=== PATIENT | male | born 1965 | race Caucasian/White ===

== ENCOUNTER 2016-08-25 10:53 | Outpatient (CLI) | payer MEDICARE, MEDICAID ==
[~2016-08-25] VITALS: Ht 182.9 cm; Wt 90.7 kg
[~2016-08-25 10:53] MED LIST: ALBU8.5H2 IH; ATR20T PO; DICL75TA2 PO; DULO60CA6 PO; FLUT1DIS26 IH; GBPN300C PO; MIRT30TA6 PO; MRTZ30T1 PO; TRM50T PO; VARE1TAB17 PO
[2016-08-25] MEDS ORDERED: BUPIVACAINE 0.25% 30 ML (SENSORCAINE) VIAL ONE (11:42)
[2016-08-25] MEDS ORDERED: TRIAMCINOLONE ACET (KENALOG-40) 40 MG/ML 1 ML VIAL ONE (11:42)
[2016-08-25 12:02] VITALS: BP 144/106
[2016-08-25 12:51] VITALS: BP 139/108
--- NOTE | 2016-08-25 14:48 | Pain Medicine-Procedure ---
Procedure Pre-Op/Post-Op Diagnosis Diagnosis: disc disorder with radiculopathy, lumbar Indications for Operation Low back pain Attending Surgeon Lawrence Procedure Date of Service: Aug 25, 2016 Procedure: Lumbar Epidural Steroid Injection at the L4-L5 level under Fluoroscopic Guidance Procedure: Patient was identified in the holding area. After risks, benefits, and alternatives were discussed with the patient, informed consent was obtained. Patient was brought to the fluoroscopy suite and placed prone on the procedure room table. A time out was performed. Vital signs were monitored throughout the procedure. The patients low back was prepped and draped in the usual sterile fashion. The patients skin was anesthetized using 2% Lidocaine. A Tuohy needle was inserted and advanced to the L4-L5 epidural space under fluoroscopic guidance using the loss of resistance technique and intermittent projection of fluoroscopy. There was no paresthesia with needle placement. The needle position was confirmed in both the AP and lateral view. After negative aspiration 2ml of contrast was injected under live fluoroscopy which showed good spread of the contrast in the epidural space at the appropriate level, there was no intravascular or subarachnoid spread. Again, after negative aspiration for heme or CSF, 2 ml of 0.25% Bupivicaine, 2ml of preservative free normal saline, and 80mg of Kenalog was injected. The needle was removed and a sterile bandage was placed and the patient was transferred to the recovery area in stable condition. After a brief period of observation, patient was discharged to home with no new neurological deficits and no apparent complications. Complications None THAD PEÑA MD Aug 25, 2016 2:48 pm
== END 2016-08-25 12:52 | disposition home or self-care (01) ==
LOC: CARD 10:53
PROVIDERS: ATTEND Pain Medicine Pain Medicine
DX: M51.16 Intervertebral disc disorders with radiculopathy, lumbar region (principal); Z79.899 Other long term (current) drug therapy
CPT/HCPCS: 62323

== ENCOUNTER 2019-04-24 13:06 | Emergency (ER) | payer MEDICAID, MEDICARE ==
[~2019-04-24] VITALS: Ht 182.9 cm; Wt 88.6 kg
--- NOTE | 2019-04-24 13:24 | ED Lower Extremity ---
General Chief Complaint: Lower Extremity Stated Complaint: FALL - LT KNEE PAIN Source: patient Exam Limitations: no limitations History of Present Illness Date Seen by Provider: Apr 24, 2019 Time Seen by Provider: 13:10 Initial Comments The patient is a 54-year-old male presents for evaluation of left knee pain. He states that he was in a parking lot when he fell directly onto the left knee. He is not sure why this happened. He reports previous anterior cruciate ligament surgery to the knee about 2 years ago. He states that he has a knee immobilizer and crutches at home. He was able to drive himself to the emergency department and ambulated into the room without any difficulty or assistance. He denies any other injuries or complaints from the fall and specifically denies any head or neck pain. Pain/Injury Location: left knee Method of Injury: fell Modifying Factors: Improves With Movement (makes it worse), Improves With Rest (makes it better) Allergies and Home Medications Allergies Coded Allergies: No Known Drug Allergies (Unverified , 01/23/12) Home Medications Albuterol 8.5 Gm Hfa.aer.ad, 8.5 GM IH Q4H, (Reported) 2 PUFFS Atorvastatin 20 Mg Tablet, 1 EACH PO DAILY, (Reported) Diclofenac Sodium 75 Mg Tablet.dr, 75 MG PO BID, (Reported) Duloxetine Hcl 60 Mg Capsule.dr, 1 EACH PO DAILY, (Reported) Fluticasone/Salmeterol 1 Disk Inhp, 1 PUFF IH BID, (Reported) 1 PUFF Gabapentin 300 Mg Cap, 300 MG PO DAILY, (Reported) Mirtazapine 30 Mg Tablet, 30 MG PO HS, (Reported) Mirtazapine 30 Mg Tab, 1 EACH PO HS, (Reported) Tramadol Hcl 50 Mg Tab, 50 MG PO Q4H, (Reported) Varenicline Tartrate 1 Mg Tablet, 1 MG PO BID, (Reported) Patient Home Medication List Home Medication List Reviewed: Yes Review of Systems Constitutional: no symptoms reported EENTM: no symptoms reported Respiratory: no symptoms reported Cardiovascular: no symptoms reported Gastrointestinal: no symptoms reported Genitourinary: no symptoms reported Musculoskeletal: no symptoms reported Skin: no symptoms reported Psychiatric/Neurological: No Symptoms Reported All Other Systems Reviewed Negative Unless Noted: Yes Past Lqvashd-Xdkycj-Zlgpex Hx Past Med/Social Hx: Reviewed Nursing Past Med/Soc Hx Physical Exam Vital Signs Vital Signs - First Documented 04/24/19 13:10 Temp 36.4 Pulse 98 Resp 22 B/P (MAP) 141/91 (108) Pulse Ox 97 O2 Delivery Room Air Capillary Refill : Height, Weight, BMI Height: 6'0.00" Weight: 200lbs. 0.0oz. 90.370042yt; 27.1 BMI Method: General Appearance: WD/WN, no apparent distress HEENT: PERRL/EOMI, TMs normal, pharynx normal Neck: non-tender, full range of motion Cardiovascular: regular rate, rhythm, no edema, no JVD Respiratory: chest non-tender, normal breath sounds, no respiratory distress, no accessory muscle use Gastrointestinal: normal bowel sounds, non tender, soft Back: normal inspection, no CVA tenderness Hips: bilateral hip non-tender, bilateral hip normal inspection, bilateral hip normal range of motion Knees: right knee non-tender, right knee normal inspection, right knee normal range of motion; left knee bone tenderness (tenderness palpation over the left medial patella, no deformity noted, most swelling or joint effusion, negative anterior drawer sign, no apparent discomfort with varus or valgus strain) 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 Advised the patient to use his crutches and knee immobilizer at home and to follow up with his orthopedic surgeon and/or PCP within the next 2-3 days. Advised the patient to take Tylenol or ibuprofen at home for pain relief and to take the prescribed Ultram as needed for breakthrough pain. Diagnostic Imaging Comments [facility], [place] NAME: JUVENAL MALIN [facility] REC#: [id number] PT STATUS: REG ER : 1965 PHYSICIAN: BLAKE ADAMS DO ADMIT DATE: 04/24/19/ER FS Draft Date of Exam:04/24/19 KNEE 3 VIEW LEFT INDICATION: Fall. Left knee pain. History of previous ACL repair. FINDINGS: Three views. Surgical changes from previous ACL repair are noted. Surgical anchor along the lateral femoral condyle is in good position. ACL tunnel is present without significant hypertrophic changes noted. The articulating surfaces are smooth. There is some narrowing of the medial joint space likely from previous partial meniscectomy. IMPRESSION: 1. No acute abnormality is demonstrated. 2. Postsurgical changes with mild narrowing of the medial joint space. Dictated on workstation # [id number] Dict: 04/24/19 1327 Trans: 04/24/19 1336 [id number] Interpreted by: ARIELLA BYERS MD Electronically signed by: Departure Impression Primary Impression: Left knee injury Disposition: HOME, SELF-CARE Condition: Stable Departure-Patient Inst. Decision time for Depature: 14:12 Referrals: JUMA QUACH DO (PCP) Primary Care Physician ARIELLA SHEIKH (Family) Primary Care Physician Patient Instructions: Knee Pain (DC) Add. Discharge Instructions: Use your knee immobilizer and crutches at home. Follow-up with your orthopedic doctor in the next 1-2 days. Return to the ER immediately for new or worsening symptoms. Take the prescribed medicine as needed. Scripts Tramadol HCl (Ultram) 50 Mg Tablet 50 MG PO Q6H PRN for PAIN-MODERATE, #8 TAB Prov: BLAKE ADAMS DO 04/24/19 BLAKE ADAMS DO Apr 24, 2019 13:24
--- NOTE | 2019-04-24 13:37 | Diagnostic Imaging Report ---
INDICATION: Fall. Left knee pain. History of previous ACL repair. FINDINGS: Three views. Surgical changes from previous ACL repair are noted. Surgical anchor along the lateral femoral condyle is in good position. ACL tunnel is present without significant hypertrophic changes noted. The articulating surfaces are smooth. There is some narrowing of the medial joint space likely from previous partial meniscectomy. IMPRESSION: 1. No acute abnormality is demonstrated. 2. Postsurgical changes with mild narrowing of the medial joint space. Dictated by: Dictated on workstation # [id number]
[2019-04-24] MEDS ORDERED: TRAM-42 PO (14:14)
[2019-04-24 14:40] VITALS: BP 141/91
== END 2019-04-24 14:31 | disposition home or self-care (01) ==
LOC: EDUNIT# 13:06 → ER FS 13:08
DX: S89.92XA Unspecified injury of left lower leg, initial encounter (principal); W01.0XXA Fall on same level from slipping, tripping and stumbling without subsequent striking against object, initial encounter; Y92.481 Parking lot as the place of occurrence of the external cause
CPT/HCPCS: 73562

== ENCOUNTER → 2019-09-12 | Outpatient (CLI) | payer MEDICARE ==
[~2019-09-12] MED LIST changes: +TRAM-42 PO
[2019-09-12 15:38] LABS: HEMATOCRIT 46 % (40-54); LYMPHOCYTES % (AUTO) 22 % (12-44); MEAN CORPUSCULAR HEMOGLOBIN 29 PG (25-34); MEAN CORPUSCULAR HGB CONC 33 G/DL (32-36); MEAN CORPUSCULAR VOLUME 89 FL (80-99); MEAN PLATELET VOLUME 9.9 FL (7.4-10.4); MONOCYTES % (AUTO) 16 % (0-12); PLATELET COUNT 238 10^3/uL (130-400); RED CELL DISTRIBUTION WIDTH 13.1 % (10.0-14.5); WHITE BLOOD COUNT 7.8 10^3/uL (4.3-11.0)
[2019-09-12 15:39] LABS: BASOPHILS # (AUTO) 0.1 10^3/uL (0.0-0.1); BASOPHILS % (AUTO) 1 % (0-10); EOSINOPHILS # (AUTO) 0.1 10^3/uL (0.0-0.3); EOSINOPHILS % (AUTO) 1 % (0-10); LYMPHOCYTES # (AUTO) 1.7 X 10^3 (1.0-4.0); MONOCYTES # (AUTO) 1.3 X 10^3 (0.0-1.0); NEUTROPHILS # (AUTO) 4.7 X 10^3 (1.8-7.8); NEUTROPHILS % (AUTO) 60 % (42-75)
--- NOTE | 2019-09-12 16:21 | Diagnostic Imaging Report ---
INDICATION: Left knee pain and swelling. FINDINGS: Three views of the left knee show post surgical changes from ACL reconstruction. There is no acute fracture or dislocation. The joint spaces are well-maintained. The articular surfaces are smooth. IMPRESSION: Postop changes from ACL reconstruction. No acute abnormality is seen. Dictated by: Dictated on workstation # [id number]
== END ==
LOC: LAB FS 15:17
PROVIDERS: ATTEND Nurse Practitioner Family
DX: M25.462 Effusion, left knee (principal); R29.898 Other symptoms and signs involving the musculoskeletal system
CPT/HCPCS: 36415; 73562; 85025

== ENCOUNTER 2019-10-05 05:54 | Outpatient (CLI) | payer MEDICARE ==
[~2019-10-05] VITALS: Ht 182 cm; Wt 95.0 kg
[2019-10-05] MEDS ORDERED: GBPN600T PO (12:05)
[2019-10-05] MEDS ORDERED: CITA40TA19 PO (12:05)
[2019-10-05] MEDS ORDERED: ATOR40TA PO (12:05)
[2019-10-05] MEDS ORDERED: AMIT25TA9 PO (12:05)
== END 2019-10-05 13:59 | disposition home or self-care (01) ==
LOC: PREOP 05:54
PROVIDERS: ATTEND Orthopaedic Surgery
DX: Z01.818 Encounter for other preprocedural examination (principal)

== ENCOUNTER 2019-10-12 10:02 | Day surgery (SDC) | payer MEDICARE, MEDICAID ==
[2019-10-12] VITALS (10 sets, daily range): BP systolic 119–146; BP diastolic 75–99
[~2019-10-12] VITALS: Ht 182 cm; Wt 95.0 kg
[~2019-10-12 10:02] MED LIST changes: +AMIT25TA9 PO; +ATOR40TA PO; +CITA40TA19 PO; +GBPN600T PO; +HYDROcodone/APAP 7.5 MG/325 MG (LORTAB, LORCET PLUS) TABLET PO PRN
[2019-10-12] MEDS ORDERED: proPOfol 200 MG/20 ML (DIPRIVAN) VIAL IV ONE (10:28)
[2019-10-12] MEDS ORDERED: LIDOCAINE PF 2% 5 ML (XYLOCAINE) VIAL ONE (10:28)
[2019-10-12] MEDS ORDERED: MIDAZOLAM 2 MG/2 ML (VERSED) VIAL ONE (10:28)
[2019-10-12] MEDS ORDERED: SEVOFLURANE (ULTANE) 15 ML INHAL SOLN ONE (10:28)
[2019-10-12] MEDS ORDERED: fentaNYL INJECTION 100 MCG/2 ML AMP ONE (10:28)
[2019-10-12] MEDS ORDERED: BUPIVACAINE 0.5% 30 ML (SENSORCAINE) VIAL ONE (10:31)
[2019-10-12] MEDS ORDERED: ceFAZolin INJECTION 1,000 MG ONE (10:37)
[2019-10-12] MEDS ORDERED: WATER (STERILE) FOR INJECTION 10 ML ONE (10:37)
[2019-10-12] MEDS ORDERED: LACTATED RINGERS 1,000 ML IV PRN (10:37)
[2019-10-12] MEDS ORDERED: ceFAZolin INJECTION 1,000 MG in WATER (STERILE) FOR INJECTION 10 ML IV ONE (10:45)
--- NOTE | 2019-10-12 11:10 | Progress Note-Pre Operative ---
Pre-Operative Progress Note H&P Reviewed The H&P was reviewed, patient examined and no changes noted. Date Seen by Provider: Oct 12, 2019 Time Seen by Provider: 11:00 Date H&P Reviewed: Oct 12, 2019 Time H&P Reviewed: 07:35 Pre-Operative Diagnosis: symptomatic deep left tibia hardware JER HICKMAN MD Oct 12, 2019 11:10
--- NOTE | 2019-10-12 11:11 | Progress Note-Post Operative ---
Post-Operative Progess Note Surgeon (s)/Advertising Sales Assistant (s) Surgeon JER HICKMAN MD Advertising Sales Assistant: Valentin Buckley Pre-Operative Diagnosis symptomatic deep left tibia hardware Post-Operative Diagnosis let tibia cyst Procedure & Operative Findings Date of Procedure 10/12/19 Procedure Performed/Findings left tibia cyst excision and debridement Anesthesia Type GETA Estimated Blood Loss Estimated blood loss (mL): minimal Specimens/Packing Specimens Removed none Packing: none JER HICKMAN MD Oct 12, 2019 11:11
--- OUTSIDE RECORDS SUMMARY | 2019-10-12 11:14 | XMS REPORT ---
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 Name Role Phone Migration, Doctor Unavailable Unavailable PROBLEMS Type Condition ICD9-CM Code XZE41-GZ Code Onset Dates Condition S tatus SNOMED Code Problem Closed nondisplaced fracture of distal phalanx o f left ring finger S62.665A Jul, Active 02262818 Problem Insomnia G47.00 Active 530277716 Problem Mixed hyperlipidemia E78.2 Apr, Active 921939630 Problem Anxiety F41.9 Active 80675772 Problem Depression F32.9 Active 72171846 Problem Tremor, essential G25.0 Apr, Active 147888879 Problem Tobacco use Z72.0 Jul, Active 40322 3000 Problem Severe episode of recurrent major depressive disorder, without psychotic features F33.2 Active 49478774 Problem Generalized anxiety disorder F41.1 A ctive 09895508 Problem Depression, major, recurrent, in partial remission F33.41 Active 40999685 Problem COPD (chronic obstructive pulmonary disease) J44.9 Active 97430903 Problem Reactive airway disease, mild persistent, uncomplicated J45.30 Active 049887819 Problem Degenerative disc disease, lumbar M51.36 Active 11950403 Problem Pulmonary emphysema, unspecified emphysema type J4 3.9 Active 67558491 Problem Hyperlipemia E78.5 Active 9331865 4 Problem Essential hypertension I10 Active 94273683 Problem Mild episode of recurrent major depressive disorder F33.0 Active 681938530 Problem Edentulous K00.0 Active 009295313 ALLERGIES No Information ENCOUNTERS Encounter Location Date Diagnosis [facility] [address] [id number] [place] [address] 08 Dec, 2019 [facility] [address] [id number] [place] [address] Sep, [facility] [address] [id number] [place] [address] Sep, [place] [id number] [place] [address] Sep, [address] [place] [address] 17 Aug, 2019 Acute pain of left knee M25. 562 ; Swelling of knee M25.469 and Warmth of joint R29.898 [place] [address] [address] 11 Aug, 2019 [place] [address] [address] Aug, Hyperlipemia E78.5 [place] [address] [address] Jul, [place] [address] [address] Jul, Testicle trouble N50.9 ; Left knee pain, unspecified chronicity M25.562 ; Sore throat J02.9 and Hyperlipemia E78.5 [place] [address] [address] Jul, Generalized anxiety disorder F41.1 and M ild episode of recurrent major depressive disorder F33.0 [place] [address] [address] Jun, [place] [address] [address] Jun, [place] [address] [address] Jun, Testicle trouble N50.9 ; Generalized anx iety disorder F41.1 ; Hyperlipemia E78.5 ; COPD (chronic obstructive pulmonary disease) J44.9 and Tobacco abuse Z72.0 [place] [address] [address] Jun, Testicle trouble N50.9 ; Generalized anx iety disorder F41.1 ; Hyperlipemia E78.5 ; COPD (chronic obstructive pulmonary disease) J44.9 and Tobacco abuse Z72.0 [facility] [address] [facility] [place] [address] Jun, Generalized anxiety disorder F41.1 ; Mil d episode of recurrent major depressive disorder F33.0 and Mild episode of recurrent major depressive disorder F33.0 [facility] [address] [place] [address] May, Encounter for immunization Z 23 [facility] [address] [address] May, Mild episode of recurrent major depressi ve disorder F33.0 and Generalized anxiety disorder F41.1 [place] [id number] [place] [address] Apr, Generalized anxiety disorder F41.1 [place] [address] [address] Apr, Generalized anxiety disorder F41.1 and M ild episode of recurrent major depressive disorder F33.0 [facility] [id number] [place] [address] Mar, [facility] [address] [place] [address] Mar, [facility] [address] [id number] [place] [address] Jan, Generalized anxiety disorder F41.1 and M ild episode of recurrent major depressive disorder F33.0 [facility] [id number] [place] [address] Jan, Mild episode of recurrent major depressi ve disorder F33.0 ; Generalized anxiety disorder F41.1 and Mild episode of recurrent major depressive disorder F33.0 [facility] [id number] [place] [address] Dec, [facility] [id number] [place] [address] Dec, Generalized anxiety disorder F41.1 and M ild episode of recurrent major depressive disorder F33.0 [facility] [id number] [place] [address] November, Mild episode of recurrent major depressi ve disorder F33.0 and Generalized anxiety disorder F41.[address] [place] [address] November, [facility] [address] [address] Oct, Essential hypertension I10 [facility] [address] [address] Oct, Generalized anxiety disorder F41.1 and M ild episode of recurrent major depressive disorder F33.0 [place] [address] [address] Oct, Encounter for Medicare annual wellness e xam Z00.00 ; COPD (chronic obstructive pulmonary disease) J44.9 ; Mild episode of recurrent major depressive disorder F33.0 ; Mixed hyperlipidemia E78.2 ; Degenerative disc disease, lumbar M51.36 and Left foot pain M79.672 [place] [address] [address] Oct, Generalized anxiety disorder F41.1 and M ild episode of recurrent major depressive disorder F33.0 [facility] [address] [address] Oct, Generalized anxiety disorder F41.1 and M ild episode of recurrent major depressive disorder F33.0 [facility] [address] [address] Oct, Generalized anxiety disorder F41.1 [facility] [address] [address] Sep, Hyperlipemia E78.5 and Depression F32.9 [facility] [address] [address] Sep, [facility] [address] [address] Sep, Generalized anxiety disorder F41.1 and M ild episode of recurrent major depressive disorder F33.0 [facility] [id number] [place] [address] Sep, Generalized anxiety disorder F41.1 and M ild episode of recurrent major depressive disorder F33.0 [facility] [address] [facility] [place] [address] Aug, Mild episode of recurrent major depressi ve disorder F33.0 and Generalized anxiety disorder F41.1 [facility] [address] [facility] [place] [address] Jul, Generalized anxiety disorder F41.1 and M ild episode of recurrent major depressive disorder F33.0 [facility] [id number] [place] [address] Jul, Mild episode of recurrent major depressi ve disorder F33.0 and Generalized anxiety disorder F41.1 [facility] [id number] [place] [address] Jul, [facility] [address] [id number] [place] [address] Jun, [facility] [id number] [place] [address] Jun, [facility] [id number] [place] [address] Jun, Generalized anxiety disorder F41.1 and M ild episode of recurrent major depressive disorder F33.0 [facility] [id number] [place] [address] Jun, [facility] [id number] [place] [address] Feb, Mild episode of recurrent major depressi ve disorder F33.0 and Generalized anxiety disorder F41.1 [facility] [id number] [place] [address] November, Mild episode of recurrent major depressi ve disorder F33.0 and Generalized anxiety disorder F41.1 [place] [address] [address] November, [place] [address] [address] November, Mild episode of recurrent major depressi ve disorder F33.0 and Generalized anxiety disorder F41.1 [place] [address] [address] November, Mild episode of recurrent major depressi ve disorder F33.0 [place] [address] [address] Sep, Mild episode of recurrent major depressi ve disorder F33.0 [place] [address] [address] Sep, Acute pain of left knee M25.562 [place] [address] [address] 28 Aug, 2017 Mild episode of recurrent major depressi ve disorder F33.0 and Generalized anxiety disorder F41.1 [place] [address] [address] 15 Aug, 2017 Hyperlipemia E78.5 [place] [address] [address] 07 Aug, 2017 Acute pain of left knee M25.562 [place] [address] [address] 05 Aug, 2017 [place] [address] [address] Jul, COPD (chronic obstructive pulmonary dise ase) J44.9 and Edentulous K00.0 [place] [address] [address] Jul, Dental examination Z01.20 [place] [address] [address] Jul, Severe episode of recurrent major depres sive disorder, without psychotic features F33.2 [facility] [address] [address] Jun, Severe episode of recurrent major depres sive disorder, without psychotic features F33.2 and Generalized anxiety disorder F41.1 [facility] [address] [address] Jun, Callus of foot L84 ; Hyperlipemia E78.5 and Pulmonary emphysema, unspecified emphysema type J43.9 [facility] [address] [address] May, Generalized anxiety disorder F41.1 and M ild episode of recurrent major depressive disorder F33.0 [place] [address] [address] 07 May, 2017 Severe episode of recurrent major depres sive disorder, without psychotic features F33.2 [place] [address] [address] Apr, [place] [address] [address] Apr, Severe episode of recurrent major depres sive disorder, without psychotic features F33.2 and Generalized anxiety disorder F41.1 [place] [address] [address] Mar, Generalized anxiety disorder F41.1 [place] [address] [address] Feb, Hyperlipemia E78.5 [place] [address] [address] Feb, Generalized anxiety disorder F41.1 and S evere episode of recurrent major depressive disorder, without psychotic features F33.2 [place] [address] [address] Feb, Hyperlipemia E78.5 [facility] [address] [address] Feb, Generalized anxiety disorder F41.1 [place] [address] [address] Feb, Depression, major, recurrent, in partial remission F33.41 ; Hyperlipemia E78.5 ; Night sweats R61 ; Reactive airway disease, mild persistent, uncomplicated J45.30 and Essential hypertension I10 [place] [address] [address] Jan, Generalized anxiety disorder F41.1 and S evere episode of recurrent major depressive disorder, without psychotic features F33.2 [place] [address] [address] Dec, Anxiety F41.9 [place] [address] [address] Dec, Depression, major, recurrent, moderate F 33.1 ; Generalized anxiety disorder F41.1 and Insomnia G47.00 [place] [address] [address] November, Anxiety F41.9 [place] [address] [address] Sep, Depression, major, recurrent, in partial remission F33.41 [place] [address] [address] Sep, Reactive airway disease, mild persistent , uncomplicated J45.30 [place] [address] [address] Aug, Depression, major, recurrent, in partial remission F33.41 [place] [address] [address] Aug, Depression, major, recurrent, in partial remission F33.41 and Generalized anxiety disorder F41.1 [place] [address] [address] Jul, [place] [address] [address] May, Anxiety F41.9 [place] [address] [address] May, Depression, major, recurrent, moderate F 33.1 and Generalized anxiety disorder F41.1 [place] [address] [address] May, [place] [address] [address] Apr, [place] [address] [address] 29 Mar, 2016 Degenerative disc disease, lumbar M51.36 and Left foot pain M79.672 [place] [address] [address] Mar, Dysthymia F34.1 and Generalized anxiety disorder F41.1 [place] [address] [address] Jan, Depression, major, recurrent, in partial remission F33.41 ; Generalized anxiety disorder F41.1 and Difficulty controlling anger R45.4 [place] [address] [address] Jan, [place] [address] [address] Jan, [place] [address] [address] Jan, Dental examination Z01.20 [place] [address] [address] Jan, Back pain at L4-L5 level M54.5 [place] [address] [address] Dec, Low back pain M54.5 ; Other chronic pain G89.29 and Hyperlipemia E78.5 [place] [address] [address] Dec, Depression F32.9 ; Generalized anxiety d isorder F41.1 and Outbursts of anger R45.4 [facility] [id number] [place] [address] Dec, [facility] [address] [facility] [id number] [place] [address] November, Pain of right great toe M79. 674 [facility] [address] [address] November, [facility] [address] [address] November, [facility] [address] [address] Oct, [facility] [address] [address] Sep, [facility] [address] [address] Sep, [facility] [address] [address] Sep, COPD (chronic obstructive pulmonary dise ase) J44.9 ; Hyperlipidemia E78.5 ; Anxiety F41.9 ; Depression F32.9 and Insomnia G47.00 [facility] [address] [address] Sep, Depression F32.9 ; Anxiety F41.9 and Ins omnia G47.00 [facility] [address] [address] Sep, [facility] [address] [address] Sep, [facility] [address] [address] Sep, COPD (chronic obstructive pulmonary dise ase) J44.9 [facility] [address] [address] Sep, Hyperlipemia E78.5 [facility] [address] [address] Aug, COPD (chronic obstructive pulmonary dise ase) J44.9 ; Hyperlipidemia E78.5 ; Anxiety F41.9 ; Insomnia G47.00 ; Depression F32.9 and Heavy tobacco smoker >10 cigarettes per day F17.210 [facility] [address] [address] Aug, [facility] [address] [address] Aug, [facility] [address] [address] Aug, [place] [address] [address] Aug, Bronchitis J40 [place] [address] [address] Aug, [place] [address] [address] Jul, [facility] [address] [id number] Jul, Dental examination Z01.20 and Dental car ies K02.[address] [address] Jun, [place] [address] [address] Jun, Encounter for immunization Z23 ; Screeni ng for tuberculosis Z11.1 and Physical exam Z00.00 [place] [address] [address] May, [address] [address] May, Generalized anxiety disorder F41.1 and D epression, major, recurrent, in partial remission F33.[address] [address] Apr, Hyperlipidemia E78.5 [facility] [id number] [place] [address] Mar, Hyperlipemia 272.4 [facility] [address] [address] Feb, Routine general medical examination at [facility] V70.0 and Abrasion of hand, right, infected 914.1 [facility] [address] [address] Feb, Routine general medical examination at [facility] V70.0 ; Pain in soft tissues of limb 729.5 and Pain in tooth 525.9 [place] [address] [address] Feb, Major depressive disorder, recurrent epi sode, mild 296.31 and Generalized anxiety disorder 300.02 [place] [address] [address] Feb, [facility] [address] [address] Jan, [facility] [address] [address] Dec, [facility] [address] [address] Dec, [facility] [address] [address] November, [facility] [address] [address] November, Generalized anxiety disorder 300.02 and Major depressive disorder, recurrent episode, mild 296.31 [facility] [address] [address] Oct, [facility] [address] [address] Oct, [facility] [address] [address] Sep, [facility] [address] [id number] [facility] [place] [address] Sep, [facility] [place] [facility] [address] [id number] [place] [address] Sep, [facility] [place] [facility] [address] [id number] [place] [address] Sep, [facility] [place] [facility] [address] [id number] [place] [address] Aug, [facility] [place] [facility] [address] [id number] [place] [address] Aug, [facility] [place] [facility] [address] [id number] [place] [address] Aug, [facility] [place] [facility] [address] [id number] [place] [address] Aug, [facility] [place] [facility] [address] [id number] [place] [address] Aug, [facility] [place] [facility] [address] [id number] [place] [address] Aug, [facility] [place] [facility] [address] [id number] [place] [address] Aug, [facility] [place] [facility] [address] [id number] [place] [address] Jul, [facility] [place] [facility] [address] [id number] [place] [address] Jul, [facility] [place] [facility] [address] [id number] [place] [address] Jul, [facility] [place] [facility] [address] [id number] [place] [address] Jul, [facility] [place] [facility] [address] [id number] [place] [address] Jul, [facility] [place] [facility] [address] [id number] [place] [address] Jul, [facility] [place] [facility] [address] [id number] [place] [address] Jun, [facility] [place] [facility] [address] [facility] [id number] [facility] [place] [address] Jun, [facility] [place] [facility] [address] [facility] [id number] [facility] [place] [address] Feb, [facility] [place] [facility] [address] [id number] [facility] [place] [address] Feb, [facility] [place] [facility] [address] [id number] [place] [address] Jan, [facility] [place] [facility] [address] [facility] [id number] [place] [address] Jan, [facility] [place] [facility] [address] [id number] [place] [address] Jan, [facility] [place] [facility] [address] [id number] [facility] [place] [address] Jan, [facility] [place] [facility] [address] [id number] [facility] [place] [address] Oct, [facility] [place] [facility] [address] [id number] [facility] [place] [address] Oct, [facility] [place] [facility] [address] [id number] [place] [address] Oct, [facility] [place] [facility] [address] [id number] [place] [address] Oct, [facility] [place] [facility] [address] [id number] [place] [address] Oct, [facility] [place] [facility] [address] [id number] [place] [address] Oct, [facility] [place] [facility] [address] [id number] [place] [address] Sep, [facility] [place] [facility] [address] [id number] [place] [address] Sep, [facility] [place] [facility] [address] [id number] [place] [address] Aug, [facility] [place] [facility] [address] [id number] [place] [address] Aug, [facility] [place] [facility] [address] [facility] [id number] [place] [address] Jul, [facility] [place] [facility] [address] [id number] [place] [address] Jul, [facility] [place] [facility] [address] [id number] [place] [address] Jul, [facility] [place] [facility] [address] [id number] [place] [address] Jul, [facility] [place] [facility] [address] [id number] [place] [address] Jul, [facility] [place] [facility] [address] [id number] [place] [address] Apr, [facility] [place] [facility] [address] [id number] [place] [address] Apr, [facility] [place] [facility] [address] [id number] [place] [address] Mar, [facility] [place] [facility] [address] [id number] [place] [address] Feb, [facility] [place] [facility] [address] [id number] [place] [address] Jan, [facility] [place] [facility] [address] [id number] [place] [address] Jan, [facility] [place] [facility] [address] [id number] [place] [address] Oct, [facility] [place] [facility] [address] [id number] [place] [address] Sep, [facility] [place] [facility] [address] [id number] [place] [address] Sep, [facility] [place] [facility] [address] [id number] [place] [address] Sep, [facility] [address] [id number] [place] [address] Aug, [facility] [address] [id number] [place] [address] Aug, [facility] [address] [id number] [place] [address] May, [facility] [address] [id number] [place] [address] May, [facility] [address] [id number] [place] [address] May, [facility] [address] [id number] [place] [address] May, [facility] [address] [id number] [place] [address] May, [facility] [address] [id number] [place] [address] May, [facility] [id number] [place] [address] May, [facility] [address] [id number] [place] [address] May, [facility] [address] [id number] [place] [address] Apr, [facility] [address] [id number] [place] [address] Feb, [facility] [address] [id number] [place] [address] Jan, [facility] [address] [id number] [place] [address] Jan, [facility] [address] [id number] [place] [address] Jan, [facility] [address] [id number] [place] [address] Jan, [facility] [address] [id number] [place] [address] Jan, [facility] [address] [id number] [place] [address] Jan, [facility] [address] [id number] [facility] [place] [address] Dec, [facility] [address] [id number] [place] [address] Dec, [facility] [address] [id number] [place] [address] Dec, [facility] [address] [id number] [place] [address] Dec, [facility] [address] [id number] [place] [address] Dec, [facility] [address] [id number] [place] [address] November, [facility] [address] [id number] [place] [address] November, [facility] [address] [id number] [place] [address] November, [facility] [address] [id number] [place] [address] November, [facility] [address] [id number] [place] [address] November, [facility] [address] [id number] [place] [address] Oct, [facility] [address] [id number] [place] [address] Oct, [facility] [address] [id number] [place] [address] Oct, [facility] [address] [id number] [place] [address] May, [facility] [address] [id number] [place] [address] May, [facility] [address] [id number] [place] [address] May, [facility] [id number] [place] [address] May, [facility] [id number] [place] [address] Aug, [facility] [id number] [place] [address] Jul, [facility] [id number] [place] [address] Jun, [facility] [id number] [place] [address] Jun, [facility] [id number] [place] [address] May, [facility] [id number] [place] [address] May, [facility] [id number] [place] [address] Apr, [facility] [id number] [place] [address] Apr, [facility] [id number] [place] [address] Apr, [facility] [id number] [place] [address] Apr, [facility] [id number] [place] [address] Mar, [facility] [id number] [place] [address] November, [facility] [id number] [place] [address] Oct, [facility] [id number] [place] [address] 16 Mar, 2009 IMMUNIZATIONS No Known Immunizations SOCIAL HISTORY Never Assessed REASON FOR VISIT PLAN OF CARE VITAL SIGNS MEDICATIONS Unknown Medications RESULTS No Results PROCEDURES No Known procedures INSTRUCTIONS MEDICATIONS ADMINISTERED No Known Medications MEDICAL (GENERAL) HISTORY Type Description Date Medical History major depression Medical History anxiety Medical History psychosis Medical History mood disorder Medical History treadmill stress test 12/2011- WNL Medical History neuropathy 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
--- OUTSIDE RECORDS SUMMARY | 2019-10-12 11:14 | XMS REPORT ---
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 Machine Name Role Phone HEIDE Stacy Unavailable PROBLEMS Type Condition ICD9-CM Code HEZ54-PU Code Onset Dates Condition S tatus SNOMED Code Problem Tobacco use Z72.0 Jul, Active 54899 3000 Problem Mixed hyperlipidemia E78.2 Apr, Active 178309800 Problem Reactive airway disease, mild persistent, uncomplicated J45.30 Active 520742828 Problem Pulmonary emphysema, unspecified emphysema type J4 3.9 Active 12010194 Problem Generalized anxiety disorder F41.1 A ctive 02848796 Problem COPD (chronic obstructive pulmonary disease) J44.9 Active 64782791 Problem Closed nondisplaced fracture of distal phalanx o f left ring finger S62.665A Jul, Active 43307297 Problem Degenerative disc disease, lumbar M51.36 Active 96622743 Problem Tremor, essential G25.0 Apr, Active 805699257 Problem Hyperlipemia E78.5 Active 6832932 4 Problem Essential hypertension I10 Active 50503717 Problem Mild episode of recurrent major depressive disorder F33.0 Active 726699625 Problem Edentulous K00.0 Active 185386745 ALLERGIES No Information ENCOUNTERS Encounter Location Date Diagnosis [facility] [address] [id number] [place] [address] Dec, [facility] [address] [id number] [place] [address] Oct, [facility] [address] [id number] [place] [address] Oct, [facility] [address] [id number] [place] [address] Sep, [facility] [id number] [place] [address] 09 Sep, 2019 Hyperlipemia E78.5 [facility] [address] [address] 09 Sep, 2019 Generalized anxiety disorder F41.1 and M ild episode of recurrent major depressive disorder F33.0 [facility] [id number] [place] [address] 05 Sep, 2019 Painful orthopaedic hardware T84.84XA [facility] [address] [address] 02 Sep, 2019 Generalized anxiety disorder F41.1 and M ild episode of recurrent major depressive disorder F33.0 [address] [place] [address] 17 Aug, 2019 Acute pain of left knee M25. 562 ; Swelling of knee M25.469 and Warmth of joint R29.898 [place] [address] [address] Aug, [facility] [address] [address] Aug, Hyperlipemia E78.5 [facility] [address] [address] Jul, [facility] [id number] [place] [address] Jul, Testicle trouble N50.9 ; Left knee pain, unspecified chronicity M25.562 ; Sore throat J02.9 and Hyperlipemia E78.5 [facility] [address] [address] Jul, Generalized anxiety disorder F41.1 and M ild episode of recurrent major depressive disorder F33.0 [facility] [id number] [place] [address] Jun, [facility] [address] [address] Jun, [facility] [address] [id number] [place] [address] Jun, Testicle trouble N50.9 ; Generalized anx iety disorder F41.1 ; Hyperlipemia E78.5 ; COPD (chronic obstructive pulmonary disease) J44.9 and Tobacco abuse Z72.0 [facility] [id number] [place] [address] Jun, Testicle trouble N50.9 ; Generalized anx iety disorder F41.1 ; Hyperlipemia E78.5 ; COPD (chronic obstructive pulmonary disease) J44.9 and Tobacco abuse Z72.0 [place] [address] [address] Jun, Generalized anxiety disorder F41.1 ; Mil d episode of recurrent major depressive disorder F33.0 and Mild episode of recurrent major depressive disorder F33.0 [facility] [address] [place] [address] May, Encounter for immunization Z 23 [place] [id number] [place] [address] May, Mild episode of recurrent major depressi ve disorder F33.0 and Generalized anxiety disorder F41.1 [place] [id number] [place] [address] Apr, Generalized anxiety disorder F41.1 [place] [address] [address] Apr, Generalized anxiety disorder F41.1 and M ild episode of recurrent major depressive disorder F33.0 [facility] [address] [id number] [place] [address] Mar, [facility] [address] [place] [address] Mar, [facility] [address] [id number] [place] [address] Jan, Generalized anxiety disorder F41.1 and M ild episode of recurrent major depressive disorder F33.0 [facility] [id number] [place] [address] Jan, Mild episode of recurrent major depressi ve disorder F33.0 ; Generalized anxiety disorder F41.1 and Mild episode of recurrent major depressive disorder F33.0 [facility] [id number] [place] [address] Dec, [facility] [address] [address] Dec, Generalized anxiety disorder F41.1 and M ild episode of recurrent major depressive disorder F33.0 [facility] [address] [address] November, Mild episode of recurrent major depressi ve disorder F33.0 and Generalized anxiety disorder F41.1 [address] [place] [address] November, [place] [address] [address] Oct, Essential hypertension I10 [facility] [address] [address] Oct, Generalized anxiety disorder F41.1 and M ild episode of recurrent major depressive disorder F33.0 [place] [id number] [place] [address] Oct, Encounter for Medicare annual wellness e xam Z00.00 ; COPD (chronic obstructive pulmonary disease) J44.9 ; Mild episode of recurrent major depressive disorder F33.0 ; Mixed hyperlipidemia E78.2 ; Degenerative disc disease, lumbar M51.36 and Left foot pain M79.672 [facility] [address] [address] Oct, Generalized anxiety disorder F41.1 and M ild episode of recurrent major depressive disorder F33.0 [facility] [id number] [place] [address] Oct, Generalized anxiety disorder F41.1 and M ild episode of recurrent major depressive disorder F33.0 [facility] [address] [address] Oct, Generalized anxiety disorder F41.1 [facility] [address] [address] Sep, Hyperlipemia E78.5 and Depression F32.9 [facility] [address] [address] Sep, [facility] [address] [address] Sep, Generalized anxiety disorder F41.1 and M ild episode of recurrent major depressive disorder F33.0 [facility] [address] [address] Sep, Generalized anxiety disorder F41.1 and M ild episode of recurrent major depressive disorder F33.0 [facility] [address] [address] Aug, Mild episode of recurrent major depressi ve disorder F33.0 and Generalized anxiety disorder F41.1 [facility] [address] [address] Jul, Generalized anxiety disorder F41.1 and M ild episode of recurrent major depressive disorder F33.0 [facility] [address] [address] Jul, Mild episode of recurrent major depressi ve disorder F33.0 and Generalized anxiety disorder F41.1 [facility] [address] [address] Jul, [facility] [address] [address] Jun, [facility] [address] [address] Jun, [facility] [address] [address] Jun, Generalized anxiety disorder F41.1 and M ild episode of recurrent major depressive disorder F33.0 [facility] [address] [address] Jun, [facility] [address] [address] Feb, Mild episode of recurrent major depressi ve disorder F33.0 and Generalized anxiety disorder F41.1 [facility] [address] [address] November, Mild episode of recurrent major depressi ve disorder F33.0 and Generalized anxiety disorder F41.1 [facility] [address] [address] November, [place] [address] [address] November, Mild episode of recurrent major depressi ve disorder F33.0 and Generalized anxiety disorder F41.1 [place] [address] [address] November, Mild episode of recurrent major depressi ve disorder F33.0 [place] [address] [address] Sep, Mild episode of recurrent major depressi ve disorder F33.0 [place] [address] [address] Sep, Acute pain of left knee M25.562 [place] [address] [address] 28 Aug, 2017 Mild episode of recurrent major depressi ve disorder F33.0 and Generalized anxiety disorder F41.1 [facility] [address] [address] 15 Aug, 2017 Hyperlipemia E78.5 [facility] [address] [address] 07 Aug, 2017 Acute pain of left knee M25.562 [facility] [address] [address] Aug, [place] [address] [address] Jul, COPD (chronic obstructive pulmonary dise ase) J44.9 and Edentulous K00.0 [place] [address] [address] Jul, Dental examination Z01.20 [place] [address] [address] Jul, Severe episode of recurrent major depres sive disorder, without psychotic features F33.2 [place] [address] [address] Jun, Severe episode of recurrent major depres sive disorder, without psychotic features F33.2 and Generalized anxiety disorder F41.1 [place] [address] [address] Jun, Callus of foot L84 ; Hyperlipemia E78.5 and Pulmonary emphysema, unspecified emphysema type J43.9 [place] [address] [address] May, Generalized anxiety disorder F41.1 and M ild episode of recurrent major depressive disorder F33.0 [place] [address] [address] May, Severe episode of recurrent major depres sive disorder, without psychotic features F33.2 [place] [address] [address] Apr, [place] [address] [address] Apr, Severe episode of recurrent major depres sive disorder, without psychotic features F33.2 and Generalized anxiety disorder F41.1 [place] [address] [address] Mar, Generalized anxiety disorder F41.1 [place] [address] [address] Feb, Hyperlipemia E78.5 [place] [address] [address] Feb, Generalized anxiety disorder F41.1 and S evere episode of recurrent major depressive disorder, without psychotic features F33.2 [place] [address] [address] Feb, Hyperlipemia E78.5 [place] [address] [address] Feb, Generalized anxiety disorder F41.1 [place] [address] [address] Feb, Depression, major, recurrent, in partial remission F33.41 ; Hyperlipemia E78.5 ; Night sweats R61 ; Reactive airway disease, mild persistent, uncomplicated J45.30 and Essential hypertension I10 [place] [address] [address] Jan, Generalized anxiety disorder F41.1 and S evere episode of recurrent major depressive disorder, without psychotic features F33.2 [place] [address] [address] Dec, Anxiety F41.9 [place] [address] [address] Dec, Depression, major, recurrent, moderate F 33.1 ; Generalized anxiety disorder F41.1 and Insomnia G47.00 [place] [address] [address] November, Anxiety F41.9 [place] [address] [address] Sep, Depression, major, recurrent, in partial remission F33.41 [place] [address] [address] Sep, Reactive airway disease, mild persistent , uncomplicated J45.30 [place] [address] [address] Aug, Depression, major, recurrent, in partial remission F33.41 [place] [address] [address] Aug, Depression, major, recurrent, in partial remission F33.41 and Generalized anxiety disorder F41.1 [place] [address] [address] Jul, [place] [address] [address] May, Anxiety F41.[address] [address] May, Depression, major, recurrent, moderate F 33.1 and Generalized anxiety disorder F41.1 [place] [address] [address] May, [place] [address] [address] Apr, [place] [address] [address] 29 Mar, 2016 Degenerative disc disease, lumbar M51.36 and Left foot pain M79.672 [place] [address] [address] Mar, Dysthymia F34.1 and Generalized anxiety disorder F41.1 [place] [address] [address] Jan, Depression, major, recurrent, in partial remission F33.41 ; Generalized anxiety disorder F41.1 and Difficulty controlling anger R45.4 [place] [address] [address] Jan, [address] [address] Jan, [place] [address] [address] Jan, Dental examination Z01.20 [place] [address] [address] Jan, Back pain at L4-L5 level M54.5 [place] [address] [address] Dec, Low back pain M54.5 ; Other chronic pain G89.29 and Hyperlipemia E78.5 [place] [address] [address] Dec, Depression F32.9 ; Generalized anxiety d isorder F41.1 and Outbursts of anger R45.4 [place] [address] [address] Dec, [facility] [address] [facility] [id number] [place] [address] November, Pain of right great toe M79. 674 [place] [address] [address] November, [place] [address] [address] November, [place] [address] [address] Oct, [place] [address] [address] Sep, [place] [address] [address] Sep, [place] [address] [address] Sep, COPD (chronic obstructive pulmonary dise ase) J44.9 ; Hyperlipidemia E78.5 ; Anxiety F41.9 ; Depression F32.9 and Insomnia G47.00 [place] [address] [address] Sep, Depression F32.9 ; Anxiety F41.9 and Ins omnia G47.00 [place] [address] [address] Sep, [facility] [address] [address] Sep, [facility] [address] [address] Sep, COPD (chronic obstructive pulmonary dise ase) J44.9 [facility] [address] [address] Sep, Hyperlipemia E78.5 [place] [address] [address] Aug, COPD (chronic obstructive pulmonary dise ase) J44.9 ; Hyperlipidemia E78.5 ; Anxiety F41.9 ; Insomnia G47.00 ; Depression F32.9 and Heavy tobacco smoker >10 cigarettes per day F17.210 [place] [address] [address] Aug, [facility] [address] [address] Aug, [facility] [address] [address] Aug, [facility] [address] [address] Aug, Bronchitis J40 [place] [address] [address] Aug, [facility] [address] [address] Jul, [facility] [id number] [place] [id number] Jul, Dental examination Z01.20 and Dental car ies K02.9 [facility] [address] [address] Jun, [place] [address] [address] Jun, Encounter for immunization Z23 ; Screeni ng for tuberculosis Z11.1 and Physical exam Z00.00 [place] [address] [address] May, [place] [address] [address] May, Generalized anxiety disorder F41.1 and D epression, major, recurrent, in partial remission F33.41 [place] [address] [address] Apr, Hyperlipidemia E78.5 [place] [address] [address] Mar, Hyperlipemia 272.[address] [address] Feb, Routine general medical examination at [facility] V70.0 and Abrasion of hand, right, infected 914.1 [place] [address] [address] Feb, Routine general medical examination at [facility] V70.0 ; Pain in soft tissues of limb 729.5 and Pain in tooth 525.9 [place] [address] [address] Feb, Major depressive disorder, recurrent epi sode, mild 296.31 and Generalized anxiety disorder 300.02 [place] [address] [address] Feb, [place] [address] [address] Jan, [place] [address] [address] Dec, [place] [address] [address] Dec, [place] [address] [address] November, [address] [place] [address] November, Generalized anxiety disorder 300.02 and Major depressive disorder, recurrent episode, mild 296.31 [facility] [id number] [place] [address] 14 Oct, 2014 [facility] [id number] [place] [address] Oct, [facility] [id number] [place] [address] Sep, [facility] [id number] [place] [address] Sep, [facility] [id number] [place] [address] Sep, [facility] [id number] [place] [address] Sep, [facility] [id number] [place] [address] Aug, [facility] [id number] [place] [address] Aug, [facility] [id number] [place] [address] Aug, [facility] [id number] [place] [address] Aug, [facility] [id number] [place] [address] Aug, [facility] [address] [id number] [place] [address] Aug, [facility] [id number] [place] [address] Aug, [facility] [id number] [place] [address] Jul, [facility] [id number] [place] [address] Jul, [facility] [address] [facility] [id number] [place] [address] Jul, [facility] [address] [id number] [place] [address] Jul, [facility] [address] [id number] [place] [address] Jul, [facility] [address] [id number] [place] [address] Jul, [facility] [address] [id number] [place] [address] Jun, [facility] [address] [id number] [place] [address] Jun, [facility] [address] [id number] [place] [address] Feb, [facility] [address] [id number] [place] [address] Feb, [facility] [address] [id number] [place] [address] Jan, [facility] [address] [id number] [place] [address] Jan, [facility] [address] [id number] [place] [address] Jan, [facility] [address] [id number] [place] [address] Jan, [facility] [address] [id number] [place] [address] Oct, [facility] [address] [facility] [id number] [place] [address] Oct, [facility] [address] [id number] [place] [address] Oct, [facility] [address] [id number] [place] [address] Oct, [facility] [address] [id number] [place] [address] 14 Oct, 2013 [facility] [address] [id number] [place] [address] Oct, [facility] [address] [id number] [place] [address] Sep, [facility] [address] [id number] [place] [address] Sep, [facility] [address] [id number] [place] [address] Aug, [facility] [address] [id number] [place] [address] Aug, [facility] [address] [id number] [place] [address] Jul, [facility] [address] [id number] [place] [address] Jul, [facility] [address] [id number] [place] [address] Jul, [facility] [address] [id number] [place] [address] Jul, [facility] [address] [id number] [place] [address] Jul, [facility] [address] [id number] [place] [address] Apr, [facility] [address] [id number] [place] [address] Apr, [facility] [address] [id number] [place] [address] Mar, [facility] [address] [id number] [place] [address] Feb, [facility] [address] [id number] [place] [address] Jan, [facility] [address] [id number] [place] [address] Jan, [facility] [address] [id number] [place] [address] 05 Oct, 2012 [facility] [address] [id number] [place] [address] Sep, [facility] [address] [id number] [place] [address] Sep, [facility] [address] [id number] [place] [address] Sep, [facility] [address] [id number] [place] [address] Aug, [facility] [address] [id number] [place] [address] Aug, [facility] [address] [id number] [place] [address] May, [facility] [address] [id number] [place] [address] May, [facility] [address] [id number] [place] [address] May, [facility] [address] [id number] [place] [address] May, [facility] [address] [id number] [place] [address] May, [facility] [address] [id number] [place] [address] May, [facility] [address] [id number] [place] [address] May, [facility] [address] [id number] [place] [address] May, [facility] [id number] [place] [address] Apr, [facility] [address] [id number] [place] [address] Feb, [facility] [id number] [place] [address] Jan, [facility] [address] [id number] [place] [address] Jan, [facility] [address] [id number] [place] [address] Jan, [facility] [address] [id number] [place] [address] Jan, [facility] [address] [id number] [place] [address] Jan, [facility] [address] [id number] [place] [address] Jan, [facility] [address] [id number] [place] [address] Dec, [facility] [address] [id number] [place] [address] Dec, [facility] [address] [id number] [place] [address] Dec, [facility] [address] [id number] [place] [address] Dec, [facility] [address] [id number] [place] [address] Dec, [facility] [address] [id number] [place] [address] November, [facility] [address] [id number] [place] [address] November, [facility] [address] [id number] [place] [address] November, [facility] [address] [id number] [place] [address] November, [facility] [address] [id number] [place] [address] November, [facility] [address] [id number] [place] [address] Oct, [facility] [address] [id number] [place] [address] Oct, [facility] [address] [id number] [place] [address] Oct, [facility] [address] [id number] [place] [address] May, [facility] [address] [id number] [place] [address] May, [facility] [address] [id number] [place] [address] May, [facility] [address] [id number] [place] [address] May, [facility] [address] [id number] [place] [address] Aug, [facility] [address] [id number] [place] [address] Jul, [facility] [address] [id number] [place] [address] Jun, [facility] [address] [id number] [place] [address] Jun, [facility] [id number] [place] [address] May, [facility] [address] [id number] [place] [address] May, [facility] [address] [id number] [place] [address] Apr, [facility] [address] [id number] [place] [address] Apr, [facility] [address] [id number] [place] [address] Apr, [facility] [address] [id number] [place] [address] Apr, [facility] [address] [id number] [place] [address] 15 Mar, 2010 [facility] [address] [id number] [place] [address] 18 Nov, 2009 [facility] [address] [facility] [id number] [place] [address] Oct, [facility] [address] [facility] [id number] [place] [address] 16 Mar, 2009 IMMUNIZATIONS No Known Immunizations SOCIAL HISTORY Never Assessed REASON FOR VISIT PLAN OF CARE VITAL SIGNS Height 72 in 2013-10-13 Weight 189 lbs 2013-10-13 Temperature 97.7 degrees Fahrenheit 2013-10-13 Heart Rate 80 bpm 2013-10-13 Respiratory Rate 22 2013-10-13 Blood pressure systolic 140 mmHg 2013-10-13 Blood pressure diastolic 88 mmHg 2013-10-13 MEDICATIONS Unknown Medications RESULTS No Results PROCEDURES [...] repair 08/2018 Hospitalization History he went to [facility] for depression , anxiety three years ago
--- OUTSIDE RECORDS SUMMARY | 2019-10-12 11:14 | XMS REPORT ---
Author Author [employer]. 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 Name Role Phone JESSICA BLANC Unavailable Unavailable STEVEN EDWARDS Unavailable Unavailable SHANNON MAX Unavailable Unavailable AGUILAR, ARIELLA LELE Unavailable RODRÍGUEZ ESTRADA Unavailable AGUILAR, ARIELLA Unavailable Unavailable JUMA QUACH Unavailable HEIDE GRIGGS Unavailable Unavailable ANITRA LISA Unavailable Unavailable THAD SHANNON Unavailable Unavailable JIGNA PRITCHETT Unavailable Unavailable JESSICA Barrett Unavailable JESSICA Barrett Unavailable ANGLETON, NICOLA Unavailable AGUILAR, ARIELLA Unavailable ANGLETON, NICOLA Unavailable AGUILAR, ARIELLA Unavailable ANGLETON, NICOLA Unavailable ANGLETON, NICOLA Unavailable VERO KIRKLAND Unavailable AGUILAR, ARIELLA Unavailable AGUILAR, ARIELLA Unavailable AGUILAR, ARIELLA Unavailable ANGLETON, NICOLA Unavailable ANGLETON, NICOLA Unavailable ANGLETON, NICOLA Unavailable ANGLETON, NICOLA Unavailable AGUILAR, ARIELLA Unavailable ANGLETON, NICOLA Unavailable ANGLETON, NICOLA Unavailable ANGLETON, NIOCLA Unavailable ANGLETON, NICOLA Unavailable MADDIE BAUGHYLA Unavailable ARIELLA SHEIKH Unavailable Unavailable ROMADDIE VALDEZYLA Unavailable Migration, Doctor Unavailable Unavailable Migration, Doctor Unavailable Unavailable Migration, Doctor Unavailable Unavailable Migration, Doctor Unavailable Unavailable Migration, Doctor Unavailable Unavailable DUYEN CONRAD DO Unavailable Unavailable NATE SANCHEZ Unavailable Unavailable ARIELLA SHEIKH Unavailable Unavailable Migration, Doctor Unavailable Unavailable Migration, Doctor Unavailable Unavailable Migration, Doctor Unavailable Unavailable Migration, Doctor Unavailable Unavailable Migration, Doctor Unavailable Unavailable THAD PEÑA MD Unavailable Unavailable CONSUELO RIGGS Unavailable Migration, Doctor Unavailable Unavailable Migration, Doctor Unavailable Unavailable Migration, Doctor Unavailable Unavailable CLEMENT SHEIKHA Unavailable Migration, Doctor Unavailable Unavailable Migration, Doctor Unavailable Unavailable Migration, Doctor Unavailable Unavailable zzSTAGG, HEIDE Unavailable MARIANO THOMSON Unavailable RODRÍGUEZ ESTRADA Unavailable zzSTAGG, HEIDE Unavailable zzSTAGG, HEIDE Unavailable zzSTAGG, HEIDE Unavailable zzSTAGG, HEIDE Unavailable zzSTAGG, HEIDE Unavailable zzSTAGG, HEIDE Unavailable THAD PEÑA MD Unavailable Unavailable ANETTE, ISABEL J Unavailable Unavailable ARIELLA SHEIKH Unavailable Unavailable BLAKE ADAMS DO Unavailable Unavailable JUMA QUACH PCP DUYEN CONRAD DO Unavailable Unavailable Unavailable Unavailable Yu'JUWAN COTTON APRN Unavailable Unavailable zzSTAGG, HEIDE Unavailable zzSTAGG, HEIDE Unavailable Migration, Doctor Unavailable Unavailable zzSTAGG, HEIDE Unavailable Allergies Normalized Allergy Reported Date of Reaction(s) Care Provider Facility Allergy Type classification allergen Allergy Onset DA (14 Unclassified No Known Drug 01-23-2012 - no information NATE STEPHENS Not Available sources.) [place] ([address]) Medications Current Medications Medication Ingredient Drug Dose Dates Status Sig Sig Care Class(es) (Normalized) (Original) Provid er acetaminoph acetaminoph Opioid Active no Hydrocodone- no en 325 mg / en / Agonist information Acetaminophe name HYDROcodone HYDROcodone n 5-325 MG (no bitartrate Translation Orally every phone) 5 mg oral s: [ 6 hrs PRN 1 tablet (2 Hydrocodone tablet as sources.) -Acetaminop needed hen 5-325 Active MG] amitriptyli Amitriptyli Tricyclic 25 mg 09-29-19 Active no Amitriptylin no ne ne Antidepress 19 information e HCl 25 MG name hydrochlori Translation ant Orally at (no de 25 mg s: [ night for phone) oral tablet Amitriptyli sleep as (2 ne HCl 25 needed 1 sources.) MG] tablet Sep, 30 days Active citalopram Citalopram Serotonin 20 mg 07-12-20 Active take 1 Ce sara 20 MG no 20 mg oral Translation Reuptake 18 tablet by Orally Once name tablet (3 s: [ Celexa Inhibitor mouth once a day 1 (no sources.) 10 MG, daily, then tablet every phone) Citalopram take 1.5 day for one 20 MG Oral tablets by week then Tablet mouth once take 1.5 [Celexa], daily tablets Celexa 20 every day MG] 24h Jun, 30 days Active 10 mg 07-12-2018 Active no Celexa no name inform 10 MG (no ation Orally phone) Once a day 1 tablet 24h Jun, 30 day(s) Active Completed/Discontinued Medications Medication Ingredient Drug Dose Dates Status Sig Sig Care Class(es) (Normalized) (Original) Provid er no Salmeterol no 1 no take 1 Salmeterol no information Xinafoate/F information puff(s informat puff(s) by Xinafoate/Fl name (1 source.) luticasone ) ion inhalation uticasone (no twice daily Active 1 phone) RESPIRATORY (INHALATION) Twice A Day 1 PUFF Problems Active Problems Problem Normalized Date of Normalized Normalized Provider Fac ility Classification Problem(s) Problem Problem Problem Sta tus Onset/Resoluti Duration on Other lower Dyspnea, Episodic Active DUYEN CONRAD [facility] Vi a respiratory unspecified DO Beatriz disease (4 Hospital - sources.) [place] ([address]) Other Other long Episodic Active THAD PEÑA [facility] Vi a aftercare (8 term (current) MD [place] sources.) drug therapy Hospital - [place] (70663) Other injuries Unspecified Episodic Active ALEXANDRIA KANG Via and conditions injury of left DO Beatriz due to lower leg, Hospital - external initial [place] causes (2 encounter (72960) sources.) Past or Other Problems Problem Normalized Date of Normalized Normalized Provider Fac ility Classification Problem(s) Problem Problem Problem Sta tus Onset/Resoluti Duration on External cause Fall on same no information no information ALEXANDRIA KANG Via codes: Fall (1 level from DO Beatriz source.) slipping, Hospital - tripping and [place] stumbling (40205) without subsequent striking against object, initial encounter External cause Fall on same Episodic Completed BLAKE ADAMS VC Via codes: Fall (1 level from DO Beatriz source.) slipping, Hospital - tripping and [place] stumbling (13230) without subsequent striking against object, initial encounter External cause Parking lot as no information no information ALEXANDRIA MORGAN Via codes: Place the place of DO Beatriz of occurrence occurrence of Hospital - (1 source.) the external [place] cause (65951) External cause Parking lot as Episodic Completed BLAKE ADAMS VC Via codes: Place the place of DO Beatriz of occurrence occurrence of Hospital - (1 source.) the external [place] cause (81294) Procedures Procedure Normalized Procedure Procedure Result Performer Facility Date 10-06-2018 Comprehensive no information no name (no phone) [facility] metabolic panel [facility] (71793) 09-28-2018 Drug tst prsmv no information no name (no phone) [facility] [employer] instrmnt chem [facility] analyzer pr date (77642) 09-28-2018 [facility] visit, estab pt no information no name (no bibi ne) [facility] (80440) 07-12-2018 [facility] visit, estab pt no information no name (no bibi ne) [facility] (60005) 03-16-2018 [facility] visit, estab pt no information no name (no bibi ne) [facility] (96002) 12-15-2017 [facility] visit, estab pt no information no name (no bibi ne) [facility] (27122) 12-08-2017 [facility] visit, estab pt no information no name (no bibi ne) [facility] (38413) 09-28-2017 [facility] visit, estab pt no information no name (no bibi ne) [facility] (33574) 09-23-2017 [facility] visit, estab pt no information no name (no bibi ne) [facility] 09-23-2017 [place] ([id number]) - 09-23-2017 05-11-2017 [facility] visit, estab pt no information no name (no bibi ne) [facility] 05-11-2017 [place] (29648) - 05-11-2017 09-28-2018 [facility] visit, MH estab no information no name (no bibi ne) [facility] (18807) 10-06-2018 Lipid panel no information no name (no phone) Comm [facility] (21361) 09-28-2018 Psychotherapy no information no name (no phone) [facility] [employer] w/patient 60 minutes [facility] (86545) Immunizations Normalized Immunization Date Notes Care Provider Facili ty Immunization influenza, seasonal, 06-21-2019 no information no name [facility] injectable [facility] (02734) Results Test Name Value Interpretation Reference Range Date Time Fa cility (Normalized) (Normalized) (Medline Reference) No panel information on 2018-10-06 Albumin 4.7 g/dL (N) 3.4 - 5.4 g/dL [facility] [Mass/Vol] [facility] (76673) Albumin/Globulin 1.5 {ratio} (N) 1 - 2.5 {ratio} Comm [facility] [Mass ratio] [facility] (30605) ALP [Catalytic 148 U/L (H) 44 - 147 U/L [facility] activity/Vol] [facility] (03196) ALT [Catalytic 23 U/L (N) 4 - 40 U/L [facility] activity[facility]Vol[facility] (14297) AST [Catalytic 21 U/L (N) 10 - 34 U/L [facility] activity/Vol] [facility] (19855) Bilirubin 0.6 mg/dL (N) 0.1 - 1.2 mg/dL [facility] [Mass/Vol] [facility] (73735) Calcium 9.7 mg/dL (N) 8.5 - 10.2 mg/dL [facility] [Mass/Vol] [facility] (84009) Chloride 105 mmol/L (N) 95 - 106 mmol/L [facility] [Moles/Vol] [facility] (05085) Cholesterol 166 mg/dL (N) 180 - 200 mg/dL [facility] [Mass/Vol] [facility] (22635) Cholesterol in 35 mg/dL (L) [facility] HDL [Mass/Vol] [facility] (43817) Cholesterol in 104 mg/dL (H) 0 - 100 mg/dL [facility] LDL [Mass/Vol] [facility] (09868) Cholesterol non 131 mg/dL (H) [facility] HDL [Mass/Vol] [facility] (55088) Cholesterol.tota 4.7 {ratio} (N) [facility] l/Cholesterol in [facility] HDL [Mass ratio] [facility] (15833) CO2 [Moles/Vol] 25 mmol/L (N) 23 - 29 mmol/L [facility] (58535) Creatinine 0.99 mg/dL (N) [facility] h [Mass/Vol] [facility] (04428) GFR/1.73 sq M 100 (N) 90 - 120 [facility] predicted among mL/min/{1.73_m2} mL/min/{1.73_m2} [facility] blacks MDRD [facility] (S/P/Bld) [Vol (21669) rate/Area] GFR/1.73 sq 86 (N) 90 - 120 [facility] M.predicted MDRD mL/min/{1.73_m2} mL/min/{1.73_m2} [facility] (S/P/Bld) [Vol [facility] rate/Area] (71817) Globulin (S) 3.1 g/dL (N) 2 - 3.5 g/dL [facility] [Mass/Vol] [facility] (67554) Glucose 106 mg/dL (H) 60 - 125 mg/dL [facility] [Mass/Vol] [facility] (84213) Potassium 3.9 mmol/L (N) 3.7 - 5.2 mmol/L [facility] [Moles/Vol] [facility] (63828) Protein 7.8 g/dL (N) 6.4 - 8.3 g/dL [facility] [Mass/Vol] [facility] (16257) Sodium 138 mmol/L (N) 135 - 145 mmol/L [facility] [Moles/Vol] [facility] (01346) Triglyceride 154 mg/dL (H) 0 - 150 mg/dL [facility] [Mass/Vol] [facility] (45688) Urea nitrogen 9 mg/dL (N) 7 - 20 mg/dL [facility] [Mass/Vol] [facility] (71127) Urea NOT APPLICABLE (no code) [facility] nitrogen/Creatin [facility] [Mass ratio] [facility] (75750) No panel information on 2018-09-28 Marijuana 1191 (H) [facility] Metabolite [facility] (45696) 6 Acetylmorphine no information (no code) [facility] (08495) Alcohol no information (no code) [facility] Metabol[facility] (36834) Amphetamines Ql no information (no code) [facility] (U) [facility] (27271) Benzodiazepines no information (no code) [facility] Ql (U) [facility] (08386) Benzoylecgonine no information (no code) [facility] Ql (U) [facility] (28439) Buprenorphine no information (no code) [facility] (69610) COMMENT no information (no code) [facility] (66618) Creatinine (U) 155.9 mg/dL (no code) [facility] [Mass/Vol] [facility] (39081) MDMA no information (no code) [facility] (77405) medMATCH 6 CONSISTENT (no code) [facility] Acetylmorphine [facility] (56525) medMATCH Alcohol CONSISTENT (no code) [facility] Metab [facility] (21725) medMATCH CONSISTENT (no code) [facility] Amphetamines [facility] (85994) medMATCH INCONSISTENT (no code) [facility] Benzodiazepines [facility] (57418) medMATCH CONSISTENT (no code) [facility] Buprenorphine [facility] (37532) medMATCH Cocaine CONSISTENT (no code) [facility] Metab [facility] (17895) medMATCH INCONSISTENT (no code) [facility] Marijuana Metab [facility] (22329) medMATCH MDMA CONSISTENT (no code) [facility] (37728) medMATCH Opiates CONSISTENT (no code) [facility] (02583) medMATCH CONSISTENT (no code) [facility] Oxycodone [facility] (34362) Opiates Ql (U) no information (no code) [facility] (15384) Oxidants Ql (U) no information (no code) [facility] (23683) Oxycodone Ql (U) no information (no code) [facility] (70588) pH (U) 7.18 [pH] (no code) 4.6 - 8 [pH] [facility] (90008) Prescribed Drug Clonazepam (no code) [address] (55560) Tetrahydrocannab no information (A) [facility] inol Ql (U) [facility] (80465) No panel information on 2017-02-26 Albumin mass 4.4 g/dL (no code) 3.4 - 5.4 g/dL 02-26-2017 Not Available conc 10:230400 (24369) Albumin/Globulin 1.4 {ratio} (no code) 1 - 2.5 {ratio} 7 Not Available mass ratio 10:23-0400 (17171) ALP enzyme 144 U/L (H) 44 - 147 U/L 02-26-2017 Not Avai lable act/vol 10:0400 (01204) ALT enzyme 21 U/L (no code) 4 - 40 U/L 02-26-2017 Not Availa ble act/vol 10:05-0400 (93067) AST enzyme 16 U/L (no code) 10 - 34 U/L 02-26-2017 Not Avail able act/vol 10:05-0400 (96865) Basophils Auto 0.1 10*3/uL (no code) 0 - 0.3 10*3/uL 02-26-2017 Not Available #/vol (Bld) 08:27-0400 (77883) Basophils/100 1 % (no code) 0.5 - 1 % 02-26-2017 Not Avai lable WBC Auto (Bld) 08:27-0400 (23864) Bilirubin mass mg/dL (no code) 0.1 - 1.2 mg/dL 02-26-2017 N ot Available conc 10:050400 (23600) Calcium mass 9.9 mg/dL (no code) 8.5 - 10.2 mg/dL 02-26-2017 No t Available conc 10:05-0400 (47320) Chloride molar 101 mmol/L (no code) 95 - 106 mmol/L 02-26-2017 Not Available conc 08:54-0400 (64594) Cholesterol in 40 mg/dL (no code) 02-26-2017 Not Availab le HDL mass conc 10:05-0400 (51130) Cholesterol in 126 mg/dL (H) 0 - 100 mg/dL 02-26-2017 Not Available LDL mass conc 10:05-0400 (96371) Cholesterol in 60 mg/dL (H) 02-26-2017 Not Availab le VLDL mass conc 10:05-0400 (38238) Cholesterol mass 226 mg/dL (H) 180 - 200 mg/dL 02-26-2017 Not Available conc 10: (72827) CO2 molar conc 22 mmol/L (no code) 23 - 29 mmol/L 02-26-2017 No t Available 10: (19125) Creatinine mass 1.02 mg/dL (no code) 02-26-2017 Not Availa ble conc 10: (42599) CRP mass conc 3.0 mg/L (no code) 0 - 8 mg/L 02-26-2017 Not Lashno ilable 14:510 (97039) Eosinophils Auto 0.1 10*3/uL (no code) 0.05 - 0.5 02-26-2017 No t Available #/vol (Bld) 10*3/uL 08: (76411) Eosinophils/100 1 % (no code) 1 - 4 % 02-26-2017 Not Av ailable WBC Auto (Bld) 08: (54204) Erythrocyte 14.0 % (no code) 11.6 - 14.6 % 02-26-2017 Not Av ailable distribution 08: (69699) width Auto Ratio (RBC) GFR/1.73 sq M 97 (no code) 90 - 120 02-26-2017 Not Avai lable predicted among mL/min/{1.73_m2} mL/min/{1.73_m2} 10:040 (06775) blacks MDRD vol rate/area (S/P/Bld) GFR/1.73 sq M 84 (no code) 90 - 120 02-26-2017 Not Avai lable predicted among mL/min/{1.73_m2} mL/min/{1.73_m2} 10: (21400) non-blacks MDRD vol rate/area (S/P/Bld) Globulin 3.1 g/dL (no code) 2 - 3.5 g/dL 02-26-2017 Not Avail able Calculated mass 10: (46410) conc (S) Glucose mass 97 mg/dL (no code) 60 - 125 mg/dL 02-26-2017 Not Available conc 10: (04609) Hematocrit Auto 48.5 % (no code) 36.1 - 50.3 % 02-26-2017 No t Available Volume Fraction 08: (81654) (Bld) Hemoglobin mass 16.0 g/dL (no code) 12.1 - 17.2 g/dL 02-26-2017 Not Available conc (Bld) 08: (74835) Immature 0.0 10*3/uL (no code) 0 - 0.2 10*3/uL 02-26-2017 Not Available granulocytes 08: (41503) #/vol (Bld) Immature 0 % (no code) 0 - 0.5 % 02-26-2017 Not Availabl e granulocytes/100 08: (85053) WBC (Bld) Lymphocytes Auto 2.8 10*3/uL (no code) 0.9 - 2.9 02-26-2017 Not Available #/vol (Bld) 10*3/uL 08: (66313) Lymphocytes/100 29 % (no code) 20 - 40 % 02-26-2017 Not Av ailable WBC Auto (Bld) 08: (77550) MCH Auto Entitic 28.7 pg (no code) 27 - 31 pg 02-26-2017 Not Available mass (RBC) 08: (46009) MCHC Auto mass 33.0 g/dL (no code) 32 - 36 g/dL 02-26-2017 Not Available conc (RBC) 08: (80187) MCV Auto Entitic 87 fL (no code) 80 - 100 fL 02-26-2017 Not Available volume (RBC) 08: (53644) Monocytes Auto 1.0 10*3/uL (H) 0.3 - 0.9 02-26-2017 Not A vailable #/vol (Bld) 10*3/uL 08: (29416) Monocytes/100 11 % (no code) 2 - 8 % 02-26-2017 Not Avai lable WBC Auto (Bld) 08: (59588) Neutrophils Auto 5.5 10*3/uL (no code) 1.7 - 7 10*3/uL 7 Not Available #/vol (Bld) 08: (39099) Neutrophils/100 58 % (no code) 40 - 60 % 02-26-2017 Not Av ailable WBC Auto (Bld) 08:27-0400 (97111) Platelets Auto 259 10*3/uL (no code) 150 - 450 02-26-2017 Not A vailable #/vol (Bld) 10*3/uL 08:27-0400 (16094) Potassium molar 4.8 mmol/L (no code) 3.7 - 5.2 mmol/L 02-26-2017 Not Available conc 08:57-0400 (75979) Protein mass 7.5 g/dL (no code) 6.4 - 8.3 g/dL 02-26-2017 Not Available conc 10:05-0400 (49081) RBC Auto #/vol 5.57 10*6/uL (no code) 4.2 - 6.1 02-26-2017 Not Available (Bld) 10*6/uL 08:0400 (85776) Sodium molar 141 mmol/L (no code) 135 - 145 mmol/L 02-26-2017 N ot Available conc 08:54-0400 (58015) Thyrotropin Qn 1.130 (no code) 02-26-2017 Not Availab le 09:41-0400 (18570) Triglyceride 299 mg/dL (H) 0 - 150 mg/dL 02-26-2017 Not A vailable mass conc 10:05-0400 (45302) Urea nitrogen 13 mg/dL (no code) 7 - 20 mg/dL 02-26-2017 Not A vailable mass conc 10:05-0400 (13113) Urea 13 mg/mg (no code) 6 - 22 mg/mg 02-26-2017 Not Avail able nitrogen/Creatin 10:05-0400 (54487) ine mass ratio WBC Auto #/vol 9.5 10*3/uL (no code) 3.5 - 10.5 02-26-2017 Not Available (Bld) 10*3/uL 08:27-0400 (01499) Vital Signs Vital Sign Value Interpretation Reference Date Time Care Prov ider Facility (Normalized) (Normalized) Range BMI (Body Mass 24.03 kg/m2 (no code) 15 - 25 kg/m2 10-06-2018 B [facility] Community Index) 12:00-0400 61643 [facility] (16187) BMI (Body Mass 24.84 kg/m2 (no code) 15 - 25 kg/m2 09-28-2018 Adarsh BAGUH Community Index) 10:00-0500 67077 [facility] (45651) BMI (Body Mass 24.31 kg/m2 (no code) 15 - 25 kg/m2 07-12-2018 K SUKHDEV BAUGH Community Index) 16:20-[address] [place] [address] (97588) BMI (Body Mass 23.9 kg/m2 (no code) 15 - 25 kg/m2 03-16-2018 KA CAMERON BURGOS Community Index) 10:40-[address] [place] [address] (31354) BMI (Body Mass 24.56 kg/m2 (no code) 15 - 25 kg/m2 12-15-2017 Adarsh BURGOS Community Index) 10:00-[address] [place] [address] (56789) BMI (Body Mass 24.45 kg/m2 (no code) 15 - 25 kg/m2 12-08-2017 K SUKHDEV BURGOS Community Index) 11:40-[address] [place] [address] (49236) BMI (Body Mass 25.32 kg/m2 (no code) 15 - 25 kg/m2 09-28-2017 Lynnette SHEIKH Community Index) 15:20-[address] [place] [address] (18813) BMI (Body Mass 25.45 kg/m2 (no code) 15 - 25 kg/m2 09-23-2017 Adarsh BURGOS Community Index) 13:40-[address] [place] [address] (28391) BMI (Body Mass 28.86 kg/m2 (no code) 15 - 25 kg/m2 05-11-2017 K SUKHDEV BURGOS Community Index) 11:00-[address] [place] [address] (32559) Body 98.2 [degF] (no code) 97.8 - 99.0 10-06-2018 ARIELLA GONSALES Community Temperature [degF] 12:000400 [address] [place] [address] (61644) Body 98.4 [degF] (no code) 97.8 - 99.0 09-28-2017 ARIELLA KATIE GONSALES [facility] Temperature [degF] 15:20-0500 84076 [facility] (66025) Body weight 89.54 kg (no code) kg 10-06-2018 ARIELLA SHAYLEE [facility] 12:00-0400 37723 [facility] (34664) Body weight 92.58 kg (no code) kg 09-28-2018 [facility] 10:00-0500 29217 [facility] (03474) Height 193.04 cm (no code) cm 10-06-2018 ARIELLAJEANNIE SHEIKH [facility] 12:00-0400 73673 [facility] (35064) Height 193.04 cm (no code) cm 09-28-2018 [facility] 10:00-0500 19727 [facility] (89823) Height 193.04 cm (no code) cm 07-12-2018 [facility] 16:20-0500 97304 [facility] (85972) Height 193.04 cm (no code) cm 03-16-2018 [facility] 10:40-0400 38674 [facility] (05796) Height 193.04 cm (no code) cm 12-15-2017 [facility] 10:00-0400 36760 [facility] (23169) Height 193.04 cm (no code) cm 12-08-2017 [facility] 11:40-0400 74866 [facility] (88881) Height 193.04 cm (no code) cm 09-28-2017 ARIELLA AGUILAR [facility] 15:20-0500 24787 [facility] (19560) Height 193.04 cm (no code) cm 09-23-2017 [facility] 13:40-0500 65817 [facility] (41871) Height 182.88 cm (no code) cm 05-11-2017 [facility] 11:00-0400 06199 [facility] (68136) Weight 90.58 kg (no code) kg 07-12-2018 NICOLA [facility] 16:20-[id number] [place] [address] (72292) Weight 89.09 kg (no code) kg 03-16-2018 [facility] 10:40-0400 94985 [facility] (89908) Weight 91.54 kg (no code) kg 12-15-2017 [facility] 10:00-0400 02355 [facility] (27227) Weight 91.13 kg (no code) kg 12-08-2017 [facility] 11:40-[id number] [place] [address] (69628) Weight 94.35 kg (no code) kg 09-28-2017 [facility] 15:20-[id number] [place] [address] (23106) Weight 94.85 kg (no code) kg 09-23-2017 [facility] 13:40-[id number] [place] [address] (87080) Weight 96.53 kg (no code) kg 05-11-2017 [facility] 11:00-[id number] [place] [address] (53083) Interventions No Information Plan of Treatment Normalized Care Care Detail Care Activity Date Care Provider F acility Activity (BH-INTAKE) [facility] 08-03-2018 NICOLA BAUHG 19971 Juanita [facility] (54978) ([id number]) [facility] 08-19-2018 NICOLA BAUGH 59719 Juanita [facility] F/U 20 [facility] (73132) Patient Education Knee Pain (DC) no information JUMA QUACH [phone] [facility] (34961) Patient referral no information no information JUMA QUACH [address] [facility] (22235) Goals Patient Goal Desired Goal no information no information Social History Normalized Code Original Code Date Value Tobacco smoking status Tobacco smoking status no information Smokes tobacco daily NHIS NHIS (finding) no information no information 04-24-2019 Denies Use no information no information 04-24-2019 No no information no information 04-24-2019 Denies no information no information 04-24-2019 Current Everyda y Smoker no information no information 04-24-2019 Cigarettes Sex Assigned At Sex Assigned At no information M duarte Functional Status The data below is from unstructured sourcesNo functional status results.No functional status results.No functional status results.No Functional Status information availableNo Functional Status information available Mental Status The data below is from unstructured sourcesNo Mental Status Information Available Encounters Encounter Normalized Encounter Encounter Diagnosis Care Provi otoniel Organization Date Type 05-18-2018 (PSY-FU-20) Psychiatry no information NICOLA FLOYD N (no [facility] F/U 20 min phone) (no phone) 04-24-2019 Emergency department no information (no phone) [facility] - patient visit Hospital (no phone) 04-24-2019 04-24-2019 Emergency department no information no name (no bibi ne) no organization name - patient visit (no phone) 04-24-2019 04-24-2019 Emergency department no information no name (no bibi ne) no organization name patient visit (no phone) 12-15-2017 Patient encounter no information no name (no phone) no organization name (no phone) 12-08-2017 Patient encounter no information no name (no phone) no organization name (no phone) 09-28-2017 Patient encounter no information no name (no phone) no organization name (no phone) 09-23-2017 Patient encounter no information no name (no phone) no organization name (no phone) 09-02-2017 Patient encounter no information no name (no phone) no organization name (no phone) 08-12-2017 Patient encounter no information no name (no phone) no organization name (no phone) 07-13-2017 Patient encounter no information no name (no phone) no organization name (no phone) 02-04-2017 Patient encounter no information no name (no phone) no organization name (no phone) 09-12-2019 Patient encounter no information JUWAN BANDA APRN (no [facility] procedure phone) (no phone) [facility] (no phone) 08-08-2019 Patient encounter no information (no phone) [facility] (no phone) 08-03-2019 Patient encounter no information no name (no phone) no organization name procedure (no phone) 07-11-2019 Patient encounter no information no name (no phone) no organization name procedure (no phone) 07-04-2019 Patient encounter no information no name (no phone) no organization name procedure (no phone) 06-21-2019 Patient encounter no information no name (no phone) no organization name procedure (no phone) 06-09-2019 Patient encounter no information no name (no phone) no organization name procedure (no phone) 04-24-2019 Patient encounter no information no name (no phone) no organization name procedure (no phone) 04-24-2019 Patient encounter no information no name (no phone) no organization name procedure (no phone) 01-25-2019 Patient encounter no information no name (no phone) no organization name procedure (no phone) 12-31-2018 Patient encounter no information no name (no phone) no organization name procedure (no phone) 11-29-2018 Patient encounter no information no name (no phone) no organization name procedure (no phone) 11-22-2018 Patient encounter no information no name (no phone) no organization name procedure (no phone) 10-26-2018 Patient encounter no information no name (no phone) no organization name procedure (no phone) 10-06-2018 Patient encounter no information no name (no phone) no organization name procedure (no phone) 09-28-2018 Patient encounter no information no name (no phone) no organization name procedure (no phone) 08-31-2018 Patient encounter no information no name (no phone) no organization name procedure (no phone) 08-19-2018 Patient encounter no information no name (no phone) no organization name procedure (no phone) 07-12-2018 Patient encounter no information no name (no phone) no organization name procedure (no phone) 08-25-2016 Patient encounter no information no name (no phone) no organization name - procedure (no phone) 08-25-2016 02-22-2016 Patient encounter no information no name (no phone) no organization name - procedure (no phone) 02-26-2016 02-22-2016 Patient encounter no information no name (no phone) no organization name - procedure (no phone) 02-26-2016 11-05-2015 Patient encounter no information no name (no phone) no organization name procedure (no phone) 11-05-2015 Patient encounter no information no name (no phone) no organization name procedure (no phone) 01-23-2012 Patient encounter no information no name (no phone) no organization name procedure (no phone) Medical Equipment The data below is from unstructured sourcesNo Medical Equipment Information available Payers Normalized Payer Value Unknown no information ([id number]) History general Narrative - Reported Note Type Note Facility History general Narrative - Reported Type Medical major depression History Medical anxiety History Medical psychosis History Medical mood disorder History Medical treadmill stress test 2- WNL History Medical neuropathy History 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 History Surgical hernia repair 04/1964 History Surgical colonoscopy 01/2017 History Surgical Facial surgery 04/2017 History Surgical Left knee scope 10/2017 History Surgical colonoscopy WNL except for hemorrhoids 01/2018 History Surgical Left knee meniscus and ACL repair 06/27 018 History Surgical Left knee ACL repair 08/2018 History Hospitaliz he went to [facility] for depression, a nxiety three ation years ago History [facility] ([id number]) Summary Purpose eClinicalWorks SubmissioneClinicalWorks SubmissioneClinicalWorks SubmissioneClinicalWorks SubmissioneClinicalWorks SubmissioneClinicalWorks SubmissioneClinicalWorks SubmissioneClinicalWorks SubmissioneClinicalWorks Submission Advance Directives Directive Response Recor ded Date/Time Advance Directives No 2:25pm Health Care Power of Brim Edge Trimmer No 01/23/12 2:25pm Organ Donor No 01/23/12 2:25pm Directive Response Recor ded Date/Time Advance Directives No 11:45am Health Care Power of Brim Edge Trimmer No 08/25/16 11:45am Organ Donor No 08/25/16 11:45am Resuscitation Status Full Code 08/25/16 11:45am Advance Directive Response Recorded Date/Time Advance Directives No Se ptember 2018 1:23pm Health Care Power of Brim Edge Trimmer No April 24, 2019 1:23pm Organ Donor No April 24, 2019 1:23pm Resuscitation Status Full Code April 24, 2019 1:23pm Discharge Instructions No hospital discharge instructions.No hospital discharge instructions. Chief Complaint and Reason for Visit Chief Complaint Lower Extremity Reason for Visit [id number] Assessments No Assessments Information Available Additional Source Comments This clinical document has been generated using [employer] software that has been certified by the Office of the National Coordinator for Health Information Technology (ONC 15.99.04.3023.Diam.[id number]) and the National Committee for [employer] Brake Lining [employer]isher Helper (NCQA, as an eMeasure certified technology). FOR RECORDS PERTAINING TO PATIENTS WHO ARE OR HAVE BEEN ENROLLED IN A CHEMICAL D EPENDENCY/SUBSTANCE ABUSE PROGRAM, SOME INFORMATION MAY BE OMITTED. This clinica l summary was aggregated from multiple sources. Caution should be exercised in using it in the provision of clinical care. This summary normalizes information from multiple sources, and as a consequence, information in this document may ma terially change the coding, format and clinical context of patient data. In lalo tion, data may be omitted in some cases. CLINICAL DECISIONS SHOULD BE BASED ON T PRIMARY CLINICAL RECORDS. [employer] provides no warranty or guara ntee of the accuracy or completeness of information in this document.The followi ng information is based on time limited clinical information UNRECOGNIZED CONTENT PROVIDED BELOW FOR UNRECOGNIZED SECTION MEDICAL (GENERAL) HISTORY Type Description Date Medical History major depression Medical History anxiety Medical History psychosis Medical History mood disorder Medical History treadmill stress connor t 12/2011- WNL Medical History neuropathy Surgical History amputation 3rd & 4t h digits left foot 02/2010 Surgical History hernia repair 04/1964 Surgical History colonoscopy 01/2017 Hospitalization History he went to [facility] for depression, anxiety three years ago Type Description Date Medical History major depression Medical History anxiety Medical History psychosis Medical History mood disorder Medical History treadmill stress connor t 12/2011- WNL Medical History neuropathy Surgical History amputation 3rd & 4t h digits left foot 02/2010 Surgical History hernia repair 04/1964 Surgical History colonoscopy 01/2017 Surgical History Facial surgery 04/2017 Hospitalization History he went to [facility] for depression, anxiety three years ago Type Description Date Medical History major depression Medical History anxiety Medical History psychosis Medical History mood disorder Medical History treadmill stress connor t 12/2011- WNL Medical History neuropathy Surgical History amputation 3rd & 4t h digits left foot 02/2010 Surgical History hernia repair 04/1964 Surgical History colonoscopy 01/2017 Surgical History Facial surgery 04/2017 Surgical History Left knee scope 10/2017 Hospitalization History he went to [facility] for depression, anxiety three years ago Type Description Date Medical History major depression Medical History anxiety Medical History psychosis Medical History mood disorder Medical History treadmill stress connor t 12/2011- WNL Medical History neuropathy Surgical History amputation 3rd & 4t h digits left foot 02/2010 Surgical History hernia repair 04/1964 Surgical History colonoscopy 01/2017 Surgical History Facial surgery 04/2017 Surgical History Left knee scope 10/2017 Surgical History colonoscopy WNL exc ept for hemorrhoids 01/2018 Surgical History Left knee meniscus and ACL repair 06/2018 Surgical History Left knee ACL repair 08/2018 Hospitalization History he went to [facility] for depression, anxiety three years ago UNRECOGNIZED CONTENT PROVIDED BELOW FOR UNRECOGNIZED SECTION REASON FOR VISIT f/u. [facility] f/u- libby ponce, contract and [facility] f/u JJournotRNEMR-MigEM [id number]/jHIR-[id number] gHypertension Pt in for follow up MARIELA Thorpe
--- OUTSIDE RECORDS SUMMARY | 2019-10-12 11:14 | XMS REPORT ---
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 Name Role Phone Migration, Doctor Unavailable Unavailable PROBLEMS Type Condition ICD9-CM Code [id number] Code Onset Dates Condition S tatus SNOMED Code Problem Closed nondisplaced fracture of distal phalanx o f left ring finger S62.665A Jul, Active 50763001 Problem Insomnia G47.00 Active 995798236 Problem Mixed hyperlipidemia E78.2 Apr, Active 985914434 Problem Anxiety F41.9 Active 10361672 Problem Depression F32.9 Active 50996090 Problem Tremor, essential G25.0 Apr, Active 522809329 Problem Tobacco use Z72.0 Jul, Active 27233 3000 Problem Severe episode of recurrent major depressive disorder, without psychotic features F33.2 Active 72053764 Problem Generalized anxiety disorder F41.1 A ctive 28520022 Problem Depression, major, recurrent, in partial remission F33.41 Active 57441512 Problem COPD (chronic obstructive pulmonary disease) J44.9 Active 33682995 Problem Reactive airway disease, mild persistent, uncomplicated J45.30 Active 810792830 Problem Degenerative disc disease, lumbar M51.36 Active 46663631 Problem Pulmonary emphysema, unspecified emphysema type J4 3.9 Active 14462903 Problem Hyperlipemia E78.5 Active 2644083 4 Problem Essential hypertension I10 Active 09049196 Problem Mild episode of recurrent major depressive disorder F33.0 Active 039153287 Problem Edentulous K00.0 Active 280753003 ALLERGIES No Information ENCOUNTERS Encounter Location Date Diagnosis [facility] [address] [id number] [place] [address] 08 Dec, 2019 [facility] [address] [id number] [place] [address] Sep, [facility] [address] [id number] [place] [address] Sep, [place] [id number] [place] [address] Sep, [address] [place] [address] 17 Aug, 2019 Acute pain of left knee M25. 562 ; Swelling of knee M25.469 and Warmth of joint R29.898 [place] [address] [address] 11 Aug, 2019 [place] [address] [address] Aug, Hyperlipemia E78.5 [place] [address] [address] Jul, [place] [address] [address] Jul, Testicle trouble N50.9 ; Left knee pain, unspecified chronicity M25.562 ; Sore throat J02.9 and Hyperlipemia E78.5 [place] [address] [address] Jul, Generalized anxiety disorder F41.1 and M ild episode of recurrent major depressive disorder F33.0 [place] [address] [address] Jun, [place] [address] [address] Jun, [place] [address] [address] Jun, Testicle trouble N50.9 ; Generalized anx iety disorder F41.1 ; Hyperlipemia E78.5 ; COPD (chronic obstructive pulmonary disease) J44.9 and Tobacco abuse Z72.0 [place] [address] [address] Jun, Testicle trouble N50.9 ; Generalized anx iety disorder F41.1 ; Hyperlipemia E78.5 ; COPD (chronic obstructive pulmonary disease) J44.9 and Tobacco abuse Z72.0 [facility] [address] [id number] [place] [address] Jun, Generalized anxiety disorder F41.1 ; Mil d episode of recurrent major depressive disorder F33.0 and Mild episode of recurrent major depressive disorder F33.0 [facility] [place] [address] [place] [address] May, Encounter for immunization Z 23 [facility] [address] [address] May, Mild episode of recurrent major depressi ve disorder F33.0 and Generalized anxiety disorder F41.1 [place] [id number] [place] [address] Apr, Generalized anxiety disorder F41.1 [place] [address] [address] Apr, Generalized anxiety disorder F41.1 and M ild episode of recurrent major depressive disorder F33.0 [facility] [id number] [place] [address] Mar, [facility] [address] [place] [address] Mar, [facility] [address] [id number] [place] [address] Jan, Generalized anxiety disorder F41.1 and M ild episode of recurrent major depressive disorder F33.0 [facility] [id number] [place] [address] Jan, Mild episode of recurrent major depressi ve disorder F33.0 ; Generalized anxiety disorder F41.1 and Mild episode of recurrent major depressive disorder F33.0 [facility] [id number] [place] [address] Dec, [facility] [id number] [place] [address] Dec, Generalized anxiety disorder F41.1 and M ild episode of recurrent major depressive disorder F33.0 [facility] [id number] [place] [address] November, Mild episode of recurrent major depressi ve disorder F33.0 and Generalized anxiety disorder F41.[address] [place] [address] November, [facility] [address] [address] Oct, Essential hypertension I10 [facility] [address] [address] Oct, Generalized anxiety disorder F41.1 and M ild episode of recurrent major depressive disorder F33.0 [place] [address] [address] Oct, Encounter for Medicare annual wellness e xam Z00.00 ; COPD (chronic obstructive pulmonary disease) J44.9 ; Mild episode of recurrent major depressive disorder F33.0 ; Mixed hyperlipidemia E78.2 ; Degenerative disc disease, lumbar M51.36 and Left foot pain M79.672 [place] [address] [address] Oct, Generalized anxiety disorder F41.1 and M ild episode of recurrent major depressive disorder F33.0 [facility] [address] [address] Oct, Generalized anxiety disorder F41.1 and M ild episode of recurrent major depressive disorder F33.0 [facility] [address] [address] Oct, Generalized anxiety disorder F41.1 [facility] [address] [address] Sep, Hyperlipemia E78.5 and Depression F32.9 [facility] [address] [address] Sep, [facility] [address] [address] Sep, Generalized anxiety disorder F41.1 and M ild episode of recurrent major depressive disorder F33.0 [facility] [id number] [place] [address] Sep, Generalized anxiety disorder F41.1 and M ild episode of recurrent major depressive disorder F33.0 [facility] [address] [facility] [place] [address] Aug, Mild episode of recurrent major depressi ve disorder F33.0 and Generalized anxiety disorder F41.1 [facility] [address] [facility] [place] [address] Jul, Generalized anxiety disorder F41.1 and M ild episode of recurrent major depressive disorder F33.0 [facility] [id number] [place] [address] Jul, Mild episode of recurrent major depressi ve disorder F33.0 and Generalized anxiety disorder F41.1 [facility] [id number] [place] [address] Jul, [facility] [address] [id number] [place] [address] Jun, [facility] [id number] [place] [address] Jun, [facility] [id number] [place] [address] Jun, Generalized anxiety disorder F41.1 and M ild episode of recurrent major depressive disorder F33.0 [facility] [id number] [place] [address] Jun, [facility] [id number] [place] [address] Feb, Mild episode of recurrent major depressi ve disorder F33.0 and Generalized anxiety disorder F41.1 [facility] [id number] [place] [address] November, Mild episode of recurrent major depressi ve disorder F33.0 and Generalized anxiety disorder F41.1 [place] [address] [address] November, [place] [address] [address] November, Mild episode of recurrent major depressi ve disorder F33.0 and Generalized anxiety disorder F41.1 [place] [address] [address] November, Mild episode of recurrent major depressi ve disorder F33.0 [place] [address] [address] Sep, Mild episode of recurrent major depressi ve disorder F33.0 [place] [address] [address] Sep, Acute pain of left knee M25.562 [place] [address] [address] 28 Aug, 2017 Mild episode of recurrent major depressi ve disorder F33.0 and Generalized anxiety disorder F41.1 [place] [address] [address] 15 Aug, 2017 Hyperlipemia E78.5 [place] [address] [address] 07 Aug, 2017 Acute pain of left knee M25.562 [place] [address] [address] 05 Aug, 2017 [place] [address] [address] Jul, COPD (chronic obstructive pulmonary dise ase) J44.9 and Edentulous K00.0 [place] [address] [address] Jul, Dental examination Z01.20 [place] [address] [address] Jul, Severe episode of recurrent major depres sive disorder, without psychotic features F33.2 [facility] [address] [address] Jun, Severe episode of recurrent major depres sive disorder, without psychotic features F33.2 and Generalized anxiety disorder F41.1 [facility] [address] [address] Jun, Callus of foot L84 ; Hyperlipemia E78.5 and Pulmonary emphysema, unspecified emphysema type J43.9 [facility] [address] [address] May, Generalized anxiety disorder F41.1 and M ild episode of recurrent major depressive disorder F33.0 [place] [address] [address] 07 May, 2017 Severe episode of recurrent major depres sive disorder, without psychotic features F33.2 [place] [address] [address] Apr, [place] [address] [address] Apr, Severe episode of recurrent major depres sive disorder, without psychotic features F33.2 and Generalized anxiety disorder F41.1 [place] [address] [address] Mar, Generalized anxiety disorder F41.1 [place] [address] [address] Feb, Hyperlipemia E78.5 [place] [address] [address] Feb, Generalized anxiety disorder F41.1 and S evere episode of recurrent major depressive disorder, without psychotic features F33.2 [place] [address] [address] Feb, Hyperlipemia E78.5 [facility] [address] [address] Feb, Generalized anxiety disorder F41.1 [place] [address] [address] Feb, Depression, major, recurrent, in partial remission F33.41 ; Hyperlipemia E78.5 ; Night sweats R61 ; Reactive airway disease, mild persistent, uncomplicated J45.30 and Essential hypertension I10 [place] [address] [address] Jan, Generalized anxiety disorder F41.1 and S evere episode of recurrent major depressive disorder, without psychotic features F33.2 [place] [address] [address] Dec, Anxiety F41.9 [place] [address] [address] Dec, Depression, major, recurrent, moderate F 33.1 ; Generalized anxiety disorder F41.1 and Insomnia G47.00 [place] [address] [address] November, Anxiety F41.9 [place] [address] [address] Sep, Depression, major, recurrent, in partial remission F33.41 [place] [address] [address] Sep, Reactive airway disease, mild persistent , uncomplicated J45.30 [place] [address] [address] Aug, Depression, major, recurrent, in partial remission F33.41 [place] [address] [address] Aug, Depression, major, recurrent, in partial remission F33.41 and Generalized anxiety disorder F41.1 [place] [address] [address] Jul, [place] [address] [address] May, Anxiety F41.9 [place] [address] [address] May, Depression, major, recurrent, moderate F 33.1 and Generalized anxiety disorder F41.1 [place] [address] [address] May, [place] [address] [address] Apr, [place] [address] [address] 29 Mar, 2016 Degenerative disc disease, lumbar M51.36 and Left foot pain M79.672 [place] [address] [address] Mar, Dysthymia F34.1 and Generalized anxiety disorder F41.1 [place] [address] [address] Jan, Depression, major, recurrent, in partial remission F33.41 ; Generalized anxiety disorder F41.1 and Difficulty controlling anger R45.4 [place] [address] [address] Jan, [place] [address] [address] Jan, [place] [address] [address] Jan, Dental examination Z01.20 [place] [address] [address] Jan, Back pain at L4-L5 level M54.5 [place] [address] [address] Dec, Low back pain M54.5 ; Other chronic pain G89.29 and Hyperlipemia E78.5 [place] [address] [address] Dec, Depression F32.9 ; Generalized anxiety d isorder F41.1 and Outbursts of anger R45.4 [facility] [id number] [place] [address] Dec, [facility] [address] [facility] [id number] [place] [address] November, Pain of right great toe M79. 674 [facility] [address] [address] November, [facility] [address] [address] November, [facility] [address] [address] Oct, [facility] [address] [address] Sep, [facility] [address] [address] Sep, [facility] [address] [address] Sep, COPD (chronic obstructive pulmonary dise ase) J44.9 ; Hyperlipidemia E78.5 ; Anxiety F41.9 ; Depression F32.9 and Insomnia G47.00 [facility] [address] [address] Sep, Depression F32.9 ; Anxiety F41.9 and Ins omnia G47.00 [facility] [address] [address] Sep, [facility] [address] [address] Sep, [facility] [address] [address] Sep, COPD (chronic obstructive pulmonary dise ase) J44.9 [facility] [address] [address] Sep, Hyperlipemia E78.5 [facility] [address] [address] Aug, COPD (chronic obstructive pulmonary dise ase) J44.9 ; Hyperlipidemia E78.5 ; Anxiety F41.9 ; Insomnia G47.00 ; Depression F32.9 and Heavy tobacco smoker >10 cigarettes per day F17.210 [facility] [address] [address] Aug, [facility] [address] [address] Aug, [facility] [address] [address] Aug, [place] [address] [address] Aug, Bronchitis J40 [place] [address] [address] Aug, [place] [address] [address] Jul, [facility] [address] [id number] Jul, Dental examination Z01.20 and Dental car ies K02.[address] [address] Jun, [place] [address] [address] Jun, Encounter for immunization Z23 ; Screeni ng for tuberculosis Z11.1 and Physical exam Z00.00 [place] [address] [address] May, [address] [address] May, Generalized anxiety disorder F41.1 and D epression, major, recurrent, in partial remission F33.[address] [address] Apr, Hyperlipidemia E78.5 [facility] [id number] [place] [address] Mar, Hyperlipemia 272.4 [facility] [address] [address] Feb, Routine general medical examination at [facility] V70.0 and Abrasion of hand, right, infected 914.1 [facility] [address] [address] Feb, Routine general medical examination at [facility] V70.0 ; Pain in soft tissues of limb 729.5 and Pain in tooth 525.9 [place] [address] [address] Feb, Major depressive disorder, recurrent epi sode, mild 296.31 and Generalized anxiety disorder 300.02 [place] [address] [address] Feb, [facility] [address] [address] Jan, [facility] [address] [address] Dec, [facility] [address] [address] Dec, [facility] [address] [address] November, [facility] [address] [address] November, Generalized anxiety disorder 300.02 and Major depressive disorder, recurrent episode, mild 296.31 [facility] [address] [address] Oct, [facility] [address] [address] Oct, [facility] [address] [address] Sep, [facility] [address] [id number] [place] [address] Sep, [facility] [place] [facility] [address] [id number] [place] [address] Sep, [facility] [place] [facility] [address] [id number] [place] [address] Sep, [facility] [place] [facility] [address] [id number] [place] [address] Aug, [facility] [place] [facility] [address] [id number] [place] [address] Aug, [facility] [place] [facility] [address] [id number] [place] [address] Aug, [facility] [place] [facility] [address] [id number] [place] [address] Aug, [facility] [place] [facility] [address] [id number] [place] [address] Aug, [facility] [place] [facility] [address] [id number] [place] [address] Aug, [facility] [place] [facility] [address] [id number] [place] [address] Aug, [facility] [place] [facility] [address] [id number] [place] [address] Jul, [facility] [place] [facility] [address] [id number] [place] [address] Jul, [facility] [place] [facility] [address] [id number] [place] [address] Jul, [facility] [place] [facility] [address] [id number] [place] [address] Jul, [facility] [place] [facility] [address] [id number] [place] [address] Jul, [facility] [place] [facility] [address] [id number] [place] [address] Jul, [facility] [place] [facility] [address] [id number] [place] [address] Jun, [facility] [place] [facility] [address] [facility] [id number] [place] [address] Jun, [facility] [place] [facility] [address] [id number] [place] [address] Feb, [facility] [place] [facility] [address] [id number] [place] [address] Feb, [facility] [place] [facility] [address] [id number] [place] [address] Jan, [facility] [place] [facility] [address] [facility] [facility] [id number] [place] [address] Jan, [facility] [place] [facility] [address] [id number] [place] [address] Jan, [facility] [place] [facility] [address] [id number] [place] [address] Jan, [facility] [place] [facility] [address] [id number] [place] [address] Oct, [facility] [place] [facility] [address] [id number] [place] [address] Oct, [facility] [place] [facility] [address] [id number] [place] [address] Oct, [facility] [place] [facility] [address] [id number] [place] [address] Oct, [facility] [place] [facility] [address] [id number] [place] [address] Oct, [facility] [place] [facility] [address] [id number] [place] [address] Oct, [facility] [place] [facility] [address] [id number] [place] [address] Sep, [facility] [place] [facility] [address] [id number] [place] [address] Sep, [facility] [place] [facility] [address] [id number] [place] [address] Aug, [facility] [place] [facility] [address] [id number] [place] [address] Aug, [facility] [place] [facility] [address] [facility] [id number] [place] [address] Jul, [facility] [place] [facility] [address] [id number] [place] [address] Jul, [facility] [place] [facility] [address] [id number] [place] [address] Jul, [facility] [place] [facility] [address] [id number] [place] [address] Jul, [facility] [place] [facility] [address] [id number] [place] [address] Jul, [facility] [place] [facility] [address] [id number] [place] [address] Apr, [facility] [place] [facility] [address] [id number] [place] [address] Apr, [facility] [place] [facility] [address] [id number] [place] [address] Mar, [facility] [place] [facility] [address] [id number] [place] [address] Feb, [facility] [place] [facility] [address] [id number] [place] [address] Jan, [facility] [place] [facility] [address] [id number] [place] [address] Jan, [facility] [address] [id number] [place] [address] Oct, [facility] [address] [id number] [place] [address] Sep, [facility] [address] [id number] [place] [address] Sep, [facility] [address] [id number] [place] [address] Sep, [facility] [address] [id number] [place] [address] Aug, [facility] [address] [id number] [place] [address] Aug, [facility] [address] [id number] [place] [address] May, [facility] [address] [id number] [place] [address] May, [facility] [address] [id number] [place] [address] May, [facility] [address] [id number] [place] [address] May, [facility] [address] [id number] [place] [address] May, [facility] [address] [id number] [place] [address] May, [facility] [id number] [place] [address] May, [facility] [address] [id number] [place] [address] May, [facility] [address] [id number] [place] [address] Apr, [facility] [address] [id number] [place] [address] Feb, [facility] [address] [id number] [place] [address] Jan, [facility] [address] [id number] [place] [address] Jan, [facility] [address] [id number] [place] [address] Jan, [facility] [address] [id number] [place] [address] Jan, [facility] [address] [id number] [place] [address] Jan, [facility] [address] [id number] [place] [address] Jan, [facility] [address] [id number] [place] [address] Dec, [facility] [address] [id number] [place] [address] Dec, [facility] [address] [id number] [place] [address] Dec, [facility] [address] [id number] [place] [address] Dec, [facility] [address] [id number] [place] [address] Dec, [facility] [address] [id number] [place] [address] November, [facility] [address] [id number] [place] [address] November, [facility] [address] [id number] [place] [address] November, [facility] [address] [id number] [place] [address] November, [facility] [address] [id number] [place] [address] November, [facility] [address] [id number] [place] [address] Oct, [facility] [address] [id number] [place] [address] Oct, [facility] [address] [id number] [place] [address] Oct, [facility] [address] [id number] [place] [address] May, [facility] [address] [id number] [place] [address] May, [facility] [address] [id number] [place] [address] May, [facility] [id number] [place] [address] May, [facility] [id number] [place] [address] Aug, [facility] [id number] [place] [address] Jul, [facility] [id number] [place] [address] Jun, [facility] [id number] [place] [address] Jun, [facility] [id number] [place] [address] May, [facility] [id number] [place] [address] May, [facility] [id number] [place] [address] Apr, [facility] [id number] [place] [address] Apr, [facility] [id number] [place] [address] Apr, [facility] [id number] [place] [address] Apr, [facility] [id number] [place] [address] Mar, [facility] [id number] [place] [address] November, [facility] [id number] [place] [address] Oct, [facility] [id number] [place] [address] 16 Mar, 2009 IMMUNIZATIONS No Known Immunizations [...] repair 08/2018 Hospitalization History he went to [facility] for depression , anxiety three years ago
--- OUTSIDE RECORDS SUMMARY | 2019-10-12 11:15 | XMS REPORT ---
Author Author Francisco Stacy Organization [facility] [place] Address [address] [place] [address] Care Team Providers Care [place] Hand Name Role Phone HEIDE Stacy Unavailable PROBLEMS Type Condition ICD9-CM Code QJH00-UM Code Onset Dates Condition S tatus SNOMED Code Problem Closed nondisplaced fracture of distal phalanx o f left ring finger S62.665A Jul, Active 52833782 Problem Insomnia G47.00 Active 713019269 Problem Mixed hyperlipidemia E78.2 Apr, Active 736492794 Problem Anxiety F41.9 Active 40696930 Problem Depression F32.9 Active 25918095 Problem Tremor, essential G25.0 Apr, Active 060994876 Problem Tobacco use Z72.0 Jul, Active 87317 3000 Problem Severe episode of recurrent major depressive disorder, without psychotic features F33.2 Active 74193786 Problem Generalized anxiety disorder F41.1 A ctive 23499826 Problem Depression, major, recurrent, in partial remission F33.41 Active 69820135 Problem COPD (chronic obstructive pulmonary disease) J44.9 Active 76724240 Problem Reactive airway disease, mild persistent, uncomplicated J45.30 Active 786434752 Problem Degenerative disc disease, lumbar M51.36 Active 22336375 Problem Pulmonary emphysema, unspecified emphysema type J4 3.9 Active 82569469 Problem Hyperlipemia E78.5 Active 3223066 4 Problem Essential hypertension I10 Active 00609377 Problem Mild episode of recurrent major depressive disorder F33.0 Active 062379020 Problem Edentulous K00.0 Active [id number] ALLERGIES No Information ENCOUNTERS Encounter Location Date Diagnosis [facility] [place] [address] [id number] [place] [address] Dec, [facility] [place] [address] [id number] [place] [address] Sep, [place] [address] [address] Sep, [place] [address] [address] Sep, [place] [address] [address] Aug, [place] [address] [address] Aug, Hyperlipemia E78.5 [place] [address] [address] Jul, [place] [address] [address] Jul, Testicle trouble N50.9 ; Left knee pain, unspecified chronicity M25.562 ; Sore throat J02.9 and Hyperlipemia E78.5 [place] [address] [address] Jul, Generalized anxiety disorder F41.1 and M ild episode of recurrent major depressive disorder F33.0 [place] [address] [address] Jun, [place] [address] [address] Jun, [place] [address] [address] Jun, Testicle trouble N50.9 ; Generalized anx iety disorder F41.1 ; Hyperlipemia E78.5 ; COPD (chronic obstructive pulmonary disease) J44.9 and Tobacco abuse Z72.0 [place] [address] [address] Jun, Testicle trouble N50.9 ; Generalized anx iety disorder F41.1 ; Hyperlipemia E78.5 ; COPD (chronic obstructive pulmonary disease) J44.9 and Tobacco abuse Z72.0 [place] [address] [address] Jun, Generalized anxiety disorder F41.1 ; Mil d episode of recurrent major depressive disorder F33.0 and Mild episode of recurrent major depressive disorder F33.0 [facility] [address] [place] [address] May, Encounter for immunization Z 23 [facility] [place] [address] [address] May, Mild episode of recurrent major depressi ve disorder F33.0 and Generalized anxiety disorder F41.1 [facility] [place] [address] [address] Apr, Generalized anxiety disorder F41.1 [facility] [place] [address] [address] Apr, Generalized anxiety disorder F41.1 and M ild episode of recurrent major depressive disorder F33.0 [facility] [place] [address] [address] Mar, [facility] [address] [place] [address] Mar, [facility] [place] [address] [address] Jan, Generalized anxiety disorder F41.1 and M ild episode of recurrent major depressive disorder F33.0 [facility] [place] [address] [place] [id number] [place] [address] Jan, Mild episode of recurrent major depressi ve disorder F33.0 ; Generalized anxiety disorder F41.1 and Mild episode of recurrent major depressive disorder F33.0 [facility] [place] [address] [place] [id number] [place] [address] Dec, [facility] [place] [address] [address] Dec, Generalized anxiety disorder F41.1 and M ild episode of recurrent major depressive disorder F33.0 [facility] [place] [address] [address] November, Mild episode of recurrent major depressi ve disorder F33.0 and Generalized anxiety disorder F41.1 [address] [place] [address] November, [facility] [place] [address] [address] Oct, Essential hypertension I10 [facility] [place] [address] [address] Oct, Generalized anxiety disorder F41.1 and M ild episode of recurrent major depressive disorder F33.0 [facility] [place] [address] [address] Oct, Encounter for Medicare annual wellness e xam Z00.00 ; COPD (chronic obstructive pulmonary disease) J44.9 ; Mild episode of recurrent major depressive disorder F33.0 ; Mixed hyperlipidemia E78.2 ; Degenerative disc disease, lumbar M51.36 and Left foot pain M79.672 [facility] [place] [address] [address] Oct, Generalized anxiety disorder F41.1 and M ild episode of recurrent major depressive disorder F33.0 [place] [address] [address] Oct, Generalized anxiety disorder F41.1 and M ild episode of recurrent major depressive disorder F33.0 [facility] [place] [address] [address] Oct, Generalized anxiety disorder F41.1 [facility] [place] [address] [address] Sep, Hyperlipemia E78.5 and Depression F32.9 [facility] [place] [address] [address] Sep, [facility] [place] [address] [address] Sep, Generalized anxiety disorder F41.1 and M ild episode of recurrent major depressive disorder F33.0 [place] [address] [address] Sep, Generalized anxiety disorder F41.1 and M ild episode of recurrent major depressive disorder F33.0 [facility] [place] [address] [place] [id number] [place] [address] Aug, Mild episode of recurrent major depressi ve disorder F33.0 and Generalized anxiety disorder F41.1 [facility] [place] [address] [address] Jul, Generalized anxiety disorder F41.1 and M ild episode of recurrent major depressive disorder F33.0 [facility] [place] [address] [address] Jul, Mild episode of recurrent major depressi ve disorder F33.0 and Generalized anxiety disorder F41.1 [facility] [place] [address] [address] Jul, [facility] [place] [address] [address] Jun, [facility] [place] [address] [place] [address] [id number] [place] [address] Jun, [facility] [place] [address] [address] Jun, Generalized anxiety disorder F41.1 and M ild episode of recurrent major depressive disorder F33.0 [facility] [place] [address] [address] Jun, [facility] [place] [address] [address] Feb, Mild episode of recurrent major depressi ve disorder F33.0 and Generalized anxiety disorder F41.1 [facility] [place] [address] [address] November, Mild episode of recurrent major depressi ve disorder F33.0 and Generalized anxiety disorder F41.1 [facility] [place] [address] [address] November, [place] [address] [address] November, Mild episode of recurrent major depressi ve disorder F33.0 and Generalized anxiety disorder F41.1 [place] [address] [address] November, Mild episode of recurrent major depressi ve disorder F33.0 [place] [address] [address] Sep, Mild episode of recurrent major depressi ve disorder F33.0 [place] [address] [address] 05 Sep, 2017 Acute pain of left knee M25.562 [place] [address] [address] 28 Aug, 2017 Mild episode of recurrent major depressi ve disorder F33.0 and Generalized anxiety disorder F41.1 [place] [address] [address] 15 Aug, 2017 Hyperlipemia E78.5 [place] [address] [address] 07 Aug, 2017 Acute pain of left knee M25.562 [place] [address] [address] 05 Aug, 2017 [place] [address] [address] Jul, COPD (chronic obstructive pulmonary dise ase) J44.9 and Edentulous K00.0 [place] [address] [address] Jul, Dental examination Z01.20 [place] [address] [address] Jul, Severe episode of recurrent major depres sive disorder, without psychotic features F33.2 [place] [address] [address] Jun, Severe episode of recurrent major depres sive disorder, without psychotic features F33.2 and Generalized anxiety disorder F41.1 [place] [address] [address] Jun, Callus of foot L84 ; Hyperlipemia E78.5 and Pulmonary emphysema, unspecified emphysema type J43.9 [place] [address] [address] May, Generalized anxiety disorder F41.1 and M ild episode of recurrent major depressive disorder F33.0 [place] [address] [address] May, Severe episode of recurrent major depres sive disorder, without psychotic features F33.2 [place] [address] [address] Apr, [place] [address] [address] Apr, Severe episode of recurrent major depres sive disorder, without psychotic features F33.2 and Generalized anxiety disorder F41.1 [place] [address] [address] Mar, Generalized anxiety disorder F41.1 [place] [address] [address] Feb, Hyperlipemia E78.5 [place] [address] [address] Feb, Generalized anxiety disorder F41.1 and S evere episode of recurrent major depressive disorder, without psychotic features F33.2 [place] [address] [address] Feb, Hyperlipemia E78.5 [place] [address] [address] Feb, Generalized anxiety disorder F41.1 [place] [address] [address] Feb, Depression, major, recurrent, in partial remission F33.41 ; Hyperlipemia E78.5 ; Night sweats R61 ; Reactive airway disease, mild persistent, uncomplicated J45.30 and Essential hypertension I10 [place] [address] [address] Jan, Generalized anxiety disorder F41.1 and S evere episode of recurrent major depressive disorder, without psychotic features F33.2 [place] [address] [address] Dec, Anxiety F41.9 [place] [address] [address] Dec, Depression, major, recurrent, moderate F 33.1 ; Generalized anxiety disorder F41.1 and Insomnia G47.00 [place] [address] [address] November, Anxiety F41.[address] [address] Sep, Depression, major, recurrent, in partial remission F33.41 [place] [address] [address] Sep, Reactive airway disease, mild persistent , uncomplicated J45.30 [place] [address] [address] Aug, Depression, major, recurrent, in partial remission F33.41 [place] [address] [address] Aug, Depression, major, recurrent, in partial remission F33.41 and Generalized anxiety disorder F41.[address] [address] Jul, [address] [address] May, Anxiety F41.[address] [address] May, Depression, major, recurrent, moderate F 33.1 and Generalized anxiety disorder F41.1 [place] [address] [address] May, [place] [address] [address] Apr, [place] [address] [address] Mar, Degenerative disc disease, lumbar M51.36 and Left foot pain M79.672 [place] [address] [address] Mar, Dysthymia F34.1 and Generalized anxiety disorder F41.1 [place] [address] [address] Jan, Depression, major, recurrent, in partial remission F33.41 ; Generalized anxiety disorder F41.1 and Difficulty controlling anger R45.4 [place] [address] [address] Jan, [place] [address] [address] Jan, [place] [address] [address] Jan, Dental examination Z01.[address] [address] Jan, Back pain at L4-L5 level M54.5 [place] [address] [address] Dec, Low back pain M54.5 ; Other chronic pain G89.29 and Hyperlipemia E78.5 [place] [address] [address] Dec, Depression F32.9 ; Generalized anxiety d isorder F41.1 and Outbursts of anger R45.[address] [address] Dec, [facility] [address] [facility] [id number] [place] [address] November, Pain of right great toe M79. 674 [facility] [place] [address] [place] [id number] [place] [address] November, [facility] [place] [address] [address] November, [facility] [place] [address] [address] Oct, [facility] [place] [address] [address] Sep, [facility] [place] [address] [address] Sep, [facility] [place] [address] [address] Sep, COPD (chronic obstructive pulmonary dise ase) J44.9 ; Hyperlipidemia E78.5 ; Anxiety F41.9 ; Depression F32.9 and Insomnia G47.00 [facility] [place] [address] [address] Sep, Depression F32.9 ; Anxiety F41.9 and Ins omnia G47.00 [facility] [place] [address] [address] Sep, [facility] [place] [address] [address] Sep, [facility] [place] [address] [address] Sep, COPD (chronic obstructive pulmonary dise ase) J44.9 [facility] [place] [address] [address] Sep, Hyperlipemia E78.5 [facility] [place] [address] [address] Aug, COPD (chronic obstructive pulmonary dise ase) J44.9 ; Hyperlipidemia E78.5 ; Anxiety F41.9 ; Insomnia G47.00 ; Depression F32.9 and Heavy tobacco smoker >10 cigarettes per day F17.210 [place] [address] [address] Aug, [facility] [place] [address] [address] Aug, [place] [address] [address] Aug, [place] [address] [address] Aug, Bronchitis J40 [place] [address] [address] Aug, [place] [address] [address] Jul, [facility] [address] [id number] Jul, Dental examination Z01.20 and Dental car ies K02.[address] [address] Jun, [place] [address] [address] Jun, Encounter for immunization Z23 ; Screeni ng for tuberculosis Z11.1 and Physical exam Z00.[address] [address] May, [address] [address] May, Generalized anxiety disorder F41.1 and D epression, major, recurrent, in partial remission F33.[address] [address] Apr, Hyperlipidemia E78.[address] [address] Mar, Hyperlipemia 272.4 [facility] [place] [address] [address] Feb, Routine general medical examination at [facility] V70.0 and Abrasion of hand, right, infected 914.1 [facility] [place] [address] [address] Feb, Routine general medical examination at [facility] V70.0 ; Pain in soft tissues of limb 729.5 and Pain in tooth 525.9 [facility] [place] [address] [address] Feb, Major depressive disorder, recurrent epi sode, mild 296.31 and Generalized anxiety disorder 300.02 [facility] [place] [address] [address] Feb, [facility] [place] [address] [address] Jan, [facility] [place] [address] [address] Dec, [facility] [place] [address] [address] Dec, [facility] [place] [address] [address] November, [facility] [place] [address] [address] November, Generalized anxiety disorder 300.02 and Major depressive disorder, recurrent episode, mild 296.31 [facility] [place] [address] [address] Oct, [facility] [place] [address] [address] Oct, [facility] [place] [address] [address] Sep, [facility] [place] [address] [address] Sep, [facility] [place] [address] [facility] [id number] [place] [address] Sep, [facility] [address] [id number] [place] [address] Sep, [facility] [address] [id number] [place] [address] Aug, [facility] [address] [id number] [place] [address] Aug, [facility] [address] [id number] [place] [address] Aug, [facility] [address] [id number] [place] [address] Aug, [facility] [address] [id number] [place] [address] Aug, [facility] [address] [id number] [place] [address] Aug, [facility] [address] [id number] [place] [address] Aug, [facility] [address] [id number] [place] [address] Jul, [facility] [address] [id number] [place] [address] Jul, [facility] [address] [id number] [place] [address] Jul, [facility] [address] [id number] [place] [address] Jul, [facility] [address] [id number] [place] [address] Jul, [facility] [address] [id number] [place] [address] Jul, [facility] [address] [id number] [place] [address] Jun, [facility] [address] [id number] [place] [address] Jun, [facility] [address] [facility] [id number] [facility] [place] [address] Feb, [facility] [address] [facility] [id number] [facility] [place] [address] Feb, [facility] [address] [id number] [facility] [place] [address] Jan, [facility] [address] [facility] [id number] [facility] [place] [address] Jan, [facility] [address] [facility] [id number] [facility] [place] [address] Jan, [facility] [address] [id number] [place] [address] Jan, [facility] [address] [id number] [place] [address] Oct, [facility] [address] [id number] [place] [address] Oct, [facility] [address] [id number] [place] [address] Oct, [facility] [address] [id number] [place] [address] Oct, [facility] [address] [id number] [place] [address] Oct, [facility] [address] [id number] [place] [address] Oct, [facility] [address] [id number] [place] [address] Sep, [facility] [address] [id number] [place] [address] Sep, [facility] [address] [id number] [place] [address] Aug, [facility] [address] [id number] [place] [address] Aug, [facility] [address] [id number] [place] [address] Jul, [facility] [address] [facility] [id number] [place] [address] Jul, [facility] [address] [id number] [place] [address] Jul, [facility] [address] [id number] [place] [address] Jul, [facility] [address] [id number] [place] [address] Jul, [facility] [address] [id number] [place] [address] Apr, [facility] [address] [id number] [place] [address] Apr, [facility] [address] [id number] [place] [address] Mar, [facility] [address] [id number] [place] [address] Feb, [facility] [address] [id number] [place] [address] Jan, [facility] [address] [id number] [place] [address] Jan, [facility] [address] [id number] [place] [address] Oct, [facility] [address] [id number] [place] [address] Sep, [facility] [address] [id number] [place] [address] Sep, [facility] [address] [id number] [place] [address] Sep, [facility] [address] [id number] [place] [address] Aug, [facility] [address] [id number] [place] [address] Aug, [facility] [address] [id number] [place] [address] May, [facility] [address] [id number] [place] [address] May, [facility] [address] [id number] [place] [address] May, [facility] [address] [id number] [place] [address] May, [facility] [address] [id number] [place] [address] May, [facility] [address] [id number] [place] [address] May, [facility] [address] [id number] [place] [address] May, [facility] [address] [id number] [place] [address] May, [facility] [address] [id number] [place] [address] Apr, [facility] [address] [id number] [place] [address] Feb, [facility] [address] [id number] [place] [address] Jan, [facility] [address] [id number] [place] [address] Jan, [facility] [address] [id number] [place] [address] Jan, [facility] [address] [id number] [place] [address] Jan, [facility] [address] [id number] [place] [address] Jan, [facility] [address] [id number] [place] [address] Jan, [facility] [address] [id number] [facility] [place] [address] Dec, [facility] [address] [facility] [id number] [facility] [place] [address] Dec, [facility] [address] [id number] [place] [address] Dec, [facility] [address] [id number] [place] [address] Dec, [facility] [address] [id number] [place] [address] Dec, [facility] [address] [id number] [place] [address] November, [facility] [address] [id number] [place] [address] November, [facility] [address] [id number] [place] [address] November, [facility] [address] [id number] [place] [address] November, [facility] [address] [id number] [place] [address] November, [facility] [address] [id number] [place] [address] Oct, [facility] [address] [id number] [place] [address] Oct, [facility] [address] [id number] [place] [address] Oct, [facility] [address] [id number] [place] [address] May, [facility] [address] [id number] [place] [address] May, [facility] [address] [id number] [place] [address] May, [facility] [address] [id number] [place] [address] May, [facility] [id number] [place] [address] Aug, [facility] [place] [id number] [place] [address] Jul, [facility] [place] [id number] [place] [address] Jun, [facility] [place] [id number] [place] [address] Jun, [facility] [place] [id number] [place] [address] May, [facility] [place] [address] [address] May, [facility] [place] [address] [address] Apr, [facility] [place] [id number] [place] [address] Apr, [facility] [place] [id number] [place] [address] Apr, [facility] [place] [id number] [place] [address] Apr, [facility] [place] [id number] [place] [address] Mar, [facility] [place] [id number] [place] [address] November, [facility] [place] [id number] [place] [address] Oct, [facility] [place] [id number] [place] [address] Mar, IMMUNIZATIONS No Known Immunizations SOCIAL HISTORY Never Assessed REASON FOR VISIT PLAN OF CARE VITAL SIGNS Height 72 in 2013-11-15 Weight 192.2 lbs 2013-11-15 Heart Rate 78 bpm 2013-11-15 Blood pressure systolic 144 mmHg 2013-11-15 Blood pressure diastolic 82 mmHg 2013-11-15 MEDICATIONS Unknown Medications RESULTS No Results PROCEDURES [...] repair 08/2018 Hospitalization History he went to [facility] for depression , anxiety three years ago
--- OUTSIDE RECORDS SUMMARY | 2019-10-12 11:15 | XMS REPORT ---
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 Name Role Phone HEIDE Stacy Unavailable PROBLEMS Type Condition ICD9-CM Code XZZ02-DZ Code Onset Dates Condition S tatus SNOMED Code Problem Closed nondisplaced fracture of distal phalanx o f left ring finger S62.665A Jul, Active 29083532 Problem Insomnia G47.00 Active 653519501 Problem Mixed hyperlipidemia E78.2 Apr, Active 007491519 Problem Anxiety F41.9 Active 04414996 Problem Depression F32.9 Active 63669823 Problem Tremor, essential G25.0 Apr, Active 108990562 Problem Tobacco use Z72.0 Jul, Active 35194 3000 Problem Severe episode of recurrent major depressive disorder, without psychotic features F33.2 Active 08384675 Problem Generalized anxiety disorder F41.1 A ctive 24731384 Problem Depression, major, recurrent, in partial remission F33.41 Active 51864485 Problem COPD (chronic obstructive pulmonary disease) J44.9 Active 91208025 Problem Reactive airway disease, mild persistent, uncomplicated J45.30 Active 259875263 Problem Degenerative disc disease, lumbar M51.36 Active 61807833 Problem Pulmonary emphysema, unspecified emphysema type J4 3.9 Active 10613786 Problem Hyperlipemia E78.5 Active 0010887 4 Problem Essential hypertension I10 Active 54931274 Problem Mild episode of recurrent major depressive disorder F33.0 Active 254823534 Problem Edentulous K00.0 Active 399612187 ALLERGIES No Information ENCOUNTERS Encounter Location Date Diagnosis [facility] [address] [id number] [place] [address] Dec, [facility] [address] [id number] [place] [address] Sep, [place] [address] [address] Sep, [place] [address] [address] Aug, [facility] [address] [address] Aug, [place] [address] [address] Jul, Testicle trouble N50.9 ; Left knee pain, unspecified chronicity M25.562 ; Sore throat J02.9 and Hyperlipemia E78.5 [place] [address] [address] 08 Jul, 2019 Generalized anxiety disorder F41.1 and M ild episode of recurrent major depressive disorder F33.0 [place] [address] [address] Jun, [place] [address] [address] Jun, [place] [address] [address] Jun, Testicle trouble N50.9 ; Generalized anx iety disorder F41.1 ; Hyperlipemia E78.5 ; COPD (chronic obstructive pulmonary disease) J44.9 and Tobacco abuse Z72.0 [place] [address] [address] Jun, Testicle trouble N50.9 ; Generalized anx iety disorder F41.1 ; Hyperlipemia E78.5 ; COPD (chronic obstructive pulmonary disease) J44.9 and Tobacco abuse Z72.0 [place] [address] [address] Jun, Generalized anxiety disorder F41.1 ; Mil d episode of recurrent major depressive disorder F33.0 and Mild episode of recurrent major depressive disorder F33.0 [address] [place] [address] May, Encounter for immunization Z 23 [facility] [address] [place] [id number] [place] [address] May, Mild episode of recurrent major depressi ve disorder F33.0 and Generalized anxiety disorder F41.1 [facility] [id number] [place] [address] Apr, Generalized anxiety disorder F41.1 [facility] [address] [id number] [place] [address] Apr, Generalized anxiety disorder F41.1 and M ild episode of recurrent major depressive disorder F33.0 [place] [address] [id number] [place] [address] Mar[facility] [address] [place] [address] Mar, [facility] [id number] [place] [address] Jan, Generalized anxiety disorder F41.1 and M ild episode of recurrent major depressive disorder F33.0 [facility] [id number] [place] [address] Jan, Mild episode of recurrent major depressi ve disorder F33.0 ; Generalized anxiety disorder F41.1 and Mild episode of recurrent major depressive disorder F33.0 [place] [id number] [place] [address] Dec, [facility] [id number] [place] [address] Dec, Generalized anxiety disorder F41.1 and M ild episode of recurrent major depressive disorder F33.0 [place] [id number] [place] [address] November, Mild episode of recurrent major depressi ve disorder F33.0 and Generalized anxiety disorder F41.1 [facility] [address] [place] [address] November, [facility] [address] [address] Oct, Essential hypertension I10 [facility] [address] [address] Oct, Generalized anxiety disorder F41.1 and M ild episode of recurrent major depressive disorder F33.0 [place] [address] [address] Oct, Encounter for Medicare annual wellness e xam Z00.00 ; COPD (chronic obstructive pulmonary disease) J44.9 ; Mild episode of recurrent major depressive disorder F33.0 ; Mixed hyperlipidemia E78.2 ; Degenerative disc disease, lumbar M51.36 and Left foot pain M79.672 [place] [address] [address] Oct, Generalized anxiety disorder F41.1 and M ild episode of recurrent major depressive disorder F33.0 [place] [address] [address] Oct, Generalized anxiety disorder F41.1 and M ild episode of recurrent major depressive disorder F33.0 [place] [address] [address] Oct, Generalized anxiety disorder F41.1 [place] [address] [address] Sep, Hyperlipemia E78.5 and Depression F32.9 [place] [address] [address] Sep, [place] [address] [address] Sep, Generalized anxiety disorder F41.1 and M ild episode of recurrent major depressive disorder F33.0 [place] [address] [address] Sep, Generalized anxiety disorder F41.1 and M ild episode of recurrent major depressive disorder F33.0 [place] [address] [address] Aug, Mild episode of recurrent major depressi ve disorder F33.0 and Generalized anxiety disorder F41.1 [facility] [address] [address] Jul, Generalized anxiety disorder F41.1 and M ild episode of recurrent major depressive disorder F33.0 [facility] [address] [address] Jul, Mild episode of recurrent major depressi ve disorder F33.0 and Generalized anxiety disorder F41.1 [facility] [address] [address] Jul, [facility] [address] [address] Jun, [facility] [address] [address] Jun, [facility] [address] [address] Jun, Generalized anxiety disorder F41.1 and M ild episode of recurrent major depressive disorder F33.0 [facility] [address] [address] Jun, [facility] [address] [address] Feb, Mild episode of recurrent major depressi ve disorder F33.0 and Generalized anxiety disorder F41.1 [facility] [address] [address] November, Mild episode of recurrent major depressi ve disorder F33.0 and Generalized anxiety disorder F41.1 [facility] [address] [address] November, [facility] [address] [address] November, Mild episode of recurrent major depressi ve disorder F33.0 and Generalized anxiety disorder F41.1 [facility] [address] [address] November, Mild episode of recurrent major depressi ve disorder F33.0 [place] [address] [address] Sep, Mild episode of recurrent major depressi ve disorder F33.0 [place] [address] [address] 05 Sep, 2017 Acute pain of left knee M25.562 [place] [address] [address] 28 Aug, 2017 Mild episode of recurrent major depressi ve disorder F33.0 and Generalized anxiety disorder F41.1 [place] [address] [address] 15 Aug, 2017 Hyperlipemia E78.5 [place] [address] [address] 07 Aug, 2017 Acute pain of left knee M25.562 [place] [address] [address] 05 Aug, 2017 [place] [address] [address] Jul, COPD (chronic obstructive pulmonary dise ase) J44.9 and Edentulous K00.0 [place] [address] [address] Jul, Dental examination Z01.20 [place] [address] [address] Jul, Severe episode of recurrent major depres sive disorder, without psychotic features F33.2 [place] [address] [address] Jun, Severe episode of recurrent major depres sive disorder, without psychotic features F33.2 and Generalized anxiety disorder F41.1 [place] [address] [address] Jun, Callus of foot L84 ; Hyperlipemia E78.5 and Pulmonary emphysema, unspecified emphysema type J43.9 [place] [address] [address] May, Generalized anxiety disorder F41.1 and M ild episode of recurrent major depressive disorder F33.0 [place] [address] [address] 07 May, 2017 Severe episode of recurrent major depres sive disorder, without psychotic features F33.2 [place] [address] [address] Apr, [place] [address] [address] Apr, Severe episode of recurrent major depres sive disorder, without psychotic features F33.2 and Generalized anxiety disorder F41.1 [place] [address] [address] Mar, Generalized anxiety disorder F41.1 [place] [address] [address] Feb, Hyperlipemia E78.5 [place] [address] [address] Feb, Generalized anxiety disorder F41.1 and S evere episode of recurrent major depressive disorder, without psychotic features F33.2 [place] [address] [address] Feb, Hyperlipemia E78.5 [place] [address] [address] Feb, Generalized anxiety disorder F41.1 [place] [address] [address] Feb, Depression, major, recurrent, in partial remission F33.41 ; Hyperlipemia E78.5 ; Night sweats R61 ; Reactive airway disease, mild persistent, uncomplicated J45.30 and Essential hypertension I10 [place] [address] [address] Jan, Generalized anxiety disorder F41.1 and S evere episode of recurrent major depressive disorder, without psychotic features F33.2 [place] [address] [address] Dec, Anxiety F41.9 [place] [address] [address] Dec, Depression, major, recurrent, moderate F 33.1 ; Generalized anxiety disorder F41.1 and Insomnia G47.00 [place] [address] [address] November, Anxiety F41.[address] [address] Sep, Depression, major, recurrent, in partial remission F33.[address] [address] Sep, Reactive airway disease, mild persistent , uncomplicated J45.30 [place] [address] [address] Aug, Depression, major, recurrent, in partial remission F33.41 [place] [address] [address] Aug, Depression, major, recurrent, in partial remission F33.41 and Generalized anxiety disorder F41.1 [place] [address] [address] Jul, [address] [address] May, Anxiety F41.9 [place] [address] [address] May, Depression, major, recurrent, moderate F 33.1 and Generalized anxiety disorder F41.1 [place] [address] [address] May, [address] [address] Apr, [place] [address] [address] 29 Mar, 2016 Degenerative disc disease, lumbar M51.36 and Left foot pain M79.672 [place] [address] [address] 29 Mar, 2016 Dysthymia F34.1 and Generalized anxiety disorder F41.[address] [address] Jan, Depression, major, recurrent, in partial remission F33.41 ; Generalized anxiety disorder F41.1 and Difficulty controlling anger R45.[address] [address] Jan, [place] [address] [address] Jan, [address] [address] Jan, Dental examination Z01.[address] [address] Jan, Back pain at L4-L5 level M54.[address] [address] Dec, Low back pain M54.5 ; Other chronic pain G89.29 and Hyperlipemia E78.[address] [address] Dec, Depression F32.9 ; Generalized anxiety d isorder F41.1 and Outbursts of anger R45.[address] [address] Dec, [facility] [address] [facility] [id number] [place] [address] November, Pain of right great toe M79. 674 [place] [address] [address] November, [facility] [address] [address] November, [facility] [address] [address] Oct, [facility] [address] [address] Sep, [facility] [address] [address] Sep, [facility] [address] [address] Sep, COPD (chronic obstructive pulmonary dise ase) J44.9 ; Hyperlipidemia E78.5 ; Anxiety F41.9 ; Depression F32.9 and Insomnia G47.00 [place] [address] [address] Sep, Depression F32.9 ; Anxiety F41.9 and Ins omnia G47.00 [facility] [address] [address] Sep, [facility] [address] [address] Sep, [facility] [address] [address] Sep, COPD (chronic obstructive pulmonary dise ase) J44.9 [facility] [address] [address] Sep, Hyperlipemia E78.5 [facility] [address] [address] Aug, COPD (chronic obstructive pulmonary dise ase) J44.9 ; Hyperlipidemia E78.5 ; Anxiety F41.9 ; Insomnia G47.00 ; Depression F32.9 and Heavy tobacco smoker >10 cigarettes per day F17.210 [facility] [address] [address] Aug, [place] [address] [address] Aug, [place] [address] [address] Aug, [facility] [address] [address] Aug, Bronchitis J40 [place] [address] [address] Aug, [place] [address] [address] Jul, [facility] [address] [id number] Jul, Dental examination Z01.20 and Dental car ies K02.[address] [address] Jun, [place] [address] [address] Jun, Encounter for immunization Z23 ; Screeni ng for tuberculosis Z11.1 and Physical exam Z00.00 [place] [address] [address] May, [place] [address] [address] May, Generalized anxiety disorder F41.1 and D epression, major, recurrent, in partial remission F33.41 [place] [address] [address] Apr, Hyperlipidemia E78.5 [place] [address] [address] Mar, Hyperlipemia 272.4 [place] [address] [address] Feb, Routine general medical examination at [facility] V70.0 and Abrasion of hand, right, infected 914.1 [place] [id number] [place] [address] Feb, Routine general medical examination at [facility] V70.0 ; Pain in soft tissues of limb 729.5 and Pain in tooth 525.9 [facility] [id number] [place] [address] Feb, Major depressive disorder, recurrent epi sode, mild 296.31 and Generalized anxiety disorder 300.02 [facility] [address] [address] Feb, [facility] [address] [address] Jan, [facility] [address] [address] Dec, [facility] [address] [address] Dec, [facility] [address] [address] November, [facility] [address] [address] November, Generalized anxiety disorder 300.02 and Major depressive disorder, recurrent episode, mild 296.31 [facility] [address] [address] Oct, [facility] [address] [address] Oct, [facility] [id number] [place] [address] Sep, [facility] [address] [address] Sep, [facility] [address] [address] Sep, [facility] [address] [address] Sep, [facility] [address] [place] [address] Aug, 2014 [facility] [address] [id number] [place] [address] Aug, 2014 [facility] [address] [id number] [place] [address] Aug, 2014 [facility] [address] [id number] [place] [address] Aug, 2014 [facility] [address] [id number] [place] [address] Aug, 2014 [facility] [address] [id number] [place] [address] Aug, 2014 [facility] [address] [id number] [place] [address] Aug, [facility] [address] [id number] [place] [address] Jul, [facility] [address] [id number] [place] [address] Jul, [facility] [address] [id number] [place] [address] Jul, [facility] [address] [id number] [place] [address] Jul, [facility] [address] [id number] [place] [address] Jul, [facility] [address] [id number] [place] [address] Jul, [facility] [address] [id number] [place] [address] Jun, [facility] [address] [id number] [place] [address] Jun, [facility] [address] [id number] [place] [address] Feb, [facility] [address] [id number] [place] [address] Feb, [facility] [id number] [place] [address] Jan, [facility] [address] [id number] [place] [address] Jan, [facility] [address] [id number] [place] [address] Jan, [facility] [address] [id number] [place] [address] Jan, [facility] [address] [facility] [id number] [place] [address] Oct, [facility] [address] [id number] [place] [address] Oct, [facility] [address] [id number] [place] [address] Oct, [facility] [address] [id number] [place] [address] Oct, [facility] [address] [id number] [place] [address] Oct, [facility] [address] [id number] [place] [address] Oct, [facility] [address] [id number] [place] [address] Sep, [facility] [address] [id number] [place] [address] Sep, [facility] [address] [id number] [place] [address] Aug, [facility] [address] [id number] [place] [address] Aug, [facility] [address] [id number] [place] [address] Jul, [facility] [address] [id number] [place] [address] Jul, [facility] [address] [id number] [place] [address] Jul, [facility] [address] [facility] [id number] [place] [address] Jul, [facility] [address] [id number] [place] [address] Jul, [facility] [address] [id number] [place] [address] Apr, [facility] [address] [id number] [place] [address] Apr, [facility] [address] [id number] [place] [address] Mar, [facility] [address] [id number] [place] [address] Feb, [facility] [address] [id number] [place] [address] Jan, [facility] [address] [id number] [place] [address] Jan, [facility] [address] [id number] [place] [address] Oct, [facility] [address] [id number] [place] [address] Sep, [facility] [address] [id number] [place] [address] Sep, [facility] [address] [id number] [place] [address] Sep, [facility] [address] [id number] [place] [address] Aug, [facility] [address] [id number] [place] [address] Aug, [facility] [address] [id number] [place] [address] May, [facility] [address] [id number] [place] [address] May, [facility] [address] [id number] [place] [address] May, [facility] [address] [id number] [place] [address] May, [facility] [address] [id number] [place] [address] May, [facility] [address] [id number] [place] [address] May, [facility] [address] [id number] [place] [address] May, [facility] [address] [id number] [place] [address] May, [facility] [address] [id number] [place] [address] Apr, [facility] [address] [id number] [place] [address] Feb, [facility] [address] [id number] [place] [address] Jan, [facility] [address] [id number] [place] [address] Jan, [facility] [address] [id number] [place] [address] Jan, [facility] [address] [id number] [place] [address] Jan, [facility] [address] [id number] [place] [address] Jan, [facility] [address] [id number] [place] [address] Jan, [facility] [address] [id number] [place] [address] Dec, [facility] [address] [id number] [place] [address] Dec, [facility] [address] [id number] [place] [address] Dec, [facility] [address] [id number] [place] [address] Dec, [facility] [address] [id number] [place] [address] Dec, [facility] [address] [id number] [place] [address] November, [facility] [address] [id number] [place] [address] November, [facility] [address] [id number] [place] [address] November, [facility] [address] [id number] [place] [address] November, [facility] [address] [id number] [place] [address] November, [facility] [address] [id number] [place] [address] Oct, [facility] [address] [id number] [place] [address] Oct, [facility] [address] [id number] [place] [address] Oct, [facility] [address] [id number] [place] [address] May, [facility] [address] [id number] [place] [address] May, [facility] [address] [id number] [place] [address] May, [facility] [address] [id number] [place] [address] May, [facility] [address] [id number] [place] [address] Aug, [facility] [address] [id number] [place] [address] Jul, [facility] [address] [id number] [place] [address] 15 Jun, 2010 [facility] [id number] [place] [address] Jun, [facility] [id number] [place] [address] May, [facility] [id number] [place] [address] May, [facility] [id number] [place] [address] Apr, [facility] [address] [address] Apr, [facility] [address] [address] Apr, [facility] [address] [address] Apr, [facility] [address] [address] Mar, [facility] [id number] [place] [address] November, [facility] [id number] [place] [address] Oct, [facility] [id number] [place] [address] Mar, IMMUNIZATIONS No Known Immunizations SOCIAL HISTORY [...] repair 08/2018 Hospitalization History he went to [facility] for depression , anxiety three years ago
--- OUTSIDE RECORDS SUMMARY | 2019-10-12 11:21 | XMS REPORT | Continuity of Care Document ---
Author Organization Unknown Address Unknown Phone Unavailable Allergies Active Description Code Type Severity Reaction Onset Reported/Identified Relationship to Patient Clinical Status Yes Ch[facility] Drug Allergy 10/13/2012 Yes [facility] Drug Allergy N/A N/A 10/13/2012 Yes No Known Drug Allergies [id number] Drug Allergy Unknown N/A 10/05/2019 Medications There is no data. Problems Date Dx Coded Attending Type Code Diagnosis Diagnosed By 06/25/1447 ARIELLA SHEIKH Ot M54.5 LOW BACK PAIN 04/11/2009 LIVIER BAKRE DO 379 .91 eye pain 04/11/2009 LIVIER BAKER DO 379 .91 eye pain 04/11/2009 JUMA QUACH DO 379.91 eye pain 04/11/2009 LIVIER BAKER DO 379 .91 eye pain 04/11/2009 SAMUEL MARIE DDS 379.91 eye pain 04/11/2009 RODRÍGUEZ ESTRADA MD 379.9 1 eye pain 04/11/2009 INDU PUBLIC RELATIONS ASSOCIATE, HEIDE 379 .91 eye pain 04/11/2009 RODRÍGUEZ ESTRADA MD 379.9 1 eye pain 04/11/2009 INDU PUBLIC RELATIONS ASSOCIATE, HEIDE 379 .91 eye pain 04/11/2009 INDU PUBLIC RELATIONS ASSOCIATE, HEIDE 379 .91 eye pain 04/11/2009 INDU PUBLIC RELATIONS ASSOCIATE, HEIDE 379 .91 eye pain 04/11/2009 INDU PUBLIC RELATIONS ASSOCIATE, HEIDE 379 .91 eye pain 04/11/2009 INDU PUBLIC RELATIONS ASSOCIATE, HEIDE 379 .91 eye pain 04/11/2009 JUMA QUACH DO 379.91 EYE PAIN 11/08/2009 LIVIER BAKER DO 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 11/08/2009 LIVIER BAKER DO 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 11/08/2009 JUMA QUACH DO 296.33 MO DEPRESSIVE RECURRENT SEVERE W/O PSYCHOTIC BEHAVIOR 11/08/2009 LIVIER BAKER DO 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 11/08/2009 FRANK CACERES, SAMUEL Yusuf 296.33 MO DEPRESSIVE RECURRENT SEVERE W/O PSYCHOTIC BEHAVIOR 11/08/2009 RODRÍGUEZ ESTRADA MD 296.3 3 MO DEPRESSIVE RECURRENT SEVERE W/O PSYCHOTIC BEHAVIOR 11/08/2009 INDU PUBLIC RELATIONS ASSOCIATE, HEIDE 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 11/08/2009 RODRÍGUEZ ESTRADA MD 296.3 3 MO DEPRESSIVE RECURRENT SEVERE W/O PSYCHOTIC BEHAVIOR 11/08/2009 INDU PUBLIC RELATIONS ASSOCIATE, HEIDE 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 11/08/2009 INDU PUBLIC RELATIONS ASSOCIATE, HEIDE 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 11/08/2009 INDU PUBLIC RELATIONS ASSOCIATE, HEIDE 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 11/08/2009 INDU PUBLIC RELATIONS ASSOCIATE, HEIDE 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 11/08/2009 INDU PUBLIC RELATIONS ASSOCIATE, HEIDE 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 11/08/2009 JUMA QUACH DO 296.33 MO DEPRESSIVE RECURRENT SEVERE W/O PSYCHOTIC BEHAVIOR 11/13/2009 LIVIER BAKER DO 724 .4 THORACIC OR LUMBOSACRAL NEURITIS OR RADICULITIS, UNSPECIFIED 11/13/2009 LIVIER BAKER DO 724 .5 BACKACHE 11/13/2009 LIVIER BAKER DO F 724 .4 THORACIC OR LUMBOSACRAL NEURITIS OR RADICULITIS, UNSPECIFIED 11/13/2009 LIVIER BAKER DO 724 .5 BACKACHE 11/13/2009 JUMA QUACH DO K 724.4 THORACIC OR LUMBOSACRAL NEURITIS OR RADICULITIS, UNSPECIFIED 11/13/2009 HAILEE QUACH DOA K 724.5 BACKACHE 11/13/2009 LIVIER BAKER DO F 724 .4 THORACIC OR LUMBOSACRAL NEURITIS OR RADICULITIS, UNSPECIFIED 11/13/2009 LIVIER BAKER DO F 724 .5 BACKACHE 11/13/2009 SAMUEL MARIE DDS 724.4 THORACIC OR LUMBOSACRAL NEURITIS OR RADICULITIS, UNSPE CIFIED 11/13/2009 SAMUEL MARIE DDS 724.5 BACKACHE 11/13/2009 SEAN BECKETT, RODRÍGUEZ 724.4 THORACIC OR LUMBOSACRAL NEURITIS OR RADICULITIS, UNSPECIFIED 11/13/2009 SEAN BECKETT, RODRÍGUEZ 724.5 BACKACHE 11/13/2009 INDU PUBLIC RELATIONS ASSOCIATE, HEIDE 724 .4 THORACIC OR LUMBOSACRAL NEURITIS OR RADICULITIS, UNSPECIFIED 11/13/2009 INDU PUBLIC RELATIONS ASSOCIATE, HEIDE 724 .5 BACKACHE 11/13/2009 SEAN BECKETT, RODRÍGUEZ 724.4 THORACIC OR LUMBOSACRAL NEURITIS OR RADICULITIS, UNSPECIFIED 11/13/2009 SEAN BECKETT, RODRÍGUEZ 724.5 BACKACHE 11/13/2009 INDU PUBLIC RELATIONS ASSOCIATE, HEIDE 724 .4 THORACIC OR LUMBOSACRAL NEURITIS OR RADICULITIS, UNSPECIFIED 11/13/2009 INDU PUBLIC RELATIONS ASSOCIATE, HEIDE 724 .5 BACKACHE 11/13/2009 INDU PUBLIC RELATIONS ASSOCIATE, HEIDE 724 .4 THORACIC OR LUMBOSACRAL NEURITIS OR RADICULITIS, UNSPECIFIED 11/13/2009 INDU PUBLIC RELATIONS ASSOCIATE, HEIDE 724 .5 BACKACHE 11/13/2009 INDU PUBLIC RELATIONS ASSOCIATE, HEIDE 724 .4 THORACIC OR LUMBOSACRAL NEURITIS OR RADICULITIS, UNSPECIFIED 11/13/2009 INDU PUBLIC RELATIONS ASSOCIATE, HEIDE 724 .5 BACKACHE 11/13/2009 INDU PUBLIC RELATIONS ASSOCIATE, HEIDE 724 .4 THORACIC OR LUMBOSACRAL NEURITIS OR RADICULITIS, UNSPECIFIED 11/13/2009 INDU PUBLIC RELATIONS ASSOCIATE, HEIDE 724 .5 BACKACHE 11/13/2009 INDU PUBLIC RELATIONS ASSOCIATE, HEIDE 724 .4 THORACIC OR LUMBOSACRAL NEURITIS OR RADICULITIS, UNSPECIFIED 11/13/2009 INDU PUBLIC RELATIONS ASSOCIATE, HEIDE 724 .5 BACKACHE 11/13/2009 JUMA QUACH DO 724.4 THORACIC OR LUMBOSACRAL NEURITIS OR RADICULITIS, UNSPECIFIED 11/13/2009 JUMA QUACH DO 724.5 BACKACHE 11/28/2009 LIVIER BAKER DO 525 .9 UNSPECIFIED DISORDER OF THE TEETH AND SUPPORTING STRUCTURES 11/28/2009 LIVIER BAKER DO 525 .9 UNSPECIFIED DISORDER OF THE TEETH AND SUPPORTING STRUCTURES 11/28/2009 JUMA QUACH DO 525.9 UNSPECIFIED DISORDER OF THE TEETH AND SUPPORTING STRUCTURES 11/28/2009 LIVIER BAKER DO 525 .9 UNSPECIFIED DISORDER OF THE TEETH AND SUPPORTING STRUCTURES 11/28/2009 SAMUEL MARIE DDS 525.9 UNSPECIFIED DISORDER OF THE TEETH AND SUPPORTING STRUC TURES 11/28/2009 RODRÍGUEZ ESTRADA MD 525.9 UNSPECIFIED DISORDER OF THE TEETH AND SUPPORTING STRUCTURES 11/28/2009 INDU PUBLIC RELATIONS ASSOCIATE, HEIDE 525 .9 UNSPECIFIED DISORDER OF THE TEETH AND SUPPORTING STRUCTURES 11/28/2009 RODRÍGUEZ ESTRADA MD 525.9 UNSPECIFIED DISORDER OF THE TEETH AND SUPPORTING STRUCTURES 11/28/2009 INDU PUBLIC RELATIONS ASSOCIATE, HEIDE 525 .9 UNSPECIFIED DISORDER OF THE TEETH AND SUPPORTING STRUCTURES 11/28/2009 INDU PUBLIC RELATIONS ASSOCIATE, HEIDE 525 .9 UNSPECIFIED DISORDER OF THE TEETH AND SUPPORTING STRUCTURES 11/28/2009 INDU PUBLIC RELATIONS ASSOCIATE, HEIDE 525 .9 UNSPECIFIED DISORDER OF THE TEETH AND SUPPORTING STRUCTURES 11/28/2009 INDU PUBLIC RELATIONS ASSOCIATE, HEIDE 525 .9 UNSPECIFIED DISORDER OF THE TEETH AND SUPPORTING STRUCTURES 11/28/2009 INDU PUBLIC RELATIONS ASSOCIATE, HEIDE 525 .9 UNSPECIFIED DISORDER OF THE TEETH AND SUPPORTING STRUCTURES 11/28/2009 JUMA QUACH DO 525.9 UNSPECIFIED DISORDER OF THE TEETH AND SUPPORTING STRUCTURES 12/05/2009 LIVIER BAKER DO 296 .32 MO DEPRESSIVE RECURRENT MODERATE 12/05/2009 LIVIER BAKER DO F 296 .32 MO DEPRESSIVE RECURRENT MODERATE 12/05/2009 JUMA QUACH DO 296.32 MO DEPRESSIVE RECURRENT MODERATE 12/05/2009 LIVIER BAKER DO 296 .32 MO DEPRESSIVE RECURRENT MODERATE 12/05/2009 SAMUEL MARIE DDS 296.32 MO DEPRESSIVE RECURRENT MODERATE 12/05/2009 RODRÍGUEZ ESTRADA MD 296.3 2 MO DEPRESSIVE RECURRENT MODERATE 12/05/2009 INDU PUBLIC RELATIONS ASSOCIATE, HEIDE 296 .32 MO DEPRESSIVE RECURRENT MODERATE 12/05/2009 RODRÍGUEZ ESTRADA MD 296.3 2 MO DEPRESSIVE RECURRENT MODERATE 12/05/2009 INDU PUBLIC RELATIONS ASSOCIATE, HEIDE 296 .32 MO DEPRESSIVE RECURRENT MODERATE 12/05/2009 INDU PUBLIC RELATIONS ASSOCIATE, HEIDE 296 .32 MO DEPRESSIVE RECURRENT MODERATE 12/05/2009 INDU PUBLIC RELATIONS ASSOCIATE, HEIDE 296 .32 MO DEPRESSIVE RECURRENT MODERATE 12/05/2009 INDU PUBLIC RELATIONS ASSOCIATE, HEIDE 296 .32 MO DEPRESSIVE RECURRENT MODERATE 12/05/2009 INDU PUBLIC RELATIONS ASSOCIATE, HEIDE 296 .32 MO DEPRESSIVE RECURRENT MODERATE 12/05/2009 JUMA QUACH DO 296.32 MO DEPRESSIVE RECURRENT MODERATE 03/21/2010 LIVIER BAKER DO 959 .7 INJURY, OTHER AND UNSPECIFIED, KNEE, LEG, ANKLE, AND FOOT 03/21/2010 LIVIER BAKER DO 959 .7 INJURY, OTHER AND UNSPECIFIED, KNEE, LEG, ANKLE, AND FOOT 03/21/2010 JUMA QUACH DO 959.7 INJURY, OTHER AND UNSPECIFIED, KNEE, LEG, ANKLE, AND FOOT 03/21/2010 LIVIER BAKER DO 959 .7 INJURY, OTHER AND UNSPECIFIED, KNEE, LEG, ANKLE, AND FOOT 03/21/2010 SAMUEL MARIE DDS 959.7 INJURY, OTHER AND UNSPECIFIED, KNEE, LEG, ANKLE, AND F OOT 03/21/2010 RODRÍGUEZ ESTRADA MD 959.7 INJURY, OTHER AND UNSPECIFIED, KNEE, LEG, ANKLE, AND FOOT 03/21/2010 INDU PUBLIC RELATIONS ASSOCIATE, HEIDE 959 .7 INJURY, OTHER AND UNSPECIFIED, KNEE, LEG, ANKLE, AND FOOT 03/21/2010 RODRÍGUEZ ESTRADA MD 959.7 INJURY, OTHER AND UNSPECIFIED, KNEE, LEG, ANKLE, AND FOOT 03/21/2010 INDU PUBLIC RELATIONS ASSOCIATE, HEIDE 959 .7 INJURY, OTHER AND UNSPECIFIED, KNEE, LEG, ANKLE, AND FOOT 03/21/2010 INDU PUBLIC RELATIONS ASSOCIATE, HEIDE 959 .7 INJURY, OTHER AND UNSPECIFIED, KNEE, LEG, ANKLE, AND FOOT 03/21/2010 INDU PUBLIC RELATIONS ASSOCIATE, HEIDE 959 .7 INJURY, OTHER AND UNSPECIFIED, KNEE, LEG, ANKLE, AND FOOT 03/21/2010 INDU PUBLIC RELATIONS ASSOCIATE, HEIDE 959 .7 INJURY, OTHER AND UNSPECIFIED, KNEE, LEG, ANKLE, AND FOOT 03/21/2010 NIDU PUBLIC RELATIONS ASSOCIATE, HEIDE 959 .7 INJURY, OTHER AND UNSPECIFIED, KNEE, LEG, ANKLE, AND FOOT 03/21/2010 JUMA QUACH DO 959.7 INJURY, OTHER AND UNSPECIFIED, KNEE, LEG, ANKLE, AND FOOT 04/10/2010 LIVIER BAKER DO 356 .9 UNSPECIFIED IDIOPATHIC PERIPHERAL NEUROPATHY 04/10/2010 WERDER DO, LIVIER F 356 .9 UNSPECIFIED IDIOPATHIC PERIPHERAL NEUROPATHY 04/10/2010 PHILOMENA PARRA JUMA K 356.9 UNSPECIFIED IDIOPATHIC PERIPHERAL NEUROPATHY 04/10/2010 DAYDER DO, LIVIER F 356 .9 UNSPECIFIED IDIOPATHIC PERIPHERAL NEUROPATHY 04/10/2010 SAMUEL MARIE DDS 356.9 UNSPECIFIED IDIOPATHIC PERIPHERAL NEUROPATHY 04/10/2010 RODRÍGUEZ ESTRADA MD 356.9 UNSPECIFIED IDIOPATHIC PERIPHERAL NEUROPATHY 04/10/2010 INDU PUBLIC RELATIONS ASSOCIATE, HEIDE 356 .9 UNSPECIFIED IDIOPATHIC PERIPHERAL NEUROPATHY 04/10/2010 RODRÍGUEZ ESTRADA MD 356.9 UNSPECIFIED IDIOPATHIC PERIPHERAL NEUROPATHY 04/10/2010 INDU PUBLIC RELATIONS ASSOCIATE, HEIDE 356 .9 UNSPECIFIED IDIOPATHIC PERIPHERAL NEUROPATHY 04/10/2010 INDU PUBLIC RELATIONS ASSOCIATE, HEIDE 356 .9 UNSPECIFIED IDIOPATHIC PERIPHERAL NEUROPATHY 04/10/2010 INDU PUBLIC RELATIONS ASSOCIATE, HEIDE 356 .9 UNSPECIFIED IDIOPATHIC PERIPHERAL NEUROPATHY 04/10/2010 INDU PUBLIC RELATIONS ASSOCIATE, HEIDE 356 .9 UNSPECIFIED IDIOPATHIC PERIPHERAL NEUROPATHY 04/10/2010 INDU PUBLIC RELATIONS ASSOCIATE, HEIDE 356 .9 UNSPECIFIED IDIOPATHIC PERIPHERAL NEUROPATHY 04/10/2010 HAILEE QUACH DOA K 356.9 UNSPECIFIED IDIOPATHIC PERIPHERAL NEUROPATHY 04/26/2010 WERDER DO, LIVIER F 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 04/26/2010 WERDER DO, LIVIER F 298 .9 P PSYCHOSIS NOS 04/26/2010 WERDER DO, LIVIER F 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 04/26/2010 WERDER DO, LIVIER F 298 .9 P PSYCHOSIS NOS 04/26/2010 QUACH DO, JUMA K 296.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 04/26/2010 QUACH DO JUMA K 298.9 P PSYCHOSIS NOS 04/26/2010 WERDER DO, LIVIER F 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 04/26/2010 WERDER DO, LIVIER F 298 .9 P PSYCHOSIS NOS 04/26/2010 SAMUEL MARIE DDS 296.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 04/26/2010 SAMUEL MARIE DDS 298.9 P PSYCHOSIS NOS 04/26/2010 RODRÍGUEZ ESTRADA MD 296.9 0 MO MOOD DIS NOS 04/26/2010 RODRÍGUEZ ESTRADA MD 298.9 P PSYCHOSIS NOS 04/26/2010 INDU PUBLIC RELATIONS ASSOCIATE, HEIDE 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 04/26/2010 INDU PUBLIC RELATIONS ASSOCIATE, HEIDE 298 .9 P PSYCHOSIS NOS 04/26/2010 SEAN BECKETT, RODRÍGUEZ 296.9 0 MO MOOD DIS NOS 04/26/2010 RODRÍGUEZ ESTRADA MD 298.9 P PSYCHOSIS NOS 04/26/2010 INDU PUBLIC RELATIONS ASSOCIATE, HEIDE 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 04/26/2010 INDU PUBLIC RELATIONS ASSOCIATE, HEIDE 298 .9 P PSYCHOSIS NOS 04/26/2010 INDU PUBLIC RELATIONS ASSOCIATE, HEIDE 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 04/26/2010 INDU PUBLIC RELATIONS ASSOCIATE, HEIDE 298 .9 P PSYCHOSIS NOS 04/26/2010 INDU PUBLIC RELATIONS ASSOCIATE, HEIDE 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 04/26/2010 INDU PUBLIC RELATIONS ASSOCIATE, HEIDE 298 .9 P PSYCHOSIS NOS 04/26/2010 INDU PUBLIC RELATIONS ASSOCIATE, HEIDE 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 04/26/2010 INDU PUBLIC RELATIONS ASSOCIATE, HEIDE 298 .9 P PSYCHOSIS NOS 04/26/2010 INDU PUBLIC RELATIONS ASSOCIATE, HEIDE 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 04/26/2010 INDU PUBLIC RELATIONS ASSOCIATE, HEIDE 298 .9 P PSYCHOSIS NOS 04/26/2010 QUACH DO, JUMA K 296.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 04/26/2010 QUACH DO, JUMA K 298.9 P PSYCHOSIS NOS 05/02/2010 WERDER DO, LIVIER F 311 MO DEPRESS NOS 05/02/2010 WERDER DO, LIVIER F 311 MO DEPRESS NOS 05/02/2010 QUACH DO, JUMA K 311 MO DEPRESS NOS 05/02/2010 WERDER DO, LIVIER F 311 MO DEPRESS NOS 05/02/2010 FRANK DDS, SAMUEL M 3 11 MO DEPRESS NOS 05/02/2010 RODRÍGUEZ ESTRADA MD 311 MO DEPRESS NOS 05/02/2010 INDU PUBLIC RELATIONS ASSOCIATE, HEIDE 311 MO DEPRESS NOS 05/02/2010 RODRÍGUZE ESTRADA MD 311 MO DEPRESS NOS 05/02/2010 INDU PUBLIC RELATIONS ASSOCIATE, HEIDE 311 MO DEPRESS NOS 05/02/2010 INDU PUBLIC RELATIONS ASSOCIATE, HEIDE 311 MO DEPRESS NOS 05/02/2010 INDU PUBLIC RELATIONS ASSOCIATE, HEIDE 311 MO DEPRESS NOS 05/02/2010 INDU PUBLIC RELATIONS ASSOCIATE, HEIDE 311 MO DEPRESS NOS 05/02/2010 INDU PUBLIC RELATIONS ASSOCIATE, HEIDE 311 MO DEPRESS NOS 05/02/2010 QUACH DO, JUMA K 311 MO DEPRESS NOS 06/13/2010 WERDER DO LIVIER F 296 .30 MO DEPRESSIVE RECURRENT UNSPECIFIED 06/13/2010 SAMUEL DOLIVIER F 296 .30 MO DEPRESSIVE RECURRENT UNSPECIFIED 06/13/2010 QUACH DO, JUMA K 296.30 MO DEPRESSIVE RECURRENT UNSPECIFIED 06/13/2010 WERDER DOLIVIER F 296 .30 MO DEPRESSIVE RECURRENT UNSPECIFIED 06/13/2010 FRANK DDS, SAMUEL M 296.30 MO DEPRESSIVE RECURRENT UNSPECIFIED 06/13/2010 RODRÍGUEZ ESTRADA MD 296.3 0 MO DEPRESSIVE RECURRENT UNSPECIFIED 06/13/2010 INDU PUBLIC RELATIONS ASSOCIATE, HEIDE 296 .30 MO DEPRESSIVE RECURRENT UNSPECIFIED 06/13/2010 RODRÍGUEZ ESTRADA MD 296.3 0 MO DEPRESSIVE RECURRENT UNSPECIFIED 06/13/2010 INDU PUBLIC RELATIONS ASSOCIATE, HEIDE 296 .30 MO DEPRESSIVE RECURRENT UNSPECIFIED 06/13/2010 INDU PUBLIC RELATIONS ASSOCIATE, HEIDE 296 .30 MO DEPRESSIVE RECURRENT UNSPECIFIED 06/13/2010 INDU PUBLIC RELATIONS ASSOCIATE, HEIDE 296 .30 MO DEPRESSIVE RECURRENT UNSPECIFIED 06/13/2010 INDU PUBLIC RELATIONS ASSOCIATE, HEIDE 296 .30 MO DEPRESSIVE RECURRENT UNSPECIFIED 06/13/2010 INDU PUBLIC RELATIONS ASSOCIATE, HEIDE 296 .30 MO DEPRESSIVE RECURRENT UNSPECIFIED 06/13/2010 QUACH DO, JUMA K 296.30 MO DEPRESSIVE RECURRENT UNSPECIFIED 08/07/2010 JOSE BAKER DOEN F 305 .1 TOBACCO ABUSE 08/07/2010 JOSE BAKER DOEN F 724 .2 BACK PAIN, LOWER 08/07/2010 SAMUEL DOJOSEEN F 780 .50 SLEEP DISTURBANCE, UNSPECIFIED 08/07/2010 JOSE BAKER DOEN F 799 .22 IRRITIBILITY 08/07/2010 JOSE BAKER DOEN F 305 .1 TOBACCO ABUSE 08/07/2010 JOSE BAKER DOEN F 724 .2 BACK PAIN, LOWER 08/07/2010 DAYDER DOJOSEEN F 780 .50 SLEEP DISTURBANCE, UNSPECIFIED 08/07/2010 JOSE BAKER DOEN F 799 .22 IRRITIBILITY 08/07/2010 QUACH DO, JUMA K 305.1 TOBACCO ABUSE 08/07/2010 QUACH DO, JUMA K 724.2 BACK PAIN, LOWER 08/07/2010 QUACH DO, JUMA K 780.50 SLEEP DISTURBANCE, UNSPECIFIED 08/07/2010 QUACH DO, JUMA K 799.22 IRRITIBILITY 08/07/2010 JOSE BAKER DOEN F 305 .1 TOBACCO ABUSE 08/07/2010 WERDER DO, LIVIER F 724 .2 BACK PAIN, LOWER 08/07/2010 WERDER DO, LIVIER F 780 .50 SLEEP DISTURBANCE, UNSPECIFIED 08/07/2010 DAYDER DO, LIVIER F 799 .22 IRRITIBILITY 08/07/2010 FRANK DDS, SAMUEL Yusuf 305.1 TOBACCO ABUSE 08/07/2010 FRANK DDS, SAMUEL M 724.2 BACK PAIN, LOWER 08/07/2010 FRANK DDS, SAMUEL Madelin 780.50 SLEEP DISTURBANCE, UNSPECIFIED 08/07/2010 FRANK DDS, SAMUEL Yusuf 799.22 IRRITIBILITY 08/07/2010 RODRÍGUEZ ESTRADA MD 305.1 TOBACCO ABUSE 08/07/2010 RODRÍGUEZ ESTRADA MD 724.2 BACK PAIN, LOWER 08/07/2010 RODRÍGUEZ ESTRADA MD 780.5 0 SLEEP DISTURBANCE, UNSPECIFIED 08/07/2010 RODRÍGUEZ ESTRADA MD 799.2 2 IRRITIBILITY 08/07/2010 INDU PUBLIC RELATIONS ASSOCIATE, HEIDE 305 .1 TOBACCO ABUSE 08/07/2010 INDU PUBLIC RELATIONS ASSOCIATE, HEIDE 724 .2 BACK PAIN, LOWER 08/07/2010 INDU PUBLIC RELATIONS ASSOCIATE, HEIDE 780 .50 SLEEP DISTURBANCE, UNSPECIFIED 08/07/2010 INDU PUBLIC RELATIONS ASSOCIATE, HEIDE 799 .22 IRRITIBILITY 08/07/2010 RODRÍGUEZ ESTRADA MD 305.1 TOBACCO ABUSE 08/07/2010 RODRÍGUEZ ESTRADA MD 724.2 BACK PAIN, LOWER 08/07/2010 RODRÍGUEZ ESTRADA MD 780.5 0 SLEEP DISTURBANCE, UNSPECIFIED 08/07/2010 RODRÍGUEZ ESTRADA MD 799.2 2 IRRITIBILITY 08/07/2010 INDU PUBLIC RELATIONS ASSOCIATE, HEIDE 305 .1 TOBACCO ABUSE 08/07/2010 INDU PUBLIC RELATIONS ASSOCIATE, HEIDE 724 .2 BACK PAIN, LOWER 08/07/2010 INDU PUBLIC RELATIONS ASSOCIATE, HEIDE 780 .50 SLEEP DISTURBANCE, UNSPECIFIED 08/07/2010 INDU PUBLIC RELATIONS ASSOCIATE, HEIDE 799 .22 IRRITIBILITY 08/07/2010 INDU PUBLIC RELATIONS ASSOCIATE, HEIDE 305 .1 TOBACCO ABUSE 08/07/2010 INDU PUBLIC RELATIONS ASSOCIATE, HEIDE 724 .2 BACK PAIN, LOWER 08/07/2010 INDU PUBLIC RELATIONS ASSOCIATE, HEIDE 780 .50 SLEEP DISTURBANCE, UNSPECIFIED 08/07/2010 INDU PUBLIC RELATIONS ASSOCIATE, HEIDE 799 .22 IRRITIBILITY 08/07/2010 INDU PUBLIC RELATIONS ASSOCIATE, HEIDE 305 .1 TOBACCO ABUSE 08/07/2010 INDU PUBLIC RELATIONS ASSOCIATE, HEIDE 724 .2 BACK PAIN, LOWER 08/07/2010 INDU PUBLIC RELATIONS ASSOCIATE, HEIDE 780 .50 SLEEP DISTURBANCE, UNSPECIFIED 08/07/2010 INDU PUBLIC RELATIONS ASSOCIATE, HEIDE 799 .22 IRRITIBILITY 08/07/2010 INDU PUBLIC RELATIONS ASSOCIATE, HEIDE 305 .1 TOBACCO ABUSE 08/07/2010 INDU PUBLIC RELATIONS ASSOCIATE, HEIDE 724 .2 BACK PAIN, LOWER 08/07/2010 INDU PUBLIC RELATIONS ASSOCIATE, HEIDE 780 .50 SLEEP DISTURBANCE, UNSPECIFIED 08/07/2010 INDU PUBLIC RELATIONS ASSOCIATE, HEIDE 799 .22 IRRITIBILITY 08/07/2010 INDU PUBLIC RELATIONS ASSOCIATE, HEIDE 305 .1 TOBACCO ABUSE 08/07/2010 INDU PUBLIC RELATIONS ASSOCIATE, HEIDE 724 .2 BACK PAIN, LOWER 08/07/2010 INDU PUBLIC RELATIONS ASSOCIATE, HEIDE 780 .50 SLEEP DISTURBANCE, UNSPECIFIED 08/07/2010 INDU PUBLIC RELATIONS ASSOCIATE, HEIDE 799 .22 IRRITIBILITY 08/07/2010 QUACH DO, JUMA K 305.1 TOBACCO ABUSE 08/07/2010 QUACH DO, JUMA K 724.2 BACK PAIN, LOWER 08/07/2010 QUACH DO, JUMA K 780.50 SLEEP DISTURBANCE, UNSPECIFIED 08/07/2010 QUACH DO, JUMA K 799.22 IRRITIBILITY 09/13/2010 LIVIER BAKER DO 462 ACUTE PHARYNGITIS 09/13/2010 LIVIER BAKER DO 462 ACUTE PHARYNGITIS 09/13/2010 QUACH DO, JUMA K 462 ACUTE PHARYNGITIS 09/13/2010 DAYDER JOSE PARRAEN F 462 ACUTE PHARYNGITIS 09/13/2010 FRANK CACERES, SAMUEL Yusuf 4 62 ACUTE PHARYNGITIS 09/13/2010 RODRÍGUEZ ESTRADA MD 462 ACUTE PHARYNGITIS 09/13/2010 INDU PUBLIC RELATIONS ASSOCIATE, HEIDE 462 ACUTE PHARYNGITIS 09/13/2010 RODRÍGUEZ ESTRADA MD 462 ACUTE PHARYNGITIS 09/13/2010 INDU PUBLIC RELATIONS ASSOCIATE, HEIDE 462 ACUTE PHARYNGITIS 09/13/2010 INDU PUBLIC RELATIONS ASSOCIATE, HEIDE 462 ACUTE PHARYNGITIS 09/13/2010 INDU PUBLIC RELATIONS ASSOCIATE, HEIDE 462 ACUTE PHARYNGITIS 09/13/2010 INDU PUBLIC RELATIONS ASSOCIATE, HEIDE 462 ACUTE PHARYNGITIS 09/13/2010 INDU PUBLIC RELATIONS ASSOCIATE, HEDIE 462 ACUTE PHARYNGITIS 09/13/2010 JUMA QUACH DO 462 ACUTE PHARYNGITIS 11/26/2010 LIVIER BAKER DO F 301 .9 PD PERS DIS NOS 11/26/2010 LIVIER BAKER DO F 301 .9 PD PERS DIS NOS 11/26/2010 JUMA QUACH DO 301.9 PD PERS DIS NOS 11/26/2010 LIVIER BAKER DO F 301 .9 PD PERS DIS NOS 11/26/2010 SAMUEL MARIE DDS 301.9 PD PERS DIS NOS 11/26/2010 RODRÍGUEZ ESTRADA MD 301.9 PD PERS DIS NOS 11/26/2010 INDU PUBLIC RELATIONS ASSOCIATE, HEIDE 301 .9 PD PERS DIS NOS 11/26/2010 RODRÍGUEZ ESTRADA MD 301.9 PD PERS DIS NOS 11/26/2010 INDU PUBLIC RELATIONS ASSOCIATE, HEIDE 301 .9 PD PERS DIS NOS 11/26/2010 INDU PUBLIC RELATIONS ASSOCIATE, HEIDE 301 .9 PD PERS DIS NOS 11/26/2010 INDU PUBLIC RELATIONS ASSOCIATE, HEIDE 301 .9 PD PERS DIS NOS 11/26/2010 INDU PUBLIC RELATIONS ASSOCIATE, HEIDE 301 .9 PD PERS DIS NOS 11/26/2010 INDU PUBLIC RELATIONS ASSOCIATE, HEIDE 301 .9 PD PERS DIS NOS 11/26/2010 JUMA QUACH DO 301.9 PD PERS DIS NOS 04/25/2011 LIVIER BAKER DO F 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 04/25/2011 SAMUEL DO LIVIER F 272 .4 OTHER AND UNSPECIFIED HYPERLIPIDEMIA 04/25/2011 SAMUEL DOLIVIER F V04 .81 FLU DX (3 YRS AND ABOVE, IM) 04/25/2011 SAMUEL MARIE DDS 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 04/25/2011 SAMUEL MARIE DDS 272.4 OTHER AND UNSPECIFIED HYPERLIPIDEMIA 04/25/2011 SAMUEL MARIE DDS V04.81 FLU DX (3 YRS AND ABOVE, IM) 04/25/2011 RODRÍGUEZ ESTRADA MD 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 04/25/2011 RODRÍGUEZ ESTRADA MD 272.4 OTHER AND UNSPECIFIED HYPERLIPIDEMIA 04/25/2011 RODRÍGUEZ ESTRADA MD V04.8 1 FLU DX (3 YRS AND ABOVE, IM) 04/25/2011 VICENTA GRIGGS APRNETTE 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 04/25/2011 INDU GARRIDO HEIDE 272 .4 OTHER AND UNSPECIFIED HYPERLIPIDEMIA 04/25/2011 INDU GARRIDO HEIDE V04 .81 FLU DX (3 YRS AND ABOVE, IM) 04/25/2011 RODRÍGUEZ ESTRADA MD 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 04/25/2011 RODRÍGUEZ ESTRADA MD 272.4 OTHER AND UNSPECIFIED HYPERLIPIDEMIA 04/25/2011 RODRÍGUEZ ESTRADA MD V04.8 1 FLU DX (3 YRS AND ABOVE, IM) 04/25/2011 INDU GARRIDO HEIDE 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 04/25/2011 INDU GARRIDO HEIDE 272 .4 OTHER AND UNSPECIFIED HYPERLIPIDEMIA 04/25/2011 INDU GARRIDO HEIDE V04 .81 FLU DX (3 YRS AND ABOVE, IM) 04/25/2011 INDU PUBLIC RELATIONS ASSOCIATE, HEIDE 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 04/25/2011 INDU PUBLIC RELATIONS ASSOCIATE, HEIDE 272 .4 OTHER AND UNSPECIFIED HYPERLIPIDEMIA 04/25/2011 INDU PUBLIC RELATIONS ASSOCIATE, HEIDE V04 .81 FLU DX (3 YRS AND ABOVE, IM) 04/25/2011 INDU PUBLIC RELATIONS ASSOCIATE, HEIDE 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 04/25/2011 INDU PUBLIC RELATIONS ASSOCIATE, HEIDE 272 .4 OTHER AND UNSPECIFIED HYPERLIPIDEMIA 04/25/2011 INDU PUBLIC RELATIONS ASSOCIATE, HEIDE V04 .81 FLU DX (3 YRS AND ABOVE, IM) 04/25/2011 INDU PUBLIC RELATIONS ASSOCIATE, HEIDE 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 04/25/2011 INDU PUBLIC RELATIONS ASSOCIATE, HEIDE 272 .4 OTHER AND UNSPECIFIED HYPERLIPIDEMIA 04/25/2011 INDU PUBLIC RELATIONS ASSOCIATE, HEIDE V04 .81 FLU DX (3 YRS AND ABOVE, IM) 04/25/2011 INUD PUBLIC RELATIONS ASSOCIATE, HEIDE 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 04/25/2011 INDU PUBLIC RELATIONS ASSOCIATE, HEIDE 272 .4 OTHER AND UNSPECIFIED HYPERLIPIDEMIA 04/25/2011 INUD PUBLIC RELATIONS ASSOCIATE, HEIDE V04 .81 FLU DX (3 YRS AND ABOVE, IM) 04/25/2011 QUACH DO, JUMA K 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 04/25/2011 QUACH DO, JUMA K 272.4 OTHER AND UNSPECIFIED HYPERLIPIDEMIA 04/25/2011 QUACH DO, JUMA K V04.81 FLU DX (3 YRS AND ABOVE, IM) 11/20/2011 LIVIER BAKER DO 466 .0 BRONCHITIS, ACUTE 11/20/2011 LIVIER BAKER DO 786 .05 SHORTNESS OF BREATH 11/20/2011 LIVIER BAKER DO V65 .42 COUNSELING - SMOKING CESSATION 11/20/2011 LIVIER BAKER DO V70 .0 ROUTINE GENERAL MEDICAL EXAMINATION AT A HEALTH CARE FACILITY 11/20/2011 LIVIER BAKER DO 466 .0 BRONCHITIS, ACUTE 11/20/2011 LIVIER BAKER DO 786 .05 SHORTNESS OF BREATH 11/20/2011 LIVIER BAKER DO V65 .42 COUNSELING - SMOKING CESSATION 11/20/2011 WERDER DO, LIVIER F V70 .0 ROUTINE GENERAL MEDICAL EXAMINATION AT A HEALTH CARE FACILITY 11/20/2011 QUACH DO, JUMA K 466.0 BRONCHITIS, ACUTE 11/20/2011 QUACH DO, JUMA K 786.05 SHORTNESS OF BREATH 11/20/2011 QUACH DO, JUMA K V65.42 COUNSELING - SMOKING CESSATION 11/20/2011 QUACH DO, JUMA K V70.0 ROUTINE GENERAL MEDICAL EXAMINATION AT A [facility] 11/20/2011 SAMUEL DO, LIVIER F 466 .0 BRONCHITIS, ACUTE 11/20/2011 WERDER DO, LIVIER F 786 .05 SHORTNESS OF BREATH 11/20/2011 WERTHANH DO, LIVIER F V65 .42 COUNSELING - SMOKING CESSATION 11/20/2011 SAMUEL DO, LIVIER F V70 .0 ROUTINE GENERAL MEDICAL EXAMINATION AT A [facility] 11/20/2011 SAMUEL MARIE DDS 466.0 BRONCHITIS, ACUTE 11/20/2011 FRANK APONTESSAMUEL 786.05 SHORTNESS OF BREATH 11/20/2011 FRANK APONTESSAMUEL V65.42 COUNSELING - SMOKING CESSATION 11/20/2011 SAMUEL MARIE DDS V70.0 ROUTINE GENERAL MEDICAL EXAMINATION AT [facility] 11/20/2011 RODRÍGUEZ ESTRADA MD 466.0 BRONCHITIS, ACUTE 11/20/2011 RODRÍGUEZ ESTRADA MD 786.0 5 SHORTNESS OF BREATH 11/20/2011 RODRÍGUEZ ESTRADA MD V65.4 2 COUNSELING - SMOKING CESSATION 11/20/2011 RODRÍGUEZ ESTRADA MD V70.0 ROUTINE GENERAL MEDICAL EXAMINATION AT A [facility] 11/20/2011 HEIDE GRIGGS APRN 466 .0 BRONCHITIS, ACUTE 11/20/2011 HEIDE GRIGGS APRN 786 .05 SHORTNESS OF BREATH 11/20/2011 HEIDE GRIGGS APRN V65 .42 COUNSELING - SMOKING CESSATION 11/20/2011 HEIDE GRIGGS APRN V70 .0 ROUTINE GENERAL MEDICAL EXAMINATION AT A HEALTH CARE FACILITY 11/20/2011 RODRÍGUEZ ESTRADA MD 466.0 BRONCHITIS, ACUTE 11/20/2011 RODRÍGUEZ ESTRADA MD 786.0 5 SHORTNESS OF BREATH 11/20/2011 RODRÍGUEZ ESTRADA MD V65.4 2 COUNSELING - SMOKING CESSATION 11/20/2011 RODRÍGUEZ ESTRADA MD V70.0 ROUTINE GENERAL MEDICAL EXAMINATION AT A HEALTH CARE FACILITY 11/20/2011 INDU PUBLIC RELATIONS ASSOCIATE, HEIDE 466 .0 BRONCHITIS, ACUTE 11/20/2011 INDU PUBLIC RELATIONS ASSOCIATE, HEIDE 786 .05 SHORTNESS OF BREATH 11/20/2011 INDU PUBLIC RELATIONS ASSOCIATE, HEIDE V65 .42 COUNSELING - SMOKING CESSATION 11/20/2011 INDU PUBLIC RELATIONS ASSOCIATE, HEIDE V70 .0 ROUTINE GENERAL MEDICAL EXAMINATION AT A HEALTH CARE FACILITY 11/20/2011 INDU PUBLIC RELATIONS ASSOCIATE, HEIDE 466 .0 BRONCHITIS, ACUTE 11/20/2011 INDU PUBLIC RELATIONS ASSOCIATE, HEIDE 786 .05 SHORTNESS OF BREATH 11/20/2011 INDU PUBLIC RELATIONS ASSOCIATE, HEIDE V65 .42 COUNSELING - SMOKING CESSATION 11/20/2011 INDU PUBLIC RELATIONS ASSOCIATE, HEIDE V70 .0 ROUTINE GENERAL MEDICAL EXAMINATION AT A HEALTH CARE FACILITY 11/20/2011 INDU PUBLIC RELATIONS ASSOCIATE, HEIDE 466 .0 BRONCHITIS, ACUTE 11/20/2011 INDU PUBLIC RELATIONS ASSOCIATE, HEIDE 786 .05 SHORTNESS OF BREATH 11/20/2011 INDU PUBLIC RELATIONS ASSOCIATE, HEIDE V65 .42 COUNSELING - SMOKING CESSATION 11/20/2011 INDU PUBLIC RELATIONS ASSOCIATE, HEIDE V70 .0 ROUTINE GENERAL MEDICAL EXAMINATION AT A HEALTH CARE FACILITY 11/20/2011 INDU PUBLIC RELATIONS ASSOCIATE, HEIDE 466 .0 BRONCHITIS, ACUTE 11/20/2011 INDU PUBLIC RELATIONS ASSOCIATE, HEIDE 786 .05 SHORTNESS OF BREATH 11/20/2011 INDU PUBLIC RELATIONS ASSOCIATE, HEIDE V65 .42 COUNSELING - SMOKING CESSATION 11/20/2011 INDU PUBLIC RELATIONS ASSOCIATE, HEIDE V70 .0 ROUTINE GENERAL MEDICAL EXAMINATION AT A HEALTH CARE FACILITY 11/20/2011 INDU PUBLIC RELATIONS ASSOCIATE, HEIDE 466 .0 BRONCHITIS, ACUTE 11/20/2011 INDU PUBLIC RELATIONS ASSOCIATE, HEIDE 786 .05 SHORTNESS OF BREATH 11/20/2011 INDU PUBLIC RELATIONS ASSOCIATE, HEIDE V65 .42 COUNSELING - SMOKING CESSATION 11/20/2011 INDU PUBLIC RELATIONS ASSOCIATE, HEIDE V70 .0 ROUTINE GENERAL MEDICAL EXAMINATION AT A HEALTH CARE FACILITY 11/20/2011 QUACH DOHAILEEA K 466.0 BRONCHITIS, ACUTE 11/20/2011 QUACH DOHAILEEA K 786.05 SHORTNESS OF BREATH 11/20/2011 QUACH DO JUMA K V65.42 COUNSELING - SMOKING CESSATION 11/20/2011 QUACH DO JUMA K V70.0 ROUTINE GENERAL MEDICAL EXAMINATION AT A HEALTH CARE FACILITY 11/30/2011 WERDER DO, LIVIER F 793 .80 abnormal mammogram 11/30/2011 SAMUEL , LIVIER F 793 .80 abnormal mammogram 11/30/2011 JUMA QUACH DO 793.80 abnormal mammogram 11/30/2011 SAMUEL PARRA, LIVIER F 793 .80 abnormal mammogram 11/30/2011 FRANK APONTES, SAMUEL Yusuf 793.80 abnormal mammogram 11/30/2011 RODRÍGUEZ ESTRADA MD 793.8 0 abnormal mammogram 11/30/2011 INDU PUBLIC RELATIONS ASSOCIATE, HEIDE 793 .80 abnormal mammogram 11/30/2011 RODRÍGUEZ ESTRADA MD 793.8 0 abnormal mammogram 11/30/2011 INDU PUBLIC RELATIONS ASSOCIATE, HEIDE 793 .80 abnormal mammogram 11/30/2011 INDU PUBLIC RELATIONS ASSOCIATE, HEIDE 793 .80 abnormal mammogram 11/30/2011 INDU PUBLIC RELATIONS ASSOCIATE, HEIDE 793 .80 abnormal mammogram 11/30/2011 INDU PUBLIC RELATIONS ASSOCIATE, HEIDE 793 .80 abnormal mammogram 11/30/2011 INDU PUBLIC RELATIONS ASSOCIATE, HEIDE 793 .80 abnormal mammogram 11/30/2011 JUMA QUACH DO 793.80 abnormal mammogram 11/15/2013 RODRÍGUEZ ESTRADA MD 296.3 1 MO DEPRESSIVE RECURRENT MILD 11/15/2013 INDU PUBLIC RELATIONS ASSOCIATE, HEIDE 296 .31 MO DEPRESSIVE RECURRENT MILD 11/15/2013 INDU PUBLIC RELATIONS ASSOCIATE, HEIDE 296 .31 MO DEPRESSIVE RECURRENT MILD 11/15/2013 INDU PUBLIC RELATIONS ASSOCIATE, HEIDE 296 .31 MO DEPRESSIVE RECURRENT MILD 11/15/2013 INDU PUBLIC RELATIONS ASSOCIATE, HEIDE 296 .31 MO DEPRESSIVE RECURRENT MILD 11/15/2013 INDU PUBLIC RELATIONS ASSOCIATE, HEIDE 296 .31 MO DEPRESSIVE RECURRENT MILD 11/15/2013 JUMA QUACH DO 296.31 MO DEPRESSIVE RECURRENT MILD 07/07/2014 INDU PUBLIC RELATIONS ASSOCIATE, HEIDE 300 .02 AN GEN ANXIETY 07/07/2014 INDU GARRIDO HEIDE 300 .02 AN GEN ANXIETY 07/07/2014 INDU GARRIDO HEIDE 300 .02 AN GEN ANXIETY 07/07/2014 JUMA QUACH DO 300.02 AN GEN ANXIETY 08/29/2014 INDUDANIEL GARRIDO HEIDE 296 .35 MO DEPRESSIVE RECURRENT IN PART OR UNSPECIFIED REMISSION 08/29/2014 JUMA QUACH DO 296.35 MO DEPRESSIVE RECURRENT IN PART OR UNSPECIFIED REMISSION 09/26/2014 QUACH JUMA PARRA K 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 9 11/06/2015 DUYEN CONRAD DO Ot R06. 00 11/06/2015 DUYEN CONRAD DO Ot Z72. 0 11/06/2015 DUYEN CONRAD DO Ot J44. 9 11/06/2015 DUYEN CONRAD DO M Ot R06. 00 11/06/2015 DUYEN CONRAD DO Ot Z72. 0 11/11/2015 DUYEN CONRAD DO Ot J44. 9 CHRONIC OBSTRUCTIVE PULMONARY DISEASE, U 11/11/2015 DUYEN CONRAD DO Ot R06. 00 DYSPNEA, UNSPECIFIED 11/11/2015 DUYEN CONRAD DO M Ot Z72. 0 TOBACCO USE 11/28/2015 DUYEN CONRAD DO Ot J44. 9 CHRONIC OBSTRUCTIVE PULMONARY DISEASE, U 11/28/2015 DUYEN CONRAD DO M Ot R06. 00 DYSPNEA, UNSPECIFIED 11/28/2015 DUYEN CONRAD DO M Ot Z72. 0 TOBACCO USE 12/05/2015 DUYEN CONRAD DO Ot J44. 9 CHRONIC OBSTRUCTIVE PULMONARY DISEASE, U 12/05/2015 DUYEN CONRAD DO Ot R06. 00 DYSPNEA, UNSPECIFIED 12/05/2015 DUYEN CONRAD DO M Ot Z72. 0 TOBACCO USE 12/05/2015 DUYEN CONRAD DO Ot J44. 9 CHRONIC OBSTRUCTIVE PULMONARY DISEASE, U 12/05/2015 DUYEN CONRAD DO Ot R06. 00 DYSPNEA, UNSPECIFIED 12/05/2015 DUYEN CONRAD DO Ot Z72. 0 TOBACCO USE 12/11/2015 DUYEN CONRAD DO Ot J44. 9 CHRONIC OBSTRUCTIVE PULMONARY DISEASE, U 12/11/2015 DUYEN CONRAD DO Ot R06. 00 DYSPNEA, UNSPECIFIED 12/11/2015 DUYEN CONRAD DO Ot Z72. 0 TOBACCO USE 01/21/2016 Ot 786.05 DARINEL RTNESS OF BREATH 01/21/2016 DUYEN CONRAD DO Ot J44. 9 CHRONIC OBSTRUCTIVE PULMONARY DISEASE, U 01/21/2016 DUYEN CONRAD DO Ot R06. 00 DYSPNEA, UNSPECIFIED 01/21/2016 DUYEN CONRAD DO Ot Z72. 0 TOBACCO USE 01/21/2016 Ot 786.05 DARINEL RTNESS OF BREATH 01/21/2016 DUYEN CONRAD DO Ot J44. 9 CHRONIC OBSTRUCTIVE PULMONARY DISEASE, U 01/21/2016 DUYEN CONRAD DO Ot R06. 00 DYSPNEA, UNSPECIFIED 01/21/2016 DUYEN CONRAD DO Ot Z72. 0 TOBACCO USE 02/18/2016 ARIELLA SHEIKH Ot M54.5 LOW BACK PAIN 02/26/2016 ARIELLA SHEIKH Ot M54.5 LOW BACK PAIN 08/25/2016 Ot 786.05 DARINEL RTNESS OF BREATH 08/25/2016 DUYEN CONRAD DO Ot J44. 9 CHRONIC OBSTRUCTIVE PULMONARY DISEASE, U 08/25/2016 DUYEN CONRAD DO Ot R06. 00 DYSPNEA, UNSPECIFIED 08/25/2016 DUYEN CONRAD DO Ot Z72. 0 TOBACCO USE 08/25/2016 THAD PEÑA MD Ot M51. 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 9 CHRONIC OBSTRUCTIVE PULMONARY DISEASE, U 08/28/2016 DUYEN CONRAD DO Ot R06. 00 DYSPNEA, UNSPECIFIED 08/28/2016 DUYEN CONRAD DO Ot Z72. 0 TOBACCO USE 09/02/2016 THAD PEÑA MD Ot M51. 16 INTERVERTEBRAL DISC DISORDERS W RADICULO 09/02/2016 THAD PEÑA MD Ot Z79.899 OTHER RETIREMENT (CURRENT) DRUG THERAPY 04/24/2019 DUYEN CONRAD DO Ot J44. 9 CHRONIC OBSTRUCTIVE PULMONARY DISEASE, U 04/24/2019 DUYEN CONRAD DO Ot R06. 00 DYSPNEA, UNSPECIFIED 04/24/2019 DUYEN CONRAD DO Ot Z72. 0 TOBACCO USE 04/24/2019 BRYAN LOZANO DO Ot M25.562 PAIN IN LEFT KNEE 04/24/2019 BLAKE PARRA, BRYAN B Ot S89.92XA UNSPECIFIED INJURY OF LEFT LOWER LEG, IN 04/24/2019 BRYAN LOZANO DO Ot W01.0XXA FALL SAME LEV FROM SLIP/TRIP W/O STRIKE 04/24/2019 BLAKE PARRA BRYAN Lynnette Ot Y92.[address] OF OCCURRENCE O 04/24/2019 DUYEN CONRAD DO Ot J44. 9 CHRONIC OBSTRUCTIVE PULMONARY DISEASE, U 04/24/2019 DUYEN CONRAD DO Ot R06. 00 DYSPNEA, UNSPECIFIED 04/24/2019 DUYEN CONRAD DO Ot Z72. 0 TOBACCO USE 04/26/2019 BLAKE DO BRYAN B Ot M25.562 PAIN IN LEFT KNEE 04/26/2019 BLAKE PARRA BRYAN B Ot S89.92XA UNSPECIFIED INJURY OF LEFT LOWER LEG, IN 04/26/2019 BLAKE DO BRYAN B Ot W01.0XXA FALL SAME LEV FROM SLIP/TRIP W/O STRIKE 04/26/2019 BRYAN LOZANO DO Ot Y92.[address] OF OCCURRENCE O 10/05/2019 DUYEN CONRAD DO Ot J44. 9 CHRONIC OBSTRUCTIVE PULMONARY DISEASE, U 10/05/2019 DUYEN CONRAD DO Ot R06. 00 DYSPNEA, UNSPECIFIED 10/05/2019 DUYEN CONRAD DO Ot Z72. 0 TOBACCO USE 10/05/2019 JUWAN BANDA APRN Ot M25.462 EFFUSION, LEFT KNEE 10/05/2019 JUWAN BANDA APRN Ot R29.898 OT SYMPTOMS AND SIGNS INVOLVING THE MUS Procedures There is no data. Results Test Result Range - 07/13/17 10:21 GLUCOSE 103 mg/dL 65-99 UREA NITROGEN (BUN) 16 mg/dL 7-25 CREATININE 1.06 mg/dL 0.70-1.33 eGFR NON-AFR. RUSSIAN 80 mL/min/1.73m2 > OR = 60 eGFR 92 mL/min/1.73m2 > OR = 60 BUN/CREATININE RATIO NOT APPLICABLE (calc) 6-22 SODIUM 142 mmol/L 135-146 POTASSIUM 4.6 mmol/L 3.5-5.3 CHLORIDE 106 mmol/L 98-110 CARBON DIOXIDE 29 mmol/L 20-31 CALCIUM 9.1 mg/dL 8.6-10.3 PROTEIN, TOTAL 7.2 g/dL 6.1-8.1 ALBUMIN 4.3 g/dL 3.6-5.1 GLOBULIN 2.9 g/dL (calc) 1.9-3.7 ALBUMIN/GLOBULIN RATIO 1.5 (calc) 1.0-2. 5 BILIRUBIN, TOTAL 0.3 mg/dL 0.2-1.2 ALKALINE PHOSPHATASE 140 U/L 40-115 AST 17 U/L 10-35 ALT 20 U/L 9-46 PDM - ATS (PROFILE 8 WITH CONFIRMATION) - 09/28/18 10:35 Prescribed Drug 1 Clonazepam NRG Creatinine 155.9 mg/dL > or = 20.0 pH 7.18 4.5 - 9.0 Oxidant NEGATIVE mcg/mL <200 Amphetamines NEGATIVE ng/mL <500 medMATCH Amphetamines CONSISTENT NRG Benzodiazepines NEGATIVE ng/mL <100 medMATCH Benzodiazepines INCONSISTENT N RG Marijuana Metabolite POSITIVE ng/mL <20 Cocaine Metabolite NEGATIVE ng/mL <150 medMATCH Cocaine Metab CONSISTENT NRG Opiates NEGATIVE ng/mL <100 medMATCH Opiates CONSISTENT NRG Oxycodone NEGATIVE ng/mL <100 medMATCH Oxycodone CONSISTENT NRG COMMENT NRG Buprenorphine NEGATIVE ng/mL <5 MDMA NEGATIVE ng/mL <500 medMATCH MDMA CONSISTENT NRG Alcohol Metabolites NEGATIVE ng/mL <500 medMATCH Alcohol Metab CONSISTENT NRG 6 Acetylmorphine NEGATIVE ng/mL <10 medMATCH 6 Acetylmorphine CONSISTENT NR G medMATCH Buprenorphine CONSISTENT NRG Marijuana Metabolite 1191 ng/mL <5 medMATCH Marijuana Metab INCONSISTENT N RG CMP - 10/06/18 11:37 GLUCOSE 106 mg/dL 65-99 UREA NITROGEN (BUN) 9 mg/dL 7-25 CREATININE 0.99 mg/dL 0.70-1.33 eGFR NON-AFR. RUSSIAN 86 mL/min/1.73m2 > OR = 60 eGFR 100 mL/min/1.73m2 > OR = 60 BUN/CREATININE RATIO NOT APPLICABLE (calc) 6-22 SODIUM 138 mmol/L 135-146 POTASSIUM 3.9 mmol/L 3.5-5.3 CHLORIDE 105 mmol/L 98-110 CARBON DIOXIDE 25 mmol/L 20-32 CALCIUM 9.7 mg/dL 8.6-10.3 PROTEIN, TOTAL 7.8 g/dL 6.1-8.1 ALBUMIN 4.7 g/dL 3.6-5.1 GLOBULIN 3.1 g/dL (calc) 1.9-3.7 ALBUMIN/GLOBULIN RATIO 1.5 (calc) 1.0-2. 5 BILIRUBIN, TOTAL 0.6 mg/dL 0.2-1.2 ALKALINE PHOSPHATASE 148 U/L 40-115 AST 21 U/L 10-35 ALT 23 U/L 9-46 Complete blood count (CBC) with automate d white blood cell (WBC) differential - 09/12/19 15:30 Blood leukocytes automated count (number/volume) 7.8 10*3/uL 4.3-11.0 Blood erythrocytes automated count (number/volume) 5.18 10*6/uL 4.35-5.85 Venous blood hemoglobin measurement (mass/volume) 15.0 g/dL 13.3-17.7 Blood hematocrit (volume fraction) 46 % 40-54 Automated erythrocyte mean corpuscular volume 89 [ foz_us] 80-99 Automated erythrocyte mean corpuscular h emoglobin (mass per erythrocyte) 29 pg 25-34 Automated erythrocyte mean corpuscular h emoglobin concentration measurement (mass/volume) 33 g/dL 32-36 Automated erythrocyte distribution width ratio 13. 1 % 10.0- 14.5 Automated blood platelet count (count/volume) 238 10*3/uL 130-400 Automated blood platelet mean volume measurement 9.9 [foz_us] 7.4-10.4 Automated blood neutrophils/100 leukocytes 60 % 42-75 Automated blood lymphocytes/100 leukocytes 22 % 12-44 Blood monocytes/100 leukocytes 16 % 0-12 Automated blood eosinophils/100 leukocytes 1 % 0-10 Automated blood basophils/100 leukocytes 1 % 0-10 Blood neutrophils automated count (number/volume) 4.7 10*3 1.8-7.8 Blood lymphocytes automated count (number/volume) 1.7 10*3 1.0-4.0 Blood monocytes automated count (number/volume) 1. 3 10*3 0.0-1.0 Automated eosinophil count 0.1 10*3/uL 0 .0-0.3 Automated blood basophil count (count/volume) 0.1 10*3/uL 0.0-0.1 LIPID PANEL - 10/03/19 09:25 CHOLESTEROL, TOTAL 174 mg/dL <200 HDL CHOLESTEROL 48 mg/dL > OR = 40 TRIGLYCERIDES 137 mg/dL <150 LDL-CHOLESTEROL 102 mg/dL (calc) NRG CHOL/HDLC RATIO 3.6 (calc) <5.0 NON HDL CHOLESTEROL 126 mg/dL (calc) <13 0 CMP - 10/03/19 09:25 GLUCOSE 112 mg/dL 65-139 UREA NITROGEN (BUN) 13 mg/dL 7-25 CREATININE 1.03 mg/dL 0.70-1.33 eGFR NON-AFR. RUSSIAN 81 mL/min/1.73m2 > OR = 60 eGFR 94 mL/min/1.73m2 > OR = 60 BUN/CREATININE RATIO NOT APPLICABLE (calc) 6-22 SODIUM 142 mmol/L 135-146 POTASSIUM 4.5 mmol/L 3.5-5.3 CHLORIDE 104 mmol/L 98-110 CARBON DIOXIDE 31 mmol/L 20-32 CALCIUM 9.4 mg/dL 8.6-10.3 PROTEIN, TOTAL 7.3 g/dL 6.1-8.1 ALBUMIN 4.4 g/dL 3.6-5.1 GLOBULIN 2.9 g/dL (calc) 1.9-3.7 ALBUMIN/GLOBULIN RATIO 1.5 (calc) 1.0-2. 5 BILIRUBIN, TOTAL 0.4 mg/dL 0.2-1.2 ALKALINE PHOSPHATASE 152 U/L 35-144 AST 16 U/L 10-35 ALT 25 U/L 9-46 Encounters ACCT No. Visit Date/Time Discharge Status Pt. Type Provider Facility Loc./Unit Complaint [id number] 09/26/2014 14:52:00 09/26/2014 23:59: 59 CLS Outpatient PHILOMENA JUMA PARRA [id number] 08/29/2014 13:21:00 08/29/2014 23:59: 59 [place] Out[facility] HEIDE GRIGGS APRN [id number] 07/07/2014 13:12:00 07/07/2014 23:59: 59 [place] Out[facility] HEIDE GRIGGS APRN [id number] 07/07/2014 13:12:00 07/07/2014 23:59: 59 [place] Out[facility] HEIDE GRIGGS APRN [id number] 03/23/2014 14:49:00 03/23/2014 23:59: 59 CLS Outpatient HEIDE GRIGGS APRN [id number] 11/15/2013 15:02:00 11/15/2013 23:59: 59 CLS Outpatient HEIDE GRIGGS APRN [id number] 11/15/2013 15:02:00 11/15/2013 23:59: 59 CLS Outpatient RODRÍGUEZ ESTRADA MD [id number] 10/13/2013 10:35:00 10/13/2013 23:59: 59 CLS Outpatient HEIDE GRIGGS APRN [id number] 10/13/2013 10:35:00 10/13/2013 23:59: 59 CLS Outpatient RODRÍGUEZ ESTRADA MD [id number] 05/12/2013 12:14:00 05/12/2013 23:59: 59 CLS Outpatient SAMUEL MARIE DDS [id number] 04/11/2013 13:54:00 04/11/2013 23:59: 59 CLS Outpatient LIVIER BAKER DO [id number] 10/13/2012 11:56:00 10/13/2012 23:59: 59 [place] [id number] 02/18/2012 15:19:00 02/18/2012 23:59:5 9 CLS Outpatient LIVIER BAKER DO [id number] 02/18/2012 15:19:00 02/18/2012 23:59: 59 CLS Outpatient LIVIER BAKER DO [id number] 10/05/2019 05:54:00 020 13:59:00 DIS Outpatient JER HICKMAN MD [facility] PREOP BREAKDOWN OF INTERNAL ORTHOPEDIC DEVICE [id number] 09/12/2019 15:17:00 020 23:59:59 CLS Outpatient JUWAN BANDA APRN [facility] LAB FS M25.562 M25.469 R29.898 [id number] 04/24/2019 13:08:00 019 14:31:00 DIS Emergency BRYAN LOZANO DO [facility] ER FS FALL - LT KNEE PAIN [id number] 08/25/2016 10:53:00 017 12:52:00 DIS Outpatient THAD PEÑA MD [facility] CARD DISC DISORDER [id number] 02/22/2016 09:45:00 016 14:48:00 DIS Outpatient ARIELLA SHEIKH [facility] REHAB LOW BACK PAIN [id number] 11/05/2015 15:06:00 016 23:59:59 CLS Outpatient DUYEN CONRAD DO [facility] RT COPD,DYSPNEA [id number] 10/12/2019 12:00:00 P EN Preadyoselyn HICKMAN MD, JER Romo [facility] BREAKDOWN OF INTERNAL ORTHOP EDIC DEVICE [id number] 01/23/2012 12:18:00 Document Registration [id number] 09/26/2019 09:30:00 09/26/2019 23:59:5 9 CLS Outpatient ARIELLA SHEIKH APRN [facility] [id number] 10/03/2019 09:20:00 Document Registration [id number] 10/06/2018 11:00:00 Document Registration [id number] 09/28/2018 10:00:00 Document Registration [id number] 07/13/2017 10:00:00 Document Registration
[2019-10-12] MEDS ORDERED: ONDANSETRON 4 MG/2 ML (SDV) Z0FRAN ONE (11:25)
[2019-10-12] MEDS ORDERED: ONDANSETRON 4 MG/2 ML (SDV) Z0FRAN IVP PRN (12:00)
[2019-10-12] MEDS ORDERED: HYDROmorphone 2 MG/ML VIAL (DILAUDID) IV ONE (12:00)
[2019-10-12] MEDS ORDERED: morphine INJ 10 MG/ML 1ML (SYR OR VIAL) IVP ONE (12:00)
[2019-10-12] MEDS ORDERED: morphine INJ 10 MG/ML 1ML (SYR OR VIAL) ONE (12:12)
[2019-10-12] MEDS ORDERED: BUPIVACAINE 0.25% 30 ML (SENSORCAINE) VIAL ONE (12:56)
[2019-10-12] MEDS ORDERED: HYDR-34 PO (13:05)
--- NOTE | 2019-10-12 13:50 | NUR ---
lr bag infused 900ml
--- NOTE | 2019-10-12 13:52 | Physical Therapy Progress Note ---
Therapy Progress Note Patient has crutches present and report he has utilized them "on and off" x 3 years and declined PT. Patient is WBAT per RN left LE and patient reports he was issued HEP from physician in preop. Patient continued to decline PT intervention. RN present. No PT indicated. NATHAN TRAORE PT Oct 12, 2019 13:52
--- NOTE | 2019-10-12 13:52 | Anesthesia-General Post-Op ---
General Patient Condition Mental Status/LOC: Same as Preop Cardiovascular: Satisfactory Nausea/Vomiting: Absent Respiratory: Satisfactory Pain: Controlled Complications: Absent Post Op Complications Complications None Follow Up Care/Instructions Patient Instructions None needed. Anesthesia/Patient Condition Patient Condition Patient is doing well, no complaints, stable vital signs, no apparent adverse anesthesia problems. He is doing well after his adductor canal block that was done in SD[facility] post-op for postop pain control. DEBBIE ABEBE DO Oct 12, 2019 13:52
--- NOTE | 2019-10-12 16:01 | OPERATIVE REPORT ---
DATE OF SERVICE: 10/12/2019 PREOPERATIVE DIAGNOSIS: Left tibia symptomatic hardware. POSTOPERATIVE DIAGNOSIS: Left tibia cyst. PROCEDURE: Left tibia cyst excision with debridement. SURGEON: Jer Hickman MD SOCIAL WORK SUPERVISOR: LELE Clark, who assisted throughout the procedure and closed the incision. ANESTHESIA: General endotracheal by Dr. Culver. TOURNIQUET TIME: Approximately 10 minutes at 300 mmHg. ESTIMATED BLOOD LOSS: Minimal. DRAINS: None. COMPLICATIONS: None. POSTOPERATIVE PLAN: Weightbearing as tolerated. The patient was transferred to the recovery room awake and stable condition. STATEMENT OF MEDICAL NECESSITY: The patient is a 54-year-old gentleman who underwent a left ACL reconstruction with a bioabsorbable tibial screw approximately two years ago. At the tibial screw site, he had swelling and tenderness. It was felt that this was secondary to the breakdown of the bioabsorbable screw and due to tenderness and swelling, the patient elected to proceed with surgical intervention. DESCRIPTION OF PROCEDURE: After risks and benefits of procedure were discussed and questions were answered, informed consent was signed and placed on chart. The operative site was confirmed in the preoperative holding area initialed by the surgeon. The patient was then transferred to the operating room. After adequate levels of general endotracheal anesthetic were obtained, a timeout was called, confirming the operative site. The left lower extremity was prepped and draped in the usual sterile fashion with the leg elevated, tourniquet inflated to 300 mmHg. The previous incision was utilized. Underlying soft tissues were carefully dissected. There was found to be a cyst wall at the tibial screw exit site. This was excised and the cystic material, which was secondary to the breakdown of the bioabsorbable screw, was removed and the area was debrided sharply with an elevator and rongeur. There was no communication into the knee joint itself. The adjacent tibia was normal in appearance grossly. This was copiously irrigated and the fascia was closed over the cystic area with #0 Vicryl in [id number] interrupted fashion. The deep subcutaneous tissue was closed with #0 Vicryl in [id number] interrupted fashion as well, 2-0 Vicryl was used in subcutaneous tissue, skin was closed with royce. A soft dressing was applied. Tourniquet was deflated and the patient transferred to recovery room awake and in stable condition. Job ID: [id number] DocumentID: [id number] Dictated Date: 10/12/2019 11:47:20 Wax Pumper Date: 10/12/2019 16:01:23 Dictated By: JER HICKMAN MD
--- NOTE | 2019-10-14 12:44 | Progress Note ---
Standard Progress Note Progress Notes/Assess & Plan Date Seen by a Provider: Oct 12, 2019 Time Seen by a Provider: 10:20 Progress/Assessment & Plan Addendum to Anesthesia Record: Anesthesia Plan: GA with Lt adductor canal block post-op for post-op pain control per surgeon request if requested by patient. DEBBIE ABEBE DO Oct 14, 2019 12:44
== END 2019-10-12 14:00 | disposition home or self-care (01) ==
LOC: SDC 10:02
PROVIDERS: ATTEND Orthopaedic Surgery
DX: T84.418A Breakdown (mechanical) of other internal orthopedic devices, implants and grafts, initial encounter (principal); M85.462 Solitary bone cyst, left tibia and fibula; G62.9 Polyneuropathy, unspecified; F17.210 Nicotine dependence, cigarettes, uncomplicated; F41.9 Anxiety disorder, unspecified; F32.9 Major depressive disorder, single episode, unspecified; E78.5 Hyperlipidemia, unspecified; Z89.422 Acquired absence of other left toe(s); Z79.899 Other long term (current) drug therapy; Z11.2 Encounter for screening for other bacterial diseases
CPT/HCPCS: 87081

== ENCOUNTER 2020-01-22 09:12 | Emergency (ER) | payer MEDICARE, MEDICAID ==
[~2020-01-22] VITALS: Ht 182 cm; Wt 94.3 kg
[~2020-01-22 09:12] MED LIST changes: +HYDR-34 PO; -HYDROcodone/APAP 7.5 MG/325 MG (LORTAB, LORCET PLUS) TABLET PO PRN
--- NOTE | 2020-01-22 09:13 | ED General ---
General Stated Complaint: LT KNEE PAIN History of Present Illness Date Seen by Provider: Jan 22, 2020 Time Seen by Provider: 09:13 Initial Comments Patient is a 54 y/o male who comes to the ER today c/o left knee pain. He has extensive hx of problems with the same knee and is s/p three different surgeries, most recently to remove a screw according to the patient. Today he comes to the ER c/o severely worsening pain over the last two days. Pain is along the joint line and worse with movement. No recent trauma. No fever. Denies prior hx of similar symptoms. Allergies and Home Medications Allergies Coded Allergies: varenicline (Unverified Adverse Reaction, Unknown, 10/12/19) Home Medications Amitriptyline HCl 25 Mg Tablet, 25 MG PO HS, (Reported) Atorvastatin Calcium 40 Mg Tablet, 40 MG PO DAILY, (Reported) Citalopram Hydrobromide 40 Mg Tablet, 40 MG PO DAILY, (Reported) Gabapentin 600 Mg Tablet, 600 MG PO DAILY, (Reported) Hydrocodone/Acetaminophen 1 Each Tablet, 2 EACH PO Q6H Prescribed by: VIRGIL CORDERO on 01/22/20 0941 Ibuprofen 800 Mg Tablet, 800 MG PO Q8H PRN for PAIN-MILD Prescribed by: VIRGIL CORDERO on 01/22/20 0942 Patient Home Medication List Home Medication List Reviewed: Yes Review of Systems Review of Systems Constitutional: no symptoms reported Respiratory: no symptoms reported Cardiovascular: no symptoms reported Musculoskeletal: see HPI Skin: no symptoms reported All Other Systems Reviewed Negative Unless Noted: Yes Physical Exam Vital Signs Vital Signs - First Documented 01/22/20 09:16 Temp 36.3 Pulse 94 Resp 16 B/P (MAP) 178/102 (127) Pulse Ox 96 Capillary Refill : Height, Weight, BMI Height: '" Weight: lbs. oz. kg; BMI Method: General Appearance: WD/WN, Mild Distress Neck: Full Range of Motion Respiratory: Lungs Clear Cardiovascular: Regular Rate, Rhythm Extremity: Normal Capillary Refill, Normal Inspection (no gross deformity about the left knee. no redness or erythema, ROM limited 2/2 pain. No effusion.) Neurologic/Psychiatric: Alert, Oriented x3 Skin: Normal Color Progress/Results/Core Measures Suspected Sepsis SIRS Temperature: Pulse: Respiratory Rate: Blood Pressure / Mean: Results/Orders My Orders Orders - VIRGIL CORDERO DO Knee 3 View Left (6/28/20 09:18) Knee Immobilizer (01/22/20 09:37) Ibuprofen Tablet (Motrin Tablet) (01/22/20 09:45) Hydrocodone/Apap 5/325 Tablet (Lortab 5 (01/22/20 09:45) Vital Signs/I&O 01/22/20 09:16 Temp 36.3 Pulse 94 Resp 16 B/P (MAP) 178/102 (127) Pulse Ox 96 Capillary Refill : Progress Note : Time: 09:20 Progress Note Patient is seen and examined. Xrays ordered of left knee. No acute findings on plain film imaging. Patient placed in knee immobilizer. Given norco, motrin for pain. Recommended to contact primary orthopedist tomorrow for close f/u. Departure Impression Primary Impression: Left knee pain Disposition: 01 HOME, SELF-CARE Condition: Stable Departure-Patient Inst. Scripts Ibuprofen (Ibuprofen) 800 Mg Tablet 800 MG PO Q8H PRN for PAIN-MILD, #30 TAB Prov: VIRGIL CORDERO DO 01/22/20 Hydrocodone/Acetaminophen (Hydrocodone-Acetamin 5-325 mg) 1 Each Tablet 2 EACH PO Q6H for Severe Pain, #24 TAB Prov: VIRGIL CORDERO DO 01/22/20 VIRGIL CORDERO DO Jan 22, 2020 09:13
[2020-01-22] MEDS ORDERED: HYDR-83 PO (09:41)
[2020-01-22] MEDS ORDERED: IBUP-1780 PO (09:42)
[2020-01-22] MEDS ORDERED: IBUPROFEN 800 MG (MOTRIN) TAB PO ONE (09:45)
[2020-01-22] MEDS ORDERED: HYDROcodone/APAP 5 MG/325 MG (LORTAB) TAB PO ONE (09:45)
[2020-01-22 09:49] VITALS: BP 149/93
--- NOTE | 2020-01-22 10:06 | Diagnostic Imaging Report ---
INDICATION: Left knee injury, pain, prior ACL repair COMPARISON: 09/12/19 FINDINGS: 3 views of the left knee demonstrate prior ACL repair. There is minimal degenerative changes in all 3 compartments. This is most pronounced involving the patellofemoral joint. There is trace suprapatellar joint effusion. There is no fracture or dislocation. IMPRESSION: 1. Stable ACL repair 2. Minimal degenerative changes with trace suprapatellar joint effusion. No fracture. Dictated by: Dictated on workstation # [id number]
== END 2020-01-22 09:52 | disposition home or self-care (01) ==
LOC: EDUNIT# 09:12 → ER FS 09:13
DX: M25.562 Pain in left knee (principal); Z88.8 Allergy status to other drugs, medicaments and biological substances
CPT/HCPCS: 73562; 99283; L1830

== ENCOUNTER 2020-03-31 20:32 | Emergency (ER) | payer MEDICARE, MEDICAID ==
[~2020-03-31] VITALS: Ht 180.3 cm; Wt 92.7 kg
[~2020-03-31 20:32] MED LIST changes: +ACHD5005 PO; +IBUP-1780 PO
[2020-03-31] MEDS ORDERED: KETOROLAC 60 MG/2 ML VIAL IM STA (20:43)
[2020-03-31] MEDS ORDERED: ORPHENADRINE 60 MG/2 ML (NORFLEX) AMP (ED ONLY) IM STA (20:43)
--- NOTE | 2020-03-31 20:43 | ED Lower Extremity ---
General Chief Complaint: Lower Extremity Stated Complaint: L KNEE PAIN History of Present Illness Date Seen by Provider: Mar 31, 2020 Time Seen by Provider: 20:41 Initial Comments 54-year-old male presents with left knee pain. Patient reports he's had multiple surgeries for anterior cruciate ligament and PCL tears. Patient reports that he was standing up yesterday when he felt a "pop" patient presents today because the pain all around the knee. Patient has an Felice wrap. There is no obvious swelling to the knee there is no erythema per him. He has painful range of motion. Allergies and Home Medications Allergies Coded Allergies: varenicline (Unverified Adverse Reaction, Unknown, 10/12/19) Home Medications Amitriptyline HCl 25 Mg Tablet, 25 MG PO HS, (Reported) Atorvastatin Calcium 40 Mg Tablet, 40 MG PO DAILY, (Reported) Citalopram Hydrobromide 40 Mg Tablet, 40 MG PO DAILY, (Reported) Gabapentin 600 Mg Tablet, 600 MG PO DAILY, (Reported) Hydrocodone/Acetaminophen 1 Each Tablet, 2 EACH PO Q6H Prescribed by: VIRGIL CORDERO on 01/22/20 0941 Ibuprofen 800 Mg Tablet, 800 MG PO Q8H PRN for PAIN-MILD Prescribed by: VIRGIL CORDERO on 01/22/20 0942 Patient Home Medication List Home Medication List Reviewed: Yes Review of Systems Constitutional: no symptoms reported Respiratory: no symptoms reported Cardiovascular: no symptoms reported Gastrointestinal: no symptoms reported Musculoskeletal: see HPI Skin: no symptoms reported Past Bmrbosc-Wncmjq-Iuodsq Hx Past Med/Social Hx: Reviewed Nursing Past Med/Soc Hx Patient Social History Type Used: Cigarettes 2nd Hand Smoke Exposure: No Recent Foreign Travel: No Contact w/Someone Who Travel: No Recent Hopitalizations: No Immunizations Up To Date Date of Influenza Vaccine: May 02, 2019 Seasonal Allergies Seasonal Allergies: No Past Medical History Surgeries: Yes (Left ACL X2, HERNIA, AMPUTATION LEFT TOESx2) Respiratory: No Currently Using CPAP: No Currently Using BIPAP: No Cardiac: Yes High Cholesterol Neurological: Yes Neuropathy Sexually Transmitted Disease: No HIV/AIDS: No Genitourinary: No Gastrointestinal: No Musculoskeletal: Yes (left knee ACL injury/repair) Endocrine: No HEENT: No (GLASSES) Loss of Vision: Denies Hearing Impairment: Denies Cancer: No Psychosocial: Yes Anxiety, Depression Integumentary: No Blood Disorders: No Adverse Reaction/Blood Tranf: No (N/A) Physical Exam Vital Signs Vital Signs - First Documented 03/31/20 20:40 Temp 36.7 Pulse 91 Resp 20 B/P (MAP) 170/102 (124) Pulse Ox 96 Capillary Refill : Height, Weight, BMI Height: 6'0.00" Weight: 200lbs. 0.0oz. [id number]; 28.00 BMI Method: General Appearance: WD/WN Cardiovascular: normal peripheral pulses, regular rate, rhythm Respiratory: chest non-tender, lungs clear Hips: bilateral hip non-tender Legs: bilateral leg non-tender Knees: left knee other (resist want the moves knee. No obvious swelling or erythema. Pain with any palpation diffusely) Progress/Results/Core Measures Results/Orders My Orders Orders - SIOMAAR YARBROUGH DO Flexion Limit Knee (03/31/20 20:43) Ketorolac Injection (Toradol Injection) (03/31/20 20:43) Orphenadrine Inj (Ed Only) (Norflex Inje (03/31/20 20:43) Knee 3 View Left (03/31/20 20:45) Vital Signs/I&O 03/31/20 20:40 Temp 36.7 Pulse 91 Resp 20 B/P (MAP) 170/102 (124) Pulse Ox 96 Diagnostic Imaging Diagonstic Imaging: Xray Plain Films/CT/US/NM/MRI: knee Comments No acute findings Reviewed: Reviewed by Me Departure Impression Primary Impression: Unspecified internal derangement of left knee Disposition: HOME, SELF-CARE Condition: Stable Departure-Patient Inst. Referrals: JUMA QUACH DO (PCP) Primary Care Physician ARIELLA SHEIKH (Family) Primary Care Physician Patient Instructions: Internal Derangement of the Knee Add. Discharge Instructions: Call your orthopedic surgeon on Thursday morning for an appointment time for recheck in today symptoms All discharge instructions reviewed with patient and/or family. Voiced understanding. SIOMARA YARBROUGH DO Mar 31, 2020 20:43
--- NOTE | 2020-03-31 21:18 | Diagnostic Imaging Report ---
INDICATION: Left knee pain. Prior ACL reconstruction. COMPARISON: 01/22/2020. TECHNIQUE: Three views of the left knee were obtained. FINDINGS: No acute fracture. Prior ACL reconstruction has been performed with an Endobutton along the lateral aspect of distal femur. Small knee joint effusion. Mild nonuniform joint space narrowing in the medial compartment is unchanged. No soft tissue gas or unintended radiopaque foreign body. IMPRESSION: 1. No acute osseous abnormality in the left knee. 2. 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 Dictated by: Dictated on workstation # [id number]
[2020-03-31 21:25] VITALS: BP 170/102
== END 2020-03-31 21:25 | disposition home or self-care (01) ==
LOC: EDUNIT# 20:32 → ER FS 20:33
DX: M23.92 Unspecified internal derangement of left knee (principal); E78.00 Pure hypercholesterolemia, unspecified; G62.9 Polyneuropathy, unspecified; F41.9 Anxiety disorder, unspecified; F32.9 Major depressive disorder, single episode, unspecified; Z98.890 Other specified postprocedural states; Z89.422 Acquired absence of other left toe(s); Z88.8 Allergy status to other drugs, medicaments and biological substances; X50.1XXA Overexertion from prolonged static or awkward postures, initial encounter
CPT/HCPCS: 73562; 99283; L1830

== ENCOUNTER → 2022-07-04 | Outpatient (CLI) | payer MEDICARE, MEDICAID ==
--- NOTE | 2022-07-04 17:28 | Diagnostic Imaging Report ---
CLINICAL HISTORY: Neck pain with left arm radiculopathy. COMPARISON: None. TECHNIQUE: 4 views of the cervical spine. FINDINGS: There is no acute fracture or dislocation of the cervical spine. Alignment is anatomic. Vertebral body heights are maintained. No focal osseous lesions are seen. The dens is unremarkable. The prevertebral soft tissues are normal. The included lungs are clear. IMPRESSION: 1. No acute fracture or dislocation in the cervical spine. Dictated by: Dictated on workstation # [id number]
== END ==
LOC: RAD FS 14:41
PROVIDERS: ATTEND Nurse Practitioner Family
DX: M79.2 Neuralgia and neuritis, unspecified (principal); M54.2 Cervicalgia
CPT/HCPCS: 72040

== ENCOUNTER → 2022-09-02 | Outpatient (CLI) | payer MEDICARE, MEDICAID ==
--- NOTE | 2022-09-02 11:16 | Diagnostic Imaging Report ---
EXAMINATION: Left shoulder radiographs, 2 views. COMPARISON: None. HISTORY: 57-year-old male, left shoulder pain. FINDINGS: The acromioclavicular joint is normally aligned. There are mild acromioclavicular degenerative changes without identified large undersurface osteophyte. The glenohumeral joint space is well-maintained. Humeral head is normally positioned relative to the glenoid. There is no identified acute fracture. IMPRESSION: 1. Mild acromioclavicular degenerative changes without large undersurface osteophyte. 2. Intact glenohumeral joint. 3. No acute bony abnormality. Dictated by: Dictated on workstation # [id number]
== END ==
LOC: RAD FS 10:02
PROVIDERS: ATTEND Nurse Practitioner Family
DX: M19.012 Primary osteoarthritis, left shoulder (principal)
CPT/HCPCS: 73030